=== PATIENT | female | born 1980 | race Caucasian/White ===

== ENCOUNTER → 2016-06-23 | Outpatient (CLI) | payer OTHER ==
[2016-06-23 17:45] LABS: CH 30.5; CHCM 33.2; HCT 37.8 % (34.0-46.0); HDW 2.47; HGB 12.6 gm/dL (11.4-16.0); MCH 30.8 pg (25.0-35.0); MCHC 33.3 g/dL (31.0-37.0); MCV 92.3 fL (80.0-100.0); Mean Platelet Volume 7.8; RDW 12.8 % (11.5-15.5); WBC 8.1 k/uL (3.8-10.6)
[2016-06-23 17:54] LABS: ALT 35 U/L (9-52); AST 23 U/L (14-36); Alkaline Phosphatase 72 U/L (38-126); Amylase 82 U/L (30-110); Anion Gap 12 mmol/L; Blood Urea Nitrogen 15 mg/dL (7-17); Calcium 9.7 mg/dL (8.4-10.2); Carbon Dioxide 23 mmol/L (22-30); Chloride 105 mmol/L (98-107); Glucose 90 mg/dL (74-99); Non-African American GFR(MDRD) >60 (>60 ml/min/1.73 sqM); Potassium 4.5 mmol/L (3.5-5.1); Sodium 140 mmol/L (137-145); Total Bilirubin 0.4 mg/dL (0.2-1.3)
== END | disposition home or self-care (01) ==
LOC: LABWHC1 17:25
PROVIDERS: ATTEND Physician Assistant Medical
DX: K21.9 Gastro-esophageal reflux disease without esophagitis (principal); R10.9 Unspecified abdominal pain; R11.10 Vomiting, unspecified; R53.83 Other fatigue
CPT/HCPCS: 36415; 80053; 82150; 83690; 84443; 85027

== ENCOUNTER 2016-08-14 11:31 | Emergency (ER) | payer OTHER ==
[2016-08-14 11:42] VITALS: RESP 20; TEMP 98.1
[2016-08-14 12:24] LABS: Basophils % (A) 0 %; CHCM 33.6; Eosinophils # (A) 0.1 k/uL (0-0.7); Eosinophils % (A) 2 %; HCT 34.7 % (34.0-46.0); HDW 2.44; HGB 11.5 gm/dL (11.4-16.0); Luc # (Auto) 0.09; Luc % (Auto) 2; Lymphocytes # (A) 1.5 k/uL (1.0-4.8); Lymphocytes % (A) 26 %; MCH 30.6 pg (25.0-35.0); MCV 92.7 fL (80.0-100.0); Monocytes # (A) 0.2 k/uL (0-1.0); Monocytes % (A) 4 %; Neutrophils # (A) 3.9 k/uL (1.3-7.7); Neutrophils % (A) 67 %; RBC 3.75 m/uL (3.80-5.40); RDW 13.4 % (11.5-15.5); WBC 5.9 k/uL (3.8-10.6); WBC (Perox) 6.06
--- NOTE | 2016-08-14 13:07 | US ---
EXAMINATION TYPE: US OB <= 14 wk fetus DATE OF EXAM: 08/14/2016 12:31 PM COMPARISON: 07/23/2016 ultrasound CLINICAL HISTORY: pain. cramping EXAM PERFORMED: Transabdominal (TA) EXAM MEASUREMENTS: GESTATIONAL AGE / DATING Physician Established: (13 weeks/6 days) EDC: 02/13/17 Dates by LMP: unknown Dates by First Scan: (13 weeks/4 days) EDC: 02/15/17 Dates by Current Scan for: (13 weeks/5 days) EDC: 02/14/17 MATERNAL ANATOMY Uterus: 10.3 x 7.4 x 9.5cm Right Ovary: 3.6 x 1.7 x 1.3cm Left Ovary: 4.4 x 2.9 x 1.7cm Post CDS / Adnexa: wnl Presence of free fluid: no GESTATION / SURVEY CRL: 7.7cm (13 weeks/5 days) Yolk Sac (normal less than 6mm): not seen Heart Rate: 147 bpm Rhythm: Normal IUP: Viable IUP Nuchal Translucency 10-14wks (normal less than 3mm): 0.2mm Date of LMP: unknown Beta HcG (if available): unavailable IMPRESSION: Single viable IUP 13wks/5days with OTILIO of 02/14/17. Gestational age is concordant with the recent fet al ultrasound of 07/23/2016.
--- NOTE | 2016-08-14 13:07 | ED ---
General Adult HPI - General Chief complaint: Abdominal Pain Stated complaint: Abdominal Pain 14wks Preg Time Seen by Provider: 08/14/16 11:44 Source: patient, RN notes reviewed, old records reviewed Mode of arrival: ambulatory Limitations: no limitations - History of Present Illness Initial comments: This is a 35-year-old female the ER for evaluation of vaginal bleeding in , is known a positive blood type, patient is a G5 with 1 live , 3 miscarriages fifth . Patient admitted to mild spotting, no bowel pain or cramping. No nausea vomiting, no recent issues of no other issues. - Related Data Home Medications Medication Instructions Recorded Confirmed Flintstones Vitamin 1 tab PO BID 07/23/16 08/14/16 Allergies Allergy/AdvReac Type Severity Reaction Status Date / Time amoxicillin Allergy Anaphylaxis Verified 08/14/16 12:20 Penicillins Allergy Anaphylaxis Verified 08/14/16 12:20 morphine AdvReac Nausea & Verified 08/14/16 12:20 Vomiting RED & GREEN PEPPER Allergy Anaphylaxis Uncoded 08/14/16 12:20 Review of Systems ROS Statement: Those systems with pertinent positive or pertinent negative responses have been documented in the HPI. ROS Other: All systems not noted in ROS Statement are negative. Past Medical History Past Medical History: Asthma Additional Past Medical History / Comment(s): LOW BLOOD SUGAR History of Any Multi-Drug Resistant Organisms: None Reported Past Surgical History: Cholecystectomy Past Psychological History: Anxiety, Bipolar, Depression, Schizophrenia Smoking Status: Never smoker Past Alcohol Use History: None Reported Past Drug Use History: None Reported General Exam Limitations: no limitations General appearance: alert, in no apparent distress Head exam: Present: atraumatic, normocephalic, normal inspection Eye exam: Present: normal appearance, PERRL, EOMI. Absent: scleral icterus, conjunctival injection, periorbital swelling ENT exam: Present: normal exam, mucous membranes moist Neck exam: Present: normal inspection. Absent: tenderness, meningismus, lymphadenopathy Respiratory exam: Present: normal lung sounds bilaterally. Absent: respiratory distress, wheezes, rales, rhonchi, stridor Cardiovascular Exam: Present: regular rate, normal rhythm, normal heart sounds. Absent: systolic murmur, diastolic murmur, rubs, gallop, clicks GI/Abdominal exam: Present: soft, normal bowel sounds. Absent: distended, tenderness, guarding, rebound, rigid Extremities exam: Present: normal inspection, full ROM, normal capillary refill. Absent: tenderness, pedal edema, joint swelling, calf tenderness Back exam: Present: normal inspection Neurological exam: Present: alert, oriented X3, CN II-XII intact Psychiatric exam: Present: normal affect, normal mood Skin exam: Present: warm, dry, intact, normal color. Absent: rash Course Vital Signs 08/14/16 11:40 Temperature 98.1 F Pulse Rate 105 H Respiratory 20 Rate Blood Pressure 101/64 O2 Sat by Pulse 98 Oximetry - Reevaluation(s) Reevaluation #1: 08/14/16 13:06 Patient is asymptomatic, no abdominal pain Medical Decision Making - Medical Decision Making 35 female ER for evaluation of bleeding during , patient is positive blood type, 3 miscarriages, ultrasound is positive for a repeat heart rate 145 - Lab Data Result diagrams: 08/14/16 12:12 Lab Results 08/14/16 08/14/16 08/14/16 Range/Units 12:02 12:05 12:12 WBC 5.9 (3.8-10.6) k/uL RBC 3.75 L (3.80-5.40) m/uL Hgb 11.5 (11.4-16.0) gm/dL Hct 34.7 (34.0-46.0) % MCV 92.7 (80.0-100.0) fL MCH 30.6 (25.0-35.0) pg MCHC 33.0 (31.0-37.0) g/dL RDW 13.4 (11.5-15.5) % Plt Count 223 (150-450) k/uL Neutrophils % 67 % Lymphocytes % 26 % Monocytes % 4 % Eosinophils % 2 % Basophils % 0 % Neutrophils # 3.9 (1.3-7.7) k/uL Lymphocytes # 1.5 (1.0-4.8) k/uL Monocytes # 0.2 (0-1.0) k/uL Eosinophils # 0.1 (0-0.7) k/uL Basophils # 0.0 (0-0.2) k/uL Urine HCG, Qual Detected (Not Detectd) Blood Type A Positive Blood Type Recheck No - Radiology Data Radiology results: report reviewed (Ultrasound is positive for IUP), image reviewed Disposition Clinical Impression: Vaginal bleeding in Disposition: HOME SELF-CARE Condition: Good Instructions: Threatened Miscarriage (ED) Referrals: Beth Bang DO [Primary Care Provider] - 1-2 days
[2016-08-14 13:15] VITALS: BP 100/58; PULSE 81
== END 2016-08-14 13:15 | disposition home or self-care (01) ==
LOC: EC 11:31
DX: O20.9 Hemorrhage in early pregnancy, unspecified (principal); Z3A.13 13 weeks gestation of pregnancy; Z88.0 Allergy status to penicillin; Z88.5 Allergy status to narcotic agent; Z91.018 Allergy to other foods; Z79.899 Other long term (current) drug therapy
CPT/HCPCS: 36415; 76801; 76813; 81025; 84702; 85025; 86900; 86901; 87491; 87591; 99284

== ENCOUNTER → 2016-09-03 | Outpatient (CLI) | payer OTHER ==
[2016-09-03 11:19] LABS: CH 31.7; CHCM 33.9; Glucose 94 mg/dL (74-99); HCT 32.1 % (34.0-46.0); HDW 2.73; HGB 10.7 gm/dL (11.4-16.0); MCH 31.3 pg (25.0-35.0); MCHC 33.4 g/dL (31.0-37.0); Mean Platelet Volume 7.9; Non-African American GFR(MDRD) >60 (>60 ml/min/1.73 sqM); RBC 3.42 m/uL (3.80-5.40); RDW 14.3 % (11.5-15.5); WBC 6.4 k/uL (3.8-10.6)
[2016-09-03 11:50] LABS: Hepatitis B Surface Ag Index 0.07
[2016-09-05 04:47] LABS: HIV-1/HIV-2 Ab Screen NONREAC (NON REAC)
== END | disposition home or self-care (01) ==
LOC: LABWHC1 10:45
PROVIDERS: ATTEND Obstetrics & Gynecology
DX: O26.812 Pregnancy related exhaustion and fatigue, second trimester (principal); Z3A.00 Weeks of gestation of pregnancy not specified
CPT/HCPCS: 36415; 82565; 82947; 85027; 86762; 86780; 86850; 86900; 86901; 87340; 87389

== ENCOUNTER → 2016-10-28 | Outpatient (CLI) | payer OTHER ==
[2016-10-28 13:19] LABS: CH 32.2; CHCM 33.1; HCT 32.1 % (34.0-46.0); HDW 2.73; HGB 10.8 gm/dL (11.4-16.0); MCH 33.1 pg (25.0-35.0); MCHC 33.8 g/dL (31.0-37.0); MCV 97.8 fL (80.0-100.0); Mean Platelet Volume 8.1; RBC 3.28 m/uL (3.80-5.40); RDW 13.8 % (11.5-15.5); WBC 7.1 k/uL (3.8-10.6)
== END ==
LOC: LABWHC1 11:01
PROVIDERS: ATTEND Obstetrics & Gynecology
DX: Z34.92 Encounter for supervision of normal pregnancy, unspecified, second trimester (principal); Z3A.00 Weeks of gestation of pregnancy not specified
CPT/HCPCS: 36415; 82950; 85027

== ENCOUNTER 2016-12-13 12:38 | Outpatient (CLI) | payer OTHER ==
[2016-12-13 13:15] VITALS: BP 110/69; PULSE 89; RESP 16; TEMP 96.6
--- NOTE | 2016-12-13 18:23 | P.MSEPDOC ---
Presenting Problems - Arrival Data Date of Arrival on Unit: 12/13/16 Time of Arrival on Unit: 12:38 Mode of Transport: Ambulatory - Complaint OB-Reason for Admission/Chief Complaint: Other Comment: pain Medical History - Information : 5 Para: 1 Term: 1 : 0 Abortions: Spontaneous or Elective: 3 Number of Living Children: 1 - Gestational Age Expected Date of Delivery: 02/12/17 Gestational Age by OTILIO (wks/days): 31 Weeks and 2 Days Review of Systems - Review of Systems Constitutional: No problems Breast: No problems ENT: No problems Cardiovascular: No problems Respiratory: No problems Gastrointestinal: Diarrhea Genitourinary: No problems Musculoskeletal: No problems Neurological: No problems Skin: No problems Vital Signs - Temperature Temperature: 96.6 F Temperature Source: Temporal Artery Scan - Pulse Pulse Oximetery Pulse Rate: 89 Pulse Assessment Method: Pulse Oximetry - Respirations Respiratory Rate: 16 Oxygen Delivery Method: Room Air O2 Sat by Pulse Oximetry: 96 - Blood Pressure Right Arm Sitting Blood Pressure: 110/69 Blood Pressure Mean: 82 Blood Pressure Source: Automatic Cuff Medical Screen Scoring (Pre) - Cervical Exam Dilation: 0 cm = 0 Membranes: Intact - Uterine Contractions Frequency: N/A Duration: N/A Intensity: N/A - Maternal Vital Signs Maternal Temperature: N/A Maternal Blood Pressure: N/A Signs of Preeclampsia: N/A Maternal Respirations: N/A - Maternal Trauma Maternal Trauma: N/A - Assessment Baseline FHR: 140 Heart Rate - NICHD Category: Category I (Normal) = 0 NST: Reactive Position: N/A Station: N/A - Total Score Total Score (Pre): 0 - Level of Risk Level of Risk: Low (0-5) Medical Screen Scoring (Post) - Uterine Contractions Frequency: N/A Duration: N/A Intensity: N/A - Maternal Vital Signs Maternal Temperature: N/A Maternal Blood Pressure: N/A Signs of Preeclampsia: N/A Maternal Respirations: N/A - Maternal Trauma Maternal Trauma: N/A - Assessment Heart Rate: 140 Heart Rate - NICHD Category: Category I (Normal) = 0 NST: Reactive Position: N/A Station: N/A - Total Score Total Score (Post): 0 - Post Treatment Level of Risk Post Treatment Level of Risk: Low (0-5) Physician Notification (Post) - Physician Notified Physician Notified Date: 12/13/16 Physician Notified Time: 14:08 Physician/Practitioner Notified:: Dr Spence New Order Received: Yes - Notification Comment Comment: reported neg FFN, no contx, vag exam, pt's c/o pain, pt's PPD screen of 17 to ob. Reported that pt shows no signs of wanting to harm herself at this time. OB states pt is seeing a counselor and she will be coming in on so Dr Spence will address it then. Disposition - Disposition OB Disposition: Discharge to home Discharge Date: 12/13/16 Discharge Time: 14:15 I agree with the RN Medical Screening Exam: Yes Risk & Benefit of care provided described in d/c instruction: Yes Diagnosis: PELVIC AND PERINEAL PAIN
== END 2016-12-13 14:15 | disposition home or self-care (01) ==
LOC: FBPOP 12:38
PROVIDERS: ATTEND Obstetrics & Gynecology
DX: O99.89 Other specified diseases and conditions complicating pregnancy, childbirth and the puerperium (principal); R10.2 Pelvic and perineal pain; Z3A.31 31 weeks gestation of pregnancy
CPT/HCPCS: 59025; 82731; G0463; 99213

== ENCOUNTER 2016-12-22 14:59 | Outpatient (CLI) | payer OTHER ==
[2016-12-22 15:36] VITALS: BP 108/58; PULSE 73; RESP 16; TEMP 98.1
--- NOTE | 2016-12-23 07:48 | P.MSEPDOC ---
Presenting Problems - Arrival Data Date of Arrival on Unit: 12/22/16 Time of Arrival on Unit: 15:07 Mode of Transport: Ambulatory - Complaint OB-Reason for Admission/Chief Complaint: Rule Out PROM, Decreased Movement Comment: pt states clear fluid x 1 week Medical History - Information : 5 Para: 1 Term: 1 : 0 Abortions: Spontaneous or Elective: 3 Number of Living Children: 1 - Gestational Age Expected Date of Delivery: 02/12/17 Gestational Age by OTILIO (wks/days): 32 Weeks and 5 Days Review of Systems - Review of Systems Constitutional: No problems Breast: No problems ENT: No problems Cardiovascular: No problems Respiratory: No problems Gastrointestinal: No problems Genitourinary: No problems Musculoskeletal: No problems Neurological: No problems Skin: No problems Vital Signs - Temperature Temperature: 98.1 F Temperature Source: Oral - Pulse Left Sitting Brachial Pulse Rate: 73 Pulse Assessment Method: Automatic Cuff - Respirations Respiratory Rate: 16 Oxygen Delivery Method: Room Air O2 Sat by Pulse Oximetry: 99 - Blood Pressure Left Arm Sitting Blood Pressure: 108/58 Blood Pressure Mean: 74 Blood Pressure Source: Automatic Cuff Medical Screen Scoring (Pre) - Cervical Exam Dilation: Exam Deferred Effacement: Exam Deferred - Uterine Contractions Frequency: N/A Duration: N/A Intensity: N/A - Maternal Vital Signs Maternal Temperature: N/A Maternal Blood Pressure: N/A Signs of Preeclampsia: N/A Maternal Respirations: N/A - Maternal Trauma Maternal Trauma: N/A - Assessment Baseline FHR: 130 Heart Rate - NICHD Category: Category I (Normal) = 0 NST: Reactive Position: N/A Station: N/A - Total Score Total Score (Pre): 0 - Level of Risk Level of Risk: Low (0-5) Physician Notification (Pre) - Physician Notified Physician Notified Date: 12/22/16 Physician Notified Time: 15:26 Physician/Practitioner Notifed:: CARLOS ENRIQUE Spoke With: CARLOS ENRIQUE New Order Received: Yes - Notification Comment Comment: NEGATIVE AMNISURE, REACTIVE FHT. D/C HOME, FOLLOW UP AT NEXT SCHEDULED APPT Disposition - Disposition OB Disposition: Discharge to home Discharge Date: 12/22/16 Discharge Time: 15:30 I agree with the RN Medical Screening Exam: Yes Risk & Benefit of care provided described in d/c instruction: Yes Diagnosis: FALSE LABOR BEFORE 37 COMPLETED WEEKS OF GEST, THIRD TRI
== END 2016-12-22 15:30 | disposition home or self-care (01) ==
LOC: FBPOP 14:59
PROVIDERS: ATTEND Obstetrics & Gynecology
DX: O47.03 False labor before 37 completed weeks of gestation, third trimester (principal); Z3A.32 32 weeks gestation of pregnancy
CPT/HCPCS: 59025; 84112; G0463; 99213

== ENCOUNTER 2016-12-29 13:14 | Outpatient (CLI) | payer OTHER ==
[2016-12-29 15:05] VITALS: BP 101/64; PULSE 82; RESP 18; TEMP 98.1
--- NOTE | 2016-12-29 17:42 | P.MSEPDOC ---
Presenting Problems - Arrival Data Date of Arrival on Unit: 12/29/16 Time of Arrival on Unit: 13:15 Mode of Transport: Ambulatory - Complaint OB-Reason for Admission/Chief Complaint: Rule Out PROM, Decreased Movement Comment: 33 4/7 wks Medical History - Information : 5 Para: 1 Term: 1 : 0 Abortions: Spontaneous or Elective: 3 Number of Living Children: 1 - Gestational Age Expected Date of Delivery: 02/12/17 Gestational Age by OTILIO (wks/days): 33 Weeks and 4 Days Review of Systems - Review of Systems Constitutional: No problems Breast: No problems ENT: No problems Cardiovascular: No problems Respiratory: No problems Gastrointestinal: No problems Genitourinary: No problems Musculoskeletal: No problems Neurological: No problems Skin: No problems Comment: mosquito bites on arms, hx of seizure in august of 2015- no meds- no diagnosis. hx of schizophreniz and anx/depression....scor eof 18 on edinb. depr. score. sees physician regarding schizo. during while off of meds. Vital Signs - Temperature Temperature: 98.1 F Temperature Source: Oral - Pulse Right Brachial Pulse Rate: 82 Pulse Assessment Method: Automatic Cuff - Respirations Respiratory Rate: 18 Oxygen Delivery Method: Room Air O2 Sat by Pulse Oximetry: 99 - Blood Pressure Right Arm Blood Pressure: 101/64 Blood Pressure Mean: 76 Blood Pressure Source: Automatic Cuff Medical Screen Scoring (Pre) - Cervical Exam Dilation: Exam Deferred Effacement: Exam Deferred Membranes: Intact - Uterine Contractions Frequency: N/A Duration: N/A Intensity: N/A - Maternal Vital Signs Maternal Temperature: N/A Maternal Blood Pressure: N/A Signs of Preeclampsia: N/A Maternal Respirations: N/A - Maternal Trauma Maternal Trauma: N/A - Assessment Baseline FHR: 135 Heart Rate - NICHD Category: Category I (Normal) = 0 NST: Reactive Position: N/A Station: N/A - Total Score Total Score (Pre): 0 - Level of Risk Level of Risk: Low (0-5) Physician Notification (Pre) - Physician Notified Physician/Practitioner Notifed:: yes Spoke With: reji Abdi Order Received: Yes - Notification Comment Comment: discharge home Medical Screen Scoring (Post) - Cervical Exam Dilation: Exam Deferred Effacement: Exam Deferred Membranes: Intact - Uterine Contractions Frequency: N/A Duration: N/A Intensity: N/A - Maternal Vital Signs Maternal Temperature: N/A Maternal Blood Pressure: N/A Signs of Preeclampsia: N/A Maternal Respirations: N/A - Maternal Trauma Maternal Trauma: N/A - Assessment Heart Rate: 135 Heart Rate - NICHD Category: Category I (Normal) = 0 NST: Reactive Position: N/A Station: N/A - Total Score Total Score (Post): 0 - Post Treatment Level of Risk Post Treatment Level of Risk: Low (0-5) Physician Notification (Post) - Physician Notified Physician Notified Date: 12/29/16 Physician Notified Time: 14:22 Physician/Practitioner Notified:: yes Spoke With: reji Abdi Order Received: Yes - Notification Comment Comment: discharge home Disposition - Disposition OB Disposition: Discharge to home Discharge Date: 12/29/16 Discharge Time: 14:45 I agree with the RN Medical Screening Exam: Yes Risk & Benefit of care provided described in d/c instruction: Yes Diagnosis: FALSE LABOR BEFORE 37 COMPLETED WEEKS OF GEST, THIRD TRI
== END 2016-12-29 14:45 | disposition home or self-care (01) ==
LOC: FBPOP 13:14
PROVIDERS: ATTEND Obstetrics & Gynecology
DX: O47.03 False labor before 37 completed weeks of gestation, third trimester (principal); Z3A.33 33 weeks gestation of pregnancy
CPT/HCPCS: 59025; 84112; G0463; 99213

== ENCOUNTER 2017-01-01 17:42 | Outpatient (CLI) | payer OTHER ==
[2017-01-01 18:39] VITALS: BP 114/67; PULSE 81; RESP 16; TEMP 96.7
--- NOTE | 2017-01-25 05:54 | P.MSEPDOC ---
Presenting Problems - Arrival Data Date of Arrival on Unit: 01/01/17 Time of Arrival on Unit: 17:42 Mode of Transport: Ambulatory Medical History - Information : 5 Para: 1 Term: 1 : 0 Abortions: Spontaneous or Elective: 3 Number of Living Children: 1 - Gestational Age Gestational Age by OTILIO (wks/days): 34 Weeks and 0 Days Vital Signs - Temperature Temperature: 96.7 F Temperature Source: Temporal Artery Scan - Pulse Pulse Oximetery Pulse Rate: 81 Pulse Assessment Method: Pulse Oximetry - Respirations Respiratory Rate: 16 Oxygen Delivery Method: Room Air - Blood Pressure Right Arm Blood Pressure: 114/67 Blood Pressure Mean: 82 Blood Pressure Source: Automatic Cuff Medical Screen Scoring (Post) - Cervical Exam Dilation: Exam Deferred - Uterine Contractions Frequency: N/A Duration: N/A - Maternal Vital Signs Maternal Temperature: N/A Maternal Blood Pressure: N/A Signs of Preeclampsia: N/A Maternal Respirations: N/A - Maternal Trauma Maternal Trauma: N/A - Assessment Heart Rate: 135 Heart Rate - NICHD Category: Category I (Normal) = 0 NST: Reactive Position: N/A Station: N/A - Total Score Total Score (Post): 0 Physician Notification (Post) - Physician Notified Physician Notified Date: 01/01/17 Physician Notified Time: 18:14 Physician/Practitioner Notified:: snow Spoke With: snow New Order Received: Yes - Notification Comment Comment: discharge home, educate on kick-counts Disposition - Disposition OB Disposition: Discharge to home Discharge Date: 01/01/17 Discharge Time: 18:38 I agree with the RN Medical Screening Exam: Yes Risk & Benefit of care provided described in d/c instruction: Yes Diagnosis: DECREASED MOVEMENTS, THIRD TRIMESTER, UNSP
== END 2017-01-01 18:39 | disposition home or self-care (01) ==
LOC: FBPOP 17:42
PROVIDERS: ATTEND Obstetrics & Gynecology
DX: O36.8130 Decreased fetal movements, third trimester, not applicable or unspecified (principal); Z3A.34 34 weeks gestation of pregnancy
CPT/HCPCS: 59025; G0463; 99213

== ENCOUNTER 2017-01-10 17:40 | Outpatient (CLI) | payer OTHER ==
[2017-01-10 18:25] VITALS: BP 109/68; PULSE 80; RESP 16; TEMP 97.6
--- NOTE | 2017-01-11 04:05 | P.MSEPDOC ---
Presenting Problems - Arrival Data Date of Arrival on Unit: 01/10/17 Time of Arrival on Unit: 17:52 Mode of Transport: Ambulatory - Complaint OB-Reason for Admission/Chief Complaint: Rule Out PROM Medical History - Information : 5 Para: 1 Term: 1 : 0 Abortions: Spontaneous or Elective: 3 Number of Living Children: 1 - Gestational Age Expected Date of Delivery: 02/12/17 Gestational Age by OTILIO (wks/days): 35 Weeks and 3 Days - History Complications: Prior Review of Systems - Review of Systems Constitutional: No problems Breast: No problems ENT: No problems Cardiovascular: No problems Respiratory: No problems Gastrointestinal: No problems Genitourinary: No problems Musculoskeletal: No problems Neurological: No problems Skin: No problems Vital Signs - Temperature Temperature: 97.6 F Temperature Source: Temporal Artery Scan - Pulse Right Pulse Rate: 80 Pulse Assessment Method: Automatic Cuff - Respirations Respiratory Rate: 16 Oxygen Delivery Method: Room Air O2 Sat by Pulse Oximetry: 95 - Blood Pressure Right Arm Blood Pressure: 109/68 Blood Pressure Mean: 81 Blood Pressure Source: Automatic Cuff Medical Screen Scoring (Pre) - Cervical Exam Dilation: 1-3 cm = 1 Membranes: Intact - Uterine Contractions Frequency: N/A Duration: N/A Intensity: N/A - Maternal Vital Signs Maternal Temperature: N/A Maternal Blood Pressure: N/A Signs of Preeclampsia: N/A Maternal Respirations: N/A - Maternal Trauma Maternal Trauma: N/A - Assessment Baseline FHR: 125 Heart Rate - NICHD Category: Category I (Normal) = 0 NST: Reactive Position: N/A - Total Score Total Score (Pre): 1 - Level of Risk Level of Risk: Low (0-5) Physician Notification (Pre) - Physician Notified Physician Notified Date: 01/10/17 Physician Notified Time: 18:08 Spoke With: Jordy Abdi Order Received: Yes (afia) - Notification Comment Comment: 1cm/negative amnisure, no contractions Disposition - Disposition OB Disposition: Triage, Discharge to home, Written follow up instructions reviewed Discharge Date: 01/10/17 Discharge Time: 18:20 I agree with the RN Medical Screening Exam: Yes Risk & Benefit of care provided described in d/c instruction: Yes Diagnosis: FALSE LABOR BEFORE 37 COMPLETED WEEKS OF GEST, THIRD TRI
== END 2017-01-10 18:20 | disposition home or self-care (01) ==
LOC: FBPOP 17:40
PROVIDERS: ATTEND Obstetrics & Gynecology
DX: O47.03 False labor before 37 completed weeks of gestation, third trimester (principal); Z3A.35 35 weeks gestation of pregnancy
CPT/HCPCS: 59025; 84112; G0463; 99213

== ENCOUNTER 2017-01-19 20:01 | Outpatient (CLI) | payer OTHER ==
[2017-01-19 20:38] VITALS: BP 123/60; PULSE 74; RESP 18; TEMP 97.3
--- NOTE | 2017-01-20 09:33 | P.MSEPDOC ---
Presenting Problems - Arrival Data Date of Arrival on Unit: 01/19/17 Time of Arrival on Unit: 20:00 Mode of Transport: Wheelchair - Complaint OB-Reason for Admission/Chief Complaint: Pain Medical History - Information : 5 Para: 1 Term: 1 : 0 Abortions: Spontaneous or Elective: 3 Number of Living Children: 1 - Gestational Age Gestational Age by OTILIO (wks/days): 36 Weeks and 4 Days Review of Systems - Review of Systems Constitutional: No problems Breast: No problems ENT: No problems Cardiovascular: No problems Respiratory: No problems Gastrointestinal: No problems Genitourinary: No problems Musculoskeletal: No problems Neurological: No problems Skin: No problems Vital Signs - Temperature Temperature: 97.3 F Temperature Source: Temporal Artery Scan - Pulse Right Sitting Brachial Pulse Rate: 74 Pulse Assessment Method: Pulse Oximetry - Respirations Respiratory Rate: 18 Oxygen Delivery Method: Room Air - Blood Pressure Right Arm Sitting Blood Pressure: 123/60 Blood Pressure Mean: 81 Blood Pressure Source: Automatic Cuff Medical Screen Scoring (Pre) - Cervical Exam Dilation: 1-3 cm = 1 Effacement: Exam Deferred Membranes: Intact - Uterine Contractions Frequency: N/A Duration: N/A Intensity: N/A - Maternal Vital Signs Maternal Temperature: N/A Maternal Blood Pressure: N/A Signs of Preeclampsia: N/A Maternal Respirations: N/A - Maternal Trauma Maternal Trauma: N/A - Assessment Baseline FHR: 150 Heart Rate - NICHD Category: Category I (Normal) = 0 NST: Reactive Position: N/A Station: N/A - Total Score Total Score (Pre): 1 - Level of Risk Level of Risk: Low (0-5) Physician Notification (Pre) - Physician Notified Physician Notified Date: 01/19/17 Physician Notified Time: 08:33 Physician/Practitioner Notifed:: dr costa Spoke With: dr costa New Order Received: Yes - Notification Comment Comment: pt presents with pelvic pain and pressure, reports some leaking. amnisure negative, nst reactive, no contactions noted. pt discharged home without interventions. Disposition - Disposition OB Disposition: Discharge to home Discharge Date: 01/19/17 Discharge Time: 20:37 I agree with the RN Medical Screening Exam: Yes Risk & Benefit of care provided described in d/c instruction: Yes Diagnosis: FALSE LABOR BEFORE 37 COMPLETED WEEKS OF GEST, THIRD TRI
== END 2017-01-19 20:42 | disposition home or self-care (01) ==
LOC: FBPOP 20:01
PROVIDERS: ATTEND Obstetrics & Gynecology
DX: O47.03 False labor before 37 completed weeks of gestation, third trimester (principal); Z3A.36 36 weeks gestation of pregnancy
CPT/HCPCS: 59025; 84112; G0463; 99213

== ENCOUNTER 2017-01-27 02:15 | Outpatient (CLI) | payer OTHER ==
[2017-01-27 03:33] VITALS: BP 119/77; PULSE 62; RESP 18; TEMP 97.5
--- NOTE | 2017-01-27 06:09 | P.MSEPDOC ---
Presenting Problems - Arrival Data Date of Arrival on Unit: 01/27/17 Time of Arrival on Unit: 02:15 Mode of Transport: Wheelchair - Complaint OB-Reason for Admission/Chief Complaint: Possible Onset of Labor, Rule Out SROM Comment: Pt states she has been leaking fluid since 2100 and her ctx started at 2300. Pt states she doesn't know how close her ctx are. Medical History - Information : 5 Para: 1 Term: 1 : 0 Abortions: Spontaneous or Elective: 3 Number of Living Children: 1 - Gestational Age Gestational Age by OTILIO (wks/days): 37 Weeks and 5 Days Review of Systems - Review of Systems Constitutional: No problems Breast: No problems ENT: No problems Cardiovascular: No problems Respiratory: No problems Gastrointestinal: No problems Genitourinary: No problems Musculoskeletal: No problems Neurological: No problems Skin: No problems Comment: Pt schizophrenic Vital Signs - Temperature Temperature: 97.5 F Temperature Source: Oral - Pulse Pulse Oximetery Pulse Rate: 62 Pulse Assessment Method: Pulse Oximetry - Respirations Respiratory Rate: 18 Oxygen Delivery Method: Room Air O2 Sat by Pulse Oximetry: 100 - Blood Pressure Right Arm Blood Pressure: 119/77 Blood Pressure Mean: 91 Blood Pressure Source: Automatic Cuff Medical Screen Scoring (Pre) - Cervical Exam Dilation: 1-3 cm = 1 Effacement: More than 50% = 2 Membranes: Intact - Uterine Contractions Frequency: N/A Duration: N/A Intensity: N/A - Maternal Vital Signs Maternal Temperature: N/A Maternal Blood Pressure: N/A Signs of Preeclampsia: N/A Maternal Respirations: N/A - Maternal Trauma Maternal Trauma: N/A - Assessment Baseline FHR: 120 Heart Rate - NICHD Category: Category I (Normal) = 0 NST: Reactive Position: N/A Station: N/A - Total Score Total Score (Pre): 3 - Level of Risk Level of Risk: Low (0-5) Physician Notification (Pre) - Physician Notified Physician Notified Date: 01/27/17 Physician Notified Time: 03:02 Physician/Practitioner Notifed:: Dr. Hernández Spoke With: Dr. Hernández New Order Received: Yes - Notification Comment Comment: Orders for discharge given by Dr. Hernández Disposition - Disposition OB Disposition: Discharge to home Discharge Date: 10/06/17 Discharge Time: 03:13 I agree with the RN Medical Screening Exam: Yes Risk & Benefit of care provided described in d/c instruction: Yes Diagnosis: FALSE LABOR AT OR AFTER 37 COMPLETED WEEKS OF GESTATION
== END 2017-01-27 03:13 | disposition home or self-care (01) ==
LOC: FBPOP 02:15
PROVIDERS: ATTEND Obstetrics & Gynecology
DX: O47.1 False labor at or after 37 completed weeks of gestation (principal); Z3A.37 37 weeks gestation of pregnancy
CPT/HCPCS: 59025; 84112; G0463; 99213

== ENCOUNTER 2017-02-02 15:03 | Outpatient (CLI) | payer OTHER ==
[2017-02-02 16:27] VITALS: BP 114/75; PULSE 80; RESP 17; TEMP 97.6
--- NOTE | 2017-02-03 23:03 | P.MSEPDOC ---
Presenting Problems - Arrival Data Date of Arrival on Unit: 02/02/17 Time of Arrival on Unit: 15:03 Mode of Transport: Ambulatory - Complaint OB-Reason for Admission/Chief Complaint: Possible Onset of Labor Medical History - Information : 5 Para: 1 Term: 1 : 0 Abortions: Spontaneous or Elective: 3 Number of Living Children: 1 - Gestational Age Gestational Age by OTILIO (wks/days): 38 Weeks and 4 Days Review of Systems - Review of Systems Constitutional: No problems Breast: No problems ENT: No problems Cardiovascular: No problems Respiratory: No problems Gastrointestinal: No problems Genitourinary: No problems Musculoskeletal: No problems Neurological: No problems Skin: No problems Comment: pt has a hx of schizophrenia and bipolar Vital Signs - Temperature Temperature: 97.6 F Temperature Source: Temporal Artery Scan - Pulse Right Brachial Pulse Rate: 80 Pulse Assessment Method: Automatic Cuff - Respirations Respiratory Rate: 17 Oxygen Delivery Method: Room Air O2 Sat by Pulse Oximetry: 100 - Blood Pressure Right Arm Blood Pressure: 114/75 Blood Pressure Mean: 88 Blood Pressure Source: Automatic Cuff Medical Screen Scoring (Pre) - Cervical Exam Dilation: 1-3 cm = 1 Membranes: Intact - Uterine Contractions Frequency: > 5 minutes apart = 1 Duration: > 40 seconds = 2 - Maternal Vital Signs Maternal Temperature: N/A Maternal Blood Pressure: N/A Signs of Preeclampsia: N/A Maternal Respirations: N/A - Maternal Trauma Maternal Trauma: N/A - Assessment Baseline FHR: 135 Heart Rate - NICHD Category: Category I (Normal) = 0 NST: Reactive Position: N/A Station: N/A - Total Score Total Score (Pre): 4 - Level of Risk Level of Risk: Low (0-5) Physician Notification (Pre) - Physician Notified Physician Notified Date: 02/02/17 Physician Notified Time: 16:22 Physician/Practitioner Notifed:: Dr Spence Spoke With: Dr Spence New Order Received: Yes (wy home) - Notification Comment Comment: pts cervix remained the same after 1 hour of monitoring, pt reports decrease in pain Disposition - Disposition OB Disposition: Discharge to home, Written follow up instructions reviewed Discharge Date: 02/02/17 Discharge Time: 16:26 I agree with the RN Medical Screening Exam: Yes Risk & Benefit of care provided described in d/c instruction: Yes Diagnosis: FALSE LABOR AT OR AFTER 37 COMPLETED WEEKS OF GESTATION
== END 2017-02-02 16:36 | disposition home or self-care (01) ==
LOC: FBPOP 15:03
PROVIDERS: ATTEND Obstetrics & Gynecology
DX: O47.1 False labor at or after 37 completed weeks of gestation (principal); Z3A.38 38 weeks gestation of pregnancy
CPT/HCPCS: 59025; G0463; 99213

== ENCOUNTER 2017-07-17 08:01 | Emergency (ER) | payer OTHER ==
[2017-07-17] MEDS ORDERED: DEXAMETHASONE SOD PHOSPHATE 10 MG/ML 1 ML VIAL IV STA (08:14)
[2017-07-17] MEDS ORDERED: SODIUM CHLORIDE 0.9% 1,000 ML IV STA (08:14)
[2017-07-17] MEDS ORDERED: ALBUTEROL NEBULIZED 2.5 MG/3 ML INHALATION STA (08:14)
[2017-07-17] MEDS ORDERED: IPRATROPIUM 0.5 MG/2.5 ML NEBU INHALATION STA (08:14)
[2017-07-17 08:16] VITALS: RESP 16
--- NOTE | 2017-07-17 08:18 | ED ---
General Adult HPI - General Chief complaint: Shortness of Breath Stated complaint: POSS PNUEMONIA Time Seen by Provider: 07/17/17 08:09 Source: patient, RN notes reviewed Mode of arrival: ambulatory Limitations: no limitations - History of Present Illness Initial comments: 36 yo female presents for evaluation of cough and congestion. Patient has past medical history of asthma. She states over the past several days she has had rhinorrhea, sore throat, and dry cough. She's also had several episodes of vomiting. She denies significant abdominal pain. States she's had a temperature at home of between 99 and 102. She also complains of significant dyspnea associated with her cough. Patient denies current . Denies dysuria. Denies alcohol or illicit drug use. - Related Data Home Medications Medication Instructions Recorded Confirmed Albuterol Sulfate [Proair Hfa] 2 puff INHALATION RT-Q4H PRN 07/17/17 07/17/17 FLUoxetine HCL [PROzac] 20 mg PO DAILY 07/17/17 07/17/17 Montelukast Sodium [Singulair] 10 mg PO HS 07/17/17 07/17/17 OLANZapine [ZyPREXA] 2.5 mg PO DAILY 07/17/17 07/17/17 Omeprazole [PriLOSEC] 20 mg PO DAILY 07/17/17 07/17/17 Topiramate [Topamax] 100 mg PO DAILY 07/17/17 07/17/17 diphenhydrAMINE [Benadryl] 25 mg PO HS 07/17/17 07/17/17 Previous Rx's Medication Instructions Recorded Albuterol Inhaler [Ventolin Hfa 1 - 2 puff INHALATION Q4HR PRN #1 07/17/17 Inhaler] inhaler Azithromycin [Zithromax Z-pack] 0 mg PO DIRECTED #6 tab 07/17/17 predniSONE 50 mg PO DAILY #5 tab 07/17/17 Allergies Allergy/AdvReac Type Severity Reaction Status Date / Time amoxicillin Allergy Anaphylaxis Verified 07/17/17 08:57 Penicillins Allergy Anaphylaxis Verified 07/17/17 08:57 morphine AdvReac Nausea & Verified 07/17/17 08:57 Vomiting RED & GREEN PEPPER Allergy Anaphylaxis Uncoded 07/17/17 08:07 Review of Systems ROS Statement: Those systems with pertinent positive or pertinent negative responses have been documented in the HPI. ROS Other: All systems not noted in ROS Statement are negative. Past Medical History Past Medical History: Asthma Additional Past Medical History / Comment(s): Obstetric history: She has had one voluntary termination and 2 spontaneous abortions. She is also had one vaginal delivery 8 lbs. 6 oz. This is her fifth . She's had care with me since 16 weeks gestation. Her blood type is A+, antibodies negative, rubella nonimmune, RPR nonreactive, hepatitis B negative, HIV nonreactive. She does have a significant mental health history with schizophrenia and borderline personality disorder and bipolar. She has not been on any medications for this but been in counselling and in contact with her psychiatrist. GBS negative. History of Any Multi-Drug Resistant Organisms: None Reported Past Surgical History: Cholecystectomy Past Anesthesia/Blood Transfusion Reactions: No Reported Reaction Past Psychological History: Anxiety, Bipolar, Depression, Schizophrenia Smoking Status: Never smoker Past Alcohol Use History: None Reported Past Drug Use History: None Reported - Past Family History Mother Family Medical History: Diabetes Mellitus, Hypertension General Exam Limitations: no limitations General appearance: alert, in no apparent distress Head exam: Present: atraumatic, normocephalic Eye exam: Present: normal appearance, PERRL ENT exam: Present: normal exam Neck exam: Present: normal inspection. Absent: tenderness, meningismus Respiratory exam: Present: wheezes, decreased breath sounds, prolonged expiratory Cardiovascular Exam: Present: regular rate, normal rhythm GI/Abdominal exam: Present: soft. Absent: distended, tenderness, guarding Extremities exam: Present: normal inspection, full ROM. Absent: tenderness Neurological exam: Present: alert, oriented X3, CN II-XII intact. Absent: motor sensory deficit Psychiatric exam: Present: normal affect, normal mood Skin exam: Present: warm, dry, intact. Absent: cyanosis, diaphoretic Course Vital Signs 07/17/17 07/17/17 07/17/17 08:04 08:15 08:25 Temperature 97.7 F 98.3 F Pulse Rate 89 77 72 Respiratory 86 H 16 Rate Blood Pressure 115/73 110/66 O2 Sat by Pulse 98 97 Oximetry 07/17/17 07/17/17 08:42 09:22 Temperature Pulse Rate 84 Respiratory 16 Rate Blood Pressure O2 Sat by Pulse Oximetry - Reevaluation(s) Reevaluation #1: 07/17/17 09:29 On reevaluation, patient has improved air entry, decreased wheezing. Symptomatically she feels better. Medical Decision Making - Medical Decision Making 36-year-old female presenting with cough congestion, patient has history of asthma. Albuterol Atrovent, and steroids in the emergency department, on reevaluation she is feeling better. Laboratory studies reveal normal white blood cell count, stable hemoglobin, potassium 3.3 this is replaced, influenza negative, chest x-ray shows reactive airway pattern with no focal pneumonia. Patient will be given a refill on her albuterol, short course of steroids and antibiotic. She will follow-up with her primary care physician. Return with worsening or changing symptoms. - Lab Data Result diagrams: 07/17/17 08:19 07/17/17 08:19 Lab Results 07/17/17 07/17/17 07/17/17 Range/Units 08:19 08:19 08:19 WBC 5.5 (3.8-10.6) k/uL RBC 4.20 (3.80-5.40) m/uL Hgb 12.7 (11.4-16.0) gm/dL Hct 35.2 (34.0-46.0) % MCV 83.8 (80.0-100.0) fL MCH 30.3 (25.0-35.0) pg MCHC 36.1 (31.0-37.0) g/dL RDW 12.6 (11.5-15.5) % Plt Count 174 (150-450) k/uL Neutrophils % 64 % Lymphocytes % 27 % Monocytes % 5 % Eosinophils % 1 % Basophils % 0 % Neutrophils # 3.5 (1.3-7.7) k/uL Lymphocytes # 1.5 (1.0-4.8) k/uL Monocytes # 0.2 (0-1.0) k/uL Eosinophils # 0.1 (0-0.7) k/uL Basophils # 0.0 (0-0.2) k/uL Sodium 138 (137-145) mmol/L Potassium 3.3 L (3.5-5.1) mmol/L Chloride 105 (98-107) mmol/L Carbon Dioxide 19 L (22-30) mmol/L Anion Gap 14 mmol/L BUN 9 (7-17) mg/dL Creatinine 0.90 (0.52-1.04) mg/dL Est GFR (CKD-EPI)AfAm >90 (>60 ml/min/1.73 sqM) Est GFR (CKD-EPI)NonAf 83 (>60 ml/min/1.73 sqM) Glucose 105 H (74-99) mg/dL Calcium 9.0 (8.4-10.2) mg/dL Total Bilirubin 0.4 (0.2-1.3) mg/dL AST 23 (14-36) U/L ALT 22 (9-52) U/L Alkaline Phosphatase 97 (38-126) U/L Total Protein 7.0 (6.3-8.2) g/dL Albumin 3.9 (3.5-5.0) g/dL Influenza Type A RNA Not Detected (Not Detectd) Influenza Type B (PCR) Not Detected (Not Detectd) Disposition Clinical Impression: Asthma with exacerbation Disposition: HOME SELF-CARE Condition: Good Instructions: Acute Bronchitis (ED), Asthma (ED) Prescriptions: Albuterol Inhaler [Ventolin Hfa Inhaler] 1 - 2 puff INHALATION Q4HR PRN #1 inhaler PRN Reason: Shortness Of Breath Azithromycin [Zithromax Z-pack] 0 mg PO DIRECTED #6 tab predniSONE 50 mg PO DAILY #5 tab Referrals: Beth Bang DO [Primary Care Provider] - 1-2 days Time of Disposition: 09:31
[2017-07-17 08:39] LABS: Basophils % (A) 0 %; Eosinophils # (A) 0.1 k/uL (0-0.7); Eosinophils % (A) 1 %; HCT 35.2 % (34.0-46.0); HGB 12.7 gm/dL (11.4-16.0); Lymphocytes # (A) 1.5 k/uL (1.0-4.8); Lymphocytes % (A) 27 %; MCH 30.3 pg (25.0-35.0); MCHC 36.1 g/dL (31.0-37.0); MCV 83.8 fL (80.0-100.0); Mean Platelet Volume 7.1; Monocytes # (A) 0.2 k/uL (0-1.0); Monocytes % (A) 5 %; Neutrophils # (A) 3.5 k/uL (1.3-7.7); Neutrophils % (A) 64 %; Platelet Count 174 k/uL (150-450); RDW 12.6 % (11.5-15.5); WBC 5.5 k/uL (3.8-10.6)
[2017-07-17 08:48] LABS: ALT 22 U/L (9-52); AST 23 U/L (14-36); Albumin 3.9 g/dL (3.5-5.0); Alkaline Phosphatase 97 U/L (38-126); Anion Gap 14 mmol/L; Blood Urea Nitrogen 9 mg/dL (7-17); Carbon Dioxide 19 mmol/L (22-30); Chloride 105 mmol/L (98-107); Glucose 105 mg/dL (74-99); Potassium 3.3 mmol/L (3.5-5.1); Sodium 138 mmol/L (137-145); Total Bilirubin 0.4 mg/dL (0.2-1.3)
[2017-07-17] MEDS ORDERED: POTASSIUM CHLORIDE ER 20 MEQ TAB.ER PO STA (09:26)
--- NOTE | 2017-07-17 09:26 | XR ---
EXAMINATION TYPE: XR chest 2V DATE OF EXAM: 07/17/2017 COMPARISON: Prior chest 01/12/2016 HISTORY: Difficulty breathing TECHNIQUE: Frontal and lateral views of the chest are obtained. FINDINGS: There is no focal air space opacity, pleural effusion, or pneumothorax seen. The cardiac silhouette size is within normal limits. There is bronchial wall thickening present. There are overly ing cardiac leads. The osseous structures are intact. IMPRESSION: Correlate for bronchitis, reactive airways disease, follow-up as indicated.
[2017-07-17 09:59] VITALS: BP 119/60; PULSE 94; TEMP 98.5
== END 2017-07-17 10:00 | disposition home or self-care (01) ==
LOC: EC 08:01
DX: J45.901 Unspecified asthma with (acute) exacerbation (principal); F31.9 Bipolar disorder, unspecified; F41.9 Anxiety disorder, unspecified; F20.9 Schizophrenia, unspecified; Z88.0 Allergy status to penicillin; Z88.5 Allergy status to narcotic agent; Z91.018 Allergy to other foods; Z79.899 Other long term (current) drug therapy
CPT/HCPCS: 99285; 96374; 96361; 36415; 94640; 80053; 85025; 87502; 71046; J1100

== ENCOUNTER → 2018-04-16 | Outpatient (CLI) | payer OTHER ==
--- NOTE | 2018-04-16 11:17 | CT ---
EXAMINATION TYPE: CT abdomen pelvis w con DATE OF EXAM: 04/16/2018 HISTORY: Family history of gastric tumor, nausea post eating, pain CT DLP: 463.9mGycm Automated Exposure Control for Dose Reduction was Utilized. CONTRAST: CT scan of the abdomen and pelvis is performed with IV Contrast, patient injected with 100 mL of Isov ue 300. COMPARISON: CT abdomen pelvis January 26, 2015 FINDINGS: LUNG BASES: No significant abnormality is appreciated. LIVER/GB: Cholecystectomy clips are redemonstrated. PANCREAS: No significant abnormality is seen. SPLEEN: No significant abnormality is seen. ADRENALS: No significant abnormality is seen. KIDNEYS: No significant abnormality is seen. BOWEL: Oral contrast does not reach level of terminal ileum making evaluation slightly suboptimal. Vi sualized stomach is felt within normal limits. There is no suspicious small or large bowel dilatation identified. Appendix is felt within normal limits from base of cecum. UTERUS/ADNEXA: Anteverted uterus is seen. Both ovaries are present axial image 67 along uterine kathy n, right is slightly larger than left. No suspicious adnexal masses are seen. LYMPH NODES: No greater than 1cm abdominal or pelvic lymph nodes are appreciated. OSSEOUS STRUCTURES: Spine is straightened on sagittal images. OTHER: No significant additional abnormality is seen. IMPRESSION: No significant new or finding is seen to account for patient's clinical symptoms of pain and nausea after eating.
== END | disposition home or self-care (01) ==
LOC: RADCTMAIN 08:56
PROVIDERS: ATTEND Family Medicine
DX: R10.84 Generalized abdominal pain (principal); Z83.79 Family history of other diseases of the digestive system; Z88.0 Allergy status to penicillin
CPT/HCPCS: 74177; Q9967

== ENCOUNTER 2018-06-07 09:17 | Day surgery (SDC) | payer OTHER ==
[2018-06-05 16:32] VITALS: BMI 22.8
[~2018-06-07 09:17] MED LIST: LACTATED RINGERS 1,000 ML IV SCH; LIDOCAINE 1% 20 ML VIAL (10MG/ML) FOR IV START INTRADERMA PRN; MIDAZOLAM (PF) 2 MG/2 ML VIAL IV PRN
[2018-06-07 09:55] VITALS: TEMP 97.9
[2018-06-07] MEDS ORDERED: LIDOCAINE 1% INJ 10MG/ML (20 ML MDV) ONE (10:42)
[2018-06-07] MEDS ORDERED: fentaNYL (PF) 50 MCG/ML 2 ML AMP ONE (10:42)
[2018-06-07] MEDS ORDERED: PROPOFOL 10 MG/ML 20 ML VIAL IV ONE (10:42)
[2018-06-07] MEDS ORDERED: MIDAZOLAM 2 MG/2 ML VIAL ONE (10:42)
[2018-06-07] MEDS ORDERED: ALBUTEROL INHALER 60 PUFF/8 GM INHALER INHALATION ONE (10:42)
[2018-06-07] MEDS ORDERED: ONDANSETRON 4 MG/2 ML VIAL ONE (10:42)
[2018-06-07 11:27] VITALS: RESP 16
[2018-06-07 11:55] VITALS: BP 107/69; PULSE 55
--- NOTE | 2018-06-07 12:23 | P.PCN ---
Date of Procedure: 06/07/18 Procedure(s) Performed: Procedure: 1. Esophagogastroduodenoscopy and biopsy. 2. Aborted colonoscopy. Preoperative diagnosis: Abdominal pain and rectal bleeding. Postoperative diagnosis: 1. Mild antral gastritis. 2. Biopsies obtained from the duodenum, antrum and esophagus. 3. Colonoscopy aborted because of extremely poor preparation. Preparation: HalfLytely prep. Sedation: Was provided by anesthesia. Brief clinical history: The patient is a 37-year-old female who I have evaluated in the office last month in regards to abdominal pain and rectal bleeding. She was also complaining of nausea and abdominal bloating. Apparently, there is history of colitis in the past. Family history of stomach cancers in her mother. Procedure: With the patient on her left lateral decubitus position and after informed consent and adequate sedation, I passed the Olympus-GIF H190 video upper endoscope through the cricopharyngeus down the esophagus. GE junction was around 40 cm from the incisors and there was no definite hiatal hernia or any obvious esophagitis or complicated reflux disease. The endoscope was then passed into the stomach which was insufflated with air and inspected in detail including the retroflex view in the cardia. There was some mottling and erythema in the antrum but no ulcers or erosions. Pyloric channel, duodenal bulb, post bulbar area and descending duodenum appeared within normal limits. Because of her symptoms, I obtained biopsies from the duodenum, antrum and esophagus then the endoscope was withdrawn and then I proceeded to perform the colonoscopy. Perianal area did not show any fissures or fistulas. No masses were felt on digital rectal examination. The Olympus CFH 190L video colonoscope was then inserted in the rectum in the usual fashion, however, unfortunately, I was not able to advance the endoscope because of extremely poor preparation and the colonoscopy was, therefore, aborted. The patient tolerated the procedure well. Plan: The patient was reassured. Will await biopsy results. I suggested that she contact our office to reschedule a colonoscopy at a time convenient for her and I recommended two-day prep at that time. I will keep you updated on her progress.
== END 2018-06-07 12:23 | disposition home or self-care (01) ==
LOC: ORWHC2ENDO 09:17
DX: K29.50 Unspecified chronic gastritis without bleeding (principal); K62.5 Hemorrhage of anus and rectum; J45.909 Unspecified asthma, uncomplicated; K21.9 Gastro-esophageal reflux disease without esophagitis; Z86.69 Personal history of other diseases of the nervous system and sense organs; F41.9 Anxiety disorder, unspecified; F43.10 Post-traumatic stress disorder, unspecified; F20.9 Schizophrenia, unspecified; F32.9 Major depressive disorder, single episode, unspecified; Z88.1 Allergy status to other antibiotic agents; Z88.5 Allergy status to narcotic agent; Z88.0 Allergy status to penicillin; Z79.899 Other long term (current) drug therapy
CPT/HCPCS: 81025; 88305; 43239; 45330; J2250; J2405; J2001; J3010; J2704

== ENCOUNTER → 2018-07-13 | Outpatient (CLI) | payer OTHER ==
[2018-07-13 19:50] LABS: Calcium 9.5 mg/dL (8.7-10.3); Carbon Dioxide 25.7 mmol/L (21.6-31.8); Chloride 108 mmol/L (96-109); Glucose 76 mg/dL (70-110); Lithium <0.1 mmol/L (1.0-1.2); Potassium 4.3 mmol/L (3.5-5.5); Sodium 139 mmol/L (135-145)
== END | disposition home or self-care (01) ==
LOC: LABWHC1 13:27
PROVIDERS: ATTEND Psychiatry & Neurology Psychiatry
DX: Z51.81 Encounter for therapeutic drug level monitoring (principal); Z79.899 Other long term (current) drug therapy
CPT/HCPCS: 36415; 80048; 80178; 84439; 84443

== ENCOUNTER 2018-09-12 12:29 | Emergency (ER) | payer OTHER ==
[2018-09-12 12:52] VITALS: RESP 18
--- NOTE | 2018-09-12 13:52 | XR ---
EXAMINATION TYPE: XR chest 2V DATE OF EXAM: 09/12/2018 COMPARISON: 07/17/2017 TECHNIQUE: PA and lateral views submitted. HISTORY: Cough and pain FINDINGS: The lungs are clear and there is no pneumothorax, pleural effusion, or focal pneumonia. Biapical pl eural thickening. Hyperinflation suggests COPD. Hypertrophic change of the vertebral column. IMPRESSION: 1. No acute process. Correlate for COPD.
[2018-09-12 14:17] VITALS: BP 110/68; PULSE 73; TEMP 98.7
--- NOTE | 2018-09-12 14:24 | ED ---
URI HPI - General Chief Complaint: Upper Respiratory Infection Stated Complaint: cough, SOB Time Seen by Provider: 09/12/18 13:01 Source: patient, family, RN notes reviewed Mode of arrival: ambulatory Limitations: no limitations - History of Present Illness Initial Comments: 37-year-old female presents emergency Department for cough congestion. Patient had worsening symptoms last 1 week. Patient has underlying lung disease. Patient states she is a nonsmoker though she is exposed to smoke daily. Patient states her cough is productive. 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 Patient states that she is late on her menstrual cycle though she does not believe that she is . - Related Data Home Medications Medication Instructions Recorded Confirmed Montelukast Sodium [Singulair] 10 mg PO DAILY 07/17/17 09/12/18 Dicyclomine HCl 20 mg PO DAILY 06/05/18 09/12/18 Loratadine [Claritin] 10 mg PO DAILY 06/05/18 09/12/18 Omeprazole 40 mg PO DAILY 06/05/18 09/12/18 Sertraline [Zoloft] 100 mg PO DAILY 06/05/18 09/12/18 Albuterol Nebulized [Ventolin 2.5 mg INHALATION RT-Q6H PRN 09/12/18 09/12/18 Nebulized] Previous Rx's Medication Instructions Recorded Albuterol Sulfate [Proair Hfa] 1 - 2 puff INHALATION Q4HR PRN #1 09/12/18 inhaler Azithromycin [Zithromax Z-pack] 0 mg PO DIRECTED #1 pack 09/12/18 Benzonatate [Tessalon Perles] 100 mg PO TID PRN #15 capsule 09/12/18 predniSONE 50 mg PO DAILY #5 tab 09/12/18 Allergies Allergy/AdvReac Type Severity Reaction Status Date / Time amoxicillin Allergy Anaphylaxis Verified 09/12/18 13:55 Penicillins Allergy Anaphylaxis Verified 09/12/18 13:55 morphine AdvReac Nausea & Verified 09/12/18 13:55 Vomiting RED & GREEN PEPPER Allergy Anaphylaxis Uncoded 09/12/18 12:52 Review of Systems ROS Statement: Those systems with pertinent positive or pertinent negative responses have been documented in the HPI. ROS Other: All systems not noted in ROS Statement are negative. Past Medical History Past Medical History: Asthma, GERD/Reflux, Seizure Disorder Additional Past Medical History / Comment(s): states seizure august 2016., INSOMNIA. ARTHRITIS HANDS., STATES STOMACH "PROBLEMSS" AND HX OF BLOOD IN STOOL. History of Any Multi-Drug Resistant Organisms: None Reported Past Surgical History: Cholecystectomy Past Anesthesia/Blood Transfusion Reactions: Motion Sickness, Postoperative Nausea & Vomiting (PONV) Past Psychological History: Anxiety, Depression, PTSD, Schizophrenia Smoking Status: Former smoker Past Alcohol Use History: None Reported Past Drug Use History: None Reported - Past Family History Mother Family Medical History: Cancer, Diabetes Mellitus, Hypertension Additional Family Medical History / Comment(s): STOMACH CANCER General Exam Limitations: no limitations General appearance: alert, in no apparent distress Head exam: Present: atraumatic, normocephalic, normal inspection Neck exam: Present: normal inspection. Absent: tenderness, meningismus, lymphadenopathy Respiratory exam: Present: normal lung sounds bilaterally. Absent: respiratory distress, wheezes, rales, rhonchi, stridor Cardiovascular Exam: Present: regular rate, normal rhythm, normal heart sounds. Absent: systolic murmur, diastolic murmur, rubs, gallop, clicks GI/Abdominal exam: Present: soft, normal bowel sounds. Absent: distended, tenderness, guarding, rebound, rigid Back exam: Absent: CVA tenderness (R), CVA tenderness (L) Skin exam: Present: warm, dry, intact, normal color. Absent: rash Course Vital Signs 09/12/18 09/12/18 09/12/18 12:49 13:18 14:17 Temperature 97.9 F 98.7 F Pulse Rate 85 73 Respiratory 18 18 18 Rate Blood Pressure 100/64 110/68 O2 Sat by Pulse 98 97 Oximetry Medical Decision Making - Medical Decision Making 37-year-old female sent for cough congestion. Patient's chest x-ray shows evidence of COPD. Patient has no evidence of pneumonia. Patient treated for acute bronchitis with azithromycin, prednisone, Tessalon Perles. - Lab Data Lab Results 09/12/18 Range/Units 13:18 Urine HCG, Qual Not Detected (Not Detectd) Disposition Clinical Impression: Bronchitis Disposition: HOME SELF-CARE Condition: Stable Instructions (If sedation given, give patient instructions): Upper Respiratory Infection (ED) Additional Instructions: Please return to the Emergency Department if symptoms worsen or any other concerns. Prescriptions: predniSONE 50 mg PO DAILY #5 tab Albuterol Sulfate [Proair Hfa] 1 - 2 puff INHALATION Q4HR PRN #1 inhaler PRN Reason: difficulty in breathing Benzonatate [Tessalon Perles] 100 mg PO TID PRN #15 capsule PRN Reason: Cough Azithromycin [Zithromax Z-pack] 0 mg PO DIRECTED #1 pack Is patient prescribed a controlled substance at d/c from ED?: No Referrals: Beth Bang DO [Primary Care Provider] - 1-2 days Time of Disposition: 14:24
== END 2018-09-12 14:35 | disposition home or self-care (01) ==
LOC: EC 12:29
DX: J20.9 Acute bronchitis, unspecified (principal); J44.0 Chronic obstructive pulmonary disease with (acute) lower respiratory infection; F41.9 Anxiety disorder, unspecified; F32.9 Major depressive disorder, single episode, unspecified; F43.10 Post-traumatic stress disorder, unspecified; K21.9 Gastro-esophageal reflux disease without esophagitis; Z77.22 Contact with and (suspected) exposure to environmental tobacco smoke (acute) (chronic); Z88.0 Allergy status to penicillin; Z88.5 Allergy status to narcotic agent; Z91.018 Allergy to other foods; Z79.899 Other long term (current) drug therapy
CPT/HCPCS: 71046; 81025; 99285

== ENCOUNTER 2019-01-11 08:16 | Emergency (ER) | payer OTHER ==
[2019-01-11] MEDS ORDERED: KETOROLAC 60 MG/2 ML VIAL IVP STA (08:40)
--- NOTE | 2019-01-11 08:46 | ED ---
General Adult HPI - General Chief complaint: Chest Pain Stated complaint: Chest pain Time Seen by Provider: 01/11/19 08:20 Source: patient, RN notes reviewed Mode of arrival: ambulatory Limitations: no limitations - History of Present Illness Initial comments: This is a 38-year-old female presents emergency Department complaining of sharp chest pain or center of her chest and occasionally under her right breast. She states is increased with movement and increased with palpation. Patient states takes a deep breath it is worse as well. Patient denies any shortness of breath. Patient denies any radiation of the pain. Patient states been ongoing for states anytime she twists she feels pain. Patient denies any nausea. Patient denies any history of high blood pressure diabetes or high cholesterol. Patient denies any smoking history patient denies any family history. Patient denies any recent fever chills she states she has a dry cough. Patient denies any leg swelling. Patient denies abdominal pain patient denies vomiting diarrhea. Patient denies any headache or dizziness - Related Data Home Medications Medication Instructions Recorded Confirmed Loratadine [Claritin] 10 mg PO DAILY 06/05/18 01/11/19 Sertraline [Zoloft] 100 mg PO DAILY 06/05/18 01/11/19 QUEtiapine [SEROquel] 50 mg PO HS 01/11/19 01/11/19 Previous Rx's Medication Instructions Recorded Albuterol Sulfate [Proair Hfa] 1 - 2 puff INHALATION Q4HR PRN #1 09/12/18 inhaler Ibuprofen [Motrin] 600 mg PO Q6HR PRN #20 tab 01/11/19 Allergies Allergy/AdvReac Type Severity Reaction Status Date / Time amoxicillin Allergy Anaphylaxis Verified 01/11/19 08:20 codeine Allergy Unknown Verified 01/11/19 08:34 Penicillins Allergy Anaphylaxis Verified 01/11/19 08:20 morphine AdvReac Nausea & Verified 01/11/19 08:20 Vomiting RED & GREEN PEPPER Allergy Anaphylaxis Uncoded 01/11/19 08:20 Review of Systems ROS Statement: Those systems with pertinent positive or pertinent negative responses have been documented in the HPI. ROS Other: All systems not noted in ROS Statement are negative. Past Medical History Past Medical History: Asthma, GERD/Reflux, Seizure Disorder Additional Past Medical History / Comment(s): states seizure august 2016., INSOMNIA. ARTHRITIS HANDS., STATES STOMACH "PROBLEMS" AND HX OF BLOOD IN STOOL. History of Any Multi-Drug Resistant Organisms: None Reported Past Surgical History: Cholecystectomy Past Anesthesia/Blood Transfusion Reactions: Motion Sickness, Postoperative Nausea & Vomiting (PONV) Past Psychological History: Anxiety, Depression, PTSD, Schizophrenia Smoking Status: Former smoker Past Alcohol Use History: None Reported Past Drug Use History: None Reported - Past Family History Mother Family Medical History: Cancer, Diabetes Mellitus, Hypertension Additional Family Medical History / Comment(s): STOMACH CANCER General Exam - General Exam Comments Initial Comments: GENERAL: Patient is well-developed and well-nourished. Patient is nontoxic and well- hydrated and is in mild distress. ENT: Neck is soft and supple. No significant lymphadenopathy is noted. Oropharynx is clear. Moist mucous membranes. Neck has full range of motion without eliciting any pain. were felt. EYES: The sclera were anicteric and conjunctiva were pink and moist. Extraocular movements were intact and pupils were equal round and reactive to light. Eyelids were unremarkable. PULMONARY: Unlabored respirations. Good breath sounds bilaterally. No audible rales rhonchi or wheezing was noted. CARDIOVASCULAR: There is a regular rate and rhythm without any murmurs gallops or rubs. ABDOMEN: Soft and nontender with normal bowel sounds. No palpable organomegaly was noted. There is no palpable pulsatile mass. SKIN: Skin is clear with no lesions or rashes and otherwise unremarkable. NEUROLOGIC: Patient is alert and oriented x3. Cranial nerves II through XII are grossly intact. Motor and sensory are also intact. Normal speech, volume and content. Symmetrical smile. MUSCULOSKELETAL: Normal extremities with adequate strength and full range of motion. No lower extremity swelling or edema. No calf tenderness. LYMPHATICS: No significant lymphadenopathy is noted PSYCHIATRIC: Normal psychiatric evaluation. 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 Organomegaly wasn't V3 V4. Chest x-ray shows no acute abnormality. CT of the chest shows no pulmonary embolism. - Lab Data Result diagrams: 01/11/19 08:58 01/11/19 08:58 Lab Results 01/11/19 01/11/19 01/11/19 Range/Units 08:58 08:58 08:58 WBC 5.1 (3.8-10.6) k/uL RBC 4.01 (3.80-5.40) m/uL Hgb 12.2 (11.4-16.0) gm/dL Hct 36.0 (34.0-46.0) % MCV 89.8 (80.0-100.0) fL MCH 30.3 (25.0-35.0) pg MCHC 33.8 (31.0-37.0) g/dL RDW 14.9 (11.5-15.5) % Plt Count 149 L (150-450) k/uL Neutrophils % 74 % Lymphocytes % 15 % Monocytes % 4 % Eosinophils % 5 % Basophils % 0 % Neutrophils # 3.8 (1.3-7.7) k/uL Lymphocytes # 0.8 L (1.0-4.8) k/uL Monocytes # 0.2 (0-1.0) k/uL Eosinophils # 0.2 (0-0.7) k/uL Basophils # 0.0 (0-0.2) k/uL PT 9.9 (9.0-12.0) sec INR 0.9 (<1.2) APTT 26.2 (22.0-30.0) sec D-Dimer 0.74 H (<0.60) mg/L FEU Sodium 138 (137-145) mmol/L Potassium 4.4 (3.5-5.1) mmol/L Chloride 107 (98-107) mmol/L Carbon Dioxide 21 L (22-30) mmol/L Anion Gap 10 mmol/L BUN 11 (7-17) mg/dL Creatinine 0.81 (0.52-1.04) mg/dL Est GFR (CKD-EPI)AfAm >90 (>60 ml/min/1.73 sqM) Est GFR (CKD-EPI)NonAf >90 (>60 ml/min/1.73 sqM) Glucose 91 (74-99) mg/dL Calcium 9.3 (8.4-10.2) mg/dL Magnesium 1.9 (1.6-2.3) mg/dL Total Bilirubin 0.6 (0.2-1.3) mg/dL AST 21 (14-36) U/L ALT 14 (9-52) U/L Alkaline Phosphatase 63 (38-126) U/L Troponin I (0.000-0.034) ng/mL Total Protein 6.9 (6.3-8.2) g/dL Albumin 4.2 (3.5-5.0) g/dL Urine HCG, Qual (Not Detectd) 01/11/19 01/11/19 Range/Units 08:58 09:09 WBC (3.8-10.6) k/uL RBC (3.80-5.40) m/uL Hgb (11.4-16.0) gm/dL Hct (34.0-46.0) % MCV (80.0-100.0) fL MCH (25.0-35.0) pg MCHC (31.0-37.0) g/dL RDW (11.5-15.5) % Plt Count (150-450) k/uL Neutrophils % % Lymphocytes % % Monocytes % % Eosinophils % % Basophils % % Neutrophils # (1.3-7.7) k/uL Lymphocytes # (1.0-4.8) k/uL Monocytes # (0-1.0) k/uL Eosinophils # (0-0.7) k/uL Basophils # (0-0.2) k/uL PT (9.0-12.0) sec INR (<1.2) APTT (22.0-30.0) sec D-Dimer (<0.60) mg/L FEU Sodium (137-145) mmol/L Potassium (3.5-5.1) mmol/L Chloride (98-107) mmol/L Carbon Dioxide (22-30) mmol/L Anion Gap mmol/L BUN (7-17) mg/dL Creatinine (0.52-1.04) mg/dL Est GFR (CKD-EPI)AfAm (>60 ml/min/1.73 sqM) Est GFR (CKD-EPI)NonAf (>60 ml/min/1.73 sqM) Glucose (74-99) mg/dL Calcium (8.4-10.2) mg/dL Magnesium (1.6-2.3) mg/dL Total Bilirubin (0.2-1.3) mg/dL AST (14-36) U/L ALT (9-52) U/L Alkaline Phosphatase (38-126) U/L Troponin I <0.012 (0.000-0.034) ng/mL Total Protein (6.3-8.2) g/dL Albumin (3.5-5.0) g/dL Urine HCG, Qual Not Detected (Not Detectd) Disposition Clinical Impression: Chest wall pain Disposition: HOME SELF-CARE Condition: Good Instructions (If sedation given, give patient instructions): Chest Wall Pain (ED) Prescriptions: Ibuprofen [Motrin] 600 mg PO Q6HR PRN #20 tab PRN Reason: For pain Is patient prescribed a controlled substance at d/c from ED?: No Referrals: Beth Bang DO [Primary Care Provider] - 1-2 days Time of Disposition: 12:19
[2019-01-11 09:10] LABS: Basophils % (A) 0 %; Eosinophils # (A) 0.2 k/uL (0-0.7); Eosinophils % (A) 5 %; HGB 12.2 gm/dL (11.4-16.0); Lymphocytes # (A) 0.8 k/uL (1.0-4.8); Lymphocytes % (A) 15 %; MCH 30.3 pg (25.0-35.0); MCHC 33.8 g/dL (31.0-37.0); MCV 89.8 fL (80.0-100.0); Mean Platelet Volume 7.4; Monocytes # (A) 0.2 k/uL (0-1.0); Monocytes % (A) 4 %; Neutrophils # (A) 3.8 k/uL (1.3-7.7); Neutrophils % (A) 74 %; Platelet Count 149 k/uL (150-450); RBC 4.01 m/uL (3.80-5.40); RDW 14.9 % (11.5-15.5); WBC 5.1 k/uL (3.8-10.6)
[2019-01-11 09:19] LABS: African American GFR (CKD) >90 (>60 ml/min/1.73 sqM); Albumin 4.2 g/dL (3.5-5.0); Anion Gap 10 mmol/L; Blood Urea Nitrogen 11 mg/dL (7-17); Calcium 9.3 mg/dL (8.4-10.2); Carbon Dioxide 21 mmol/L (22-30); Chloride 107 mmol/L (98-107); Glucose 91 mg/dL (74-99); Sodium 138 mmol/L (137-145); Total Bilirubin 0.6 mg/dL (0.2-1.3); Total Protein 6.9 g/dL (6.3-8.2)
[2019-01-11 09:22] LABS: ALT 14 U/L (9-52); AST 21 U/L (14-36); Alkaline Phosphatase 63 U/L (38-126); Magnesium 1.9 mg/dL (1.6-2.3); Potassium 4.4 mmol/L (3.5-5.1)
[2019-01-11 09:23] VITALS: RESP 16
[2019-01-11 09:23] LABS: INR 0.9 (<1.2); Partial Thromboplastin Time 26.2 sec (22.0-30.0); Prothrombin Time 9.9 sec (9.0-12.0)
[2019-01-11 09:47] LABS: D-Dimer 0.74 mg/L FEU (<0.60)
--- NOTE | 2019-01-11 10:11 | XR ---
EXAMINATION TYPE: XR chest 2V DATE OF EXAM: 01/11/2019 COMPARISON: NONE HISTORY: Chest pain, asthma TECHNIQUE: Frontal and lateral views of the chest are obtained. FINDINGS: There is no focal air space opacity, pleural effusion, or pneumothorax seen. The cardiac silhouette size is within normal limits. The osseous structures are intact. Surgical clips present right upper quadrant. There are overlying cardiac leads. IMPRESSION: No acute cardiopulmonary process.
--- NOTE | 2019-01-11 12:07 | CT ---
CT CHEST FOR PULMONARY EMBOLISM. EXAMINATION TYPE: CT chest angio for PE DATE OF EXAM: 01/11/2019 INDICATION: Trouble breathing, slight elevation in d-dimer CT DLP: 280 mGycm, Automated exposure control for dose reduction was used. CONTRAST: Patient injected with 100 mL of Isovue 370. COMPARISON: None TECHNIQUE: CT of the chest is performed on a spiral scan at 2 mm thick sections. Study is performed with intravenous contrast timed for evaluation for pulmonary embolism. This will limit additional po rtions of the evaluation. 3-D MIP images reconstructed by the technologist are reviewed on the compu ter in the coronal and sagittal planes. FINDINGS: No persistent filling defects are evident to suggest an acute pulmonary embolism. No mediastinal or hilar adenopathy enlarged by CT criteria is evident. The ascending aorta diameter at the level of the main pulmonary artery is 2.2 cm. The main pulmonary artery diameter at the bifur cation is 2.1 cm. Lung windows are clear. Limited CT section through the upper abdomen are unremarkable. IMPRESSIONS: 1. No acute pulmonary embolism.
[2019-01-11 13:35] VITALS: BP 93/63; PULSE 64; TEMP 98.3
== END 2019-01-11 13:43 | disposition home or self-care (01) ==
LOC: EC 08:16
DX: R07.89 Other chest pain (principal); F31.9 Bipolar disorder, unspecified; F20.9 Schizophrenia, unspecified; F41.9 Anxiety disorder, unspecified; F43.10 Post-traumatic stress disorder, unspecified; Z79.899 Other long term (current) drug therapy; Z88.0 Allergy status to penicillin; Z88.5 Allergy status to narcotic agent; Z87.891 Personal history of nicotine dependence
CPT/HCPCS: 36415; 93005; 85379; 80053; 83735; 84484; 85025; 85610; 85730; 81025; 71046; 71275; 99285; 96374; J1885; Q9967

== ENCOUNTER 2019-03-20 10:02 | Emergency (ER) | payer OTHER ==
[2019-03-20 10:17] VITALS: BP 113/59; PULSE 81; RESP 17; TEMP 98
--- NOTE | 2019-03-20 10:33 | ED ---
Lower Extremity Injury HPI - General Chief Complaint: Extremity Injury, Lower Stated Complaint: rt foot toe injury Time Seen by Provider: 03/20/19 10:18 Source: patient, RN notes reviewed Mode of arrival: ambulatory Limitations: no limitations - History of Present Illness Initial Comments: 38-year-old female presents emergency from chief complaint of right foot third digit pain. Patient states she is running across a street separate toe. Patient states his black and blue. Patient states is painful. No prior fractures denies any paresthesias no pain in her mid to proximal foot. - Related Data Home Medications Medication Instructions Recorded Confirmed Loratadine [Claritin] 10 mg PO DAILY 06/05/18 01/11/19 Sertraline [Zoloft] 100 mg PO DAILY 06/05/18 01/11/19 QUEtiapine [SEROquel] 50 mg PO HS 01/11/19 01/11/19 Previous Rx's Medication Instructions Recorded Albuterol Sulfate [Proair Hfa] 1 - 2 puff INHALATION Q4HR PRN #1 09/12/18 inhaler Ibuprofen [Motrin] 600 mg PO Q6HR PRN #20 tab 01/11/19 Ibuprofen [Motrin] 600 mg PO Q8HR PRN #30 tab 03/20/19 Allergies Allergy/AdvReac Type Severity Reaction Status Date / Time amoxicillin Allergy Anaphylaxis Verified 01/11/19 08:20 codeine Allergy Unknown Verified 01/11/19 08:34 Penicillins Allergy Anaphylaxis Verified 01/11/19 08:20 morphine AdvReac Nausea & Verified 01/11/19 08:20 Vomiting RED & GREEN PEPPER Allergy Anaphylaxis Uncoded 01/11/19 08:20 Review of Systems ROS Statement: Those systems with pertinent positive or pertinent negative responses have been documented in the HPI. ROS Other: All systems not noted in ROS Statement are negative. Past Medical History Past Medical History: Asthma, GERD/Reflux, Seizure Disorder Additional Past Medical History / Comment(s): states seizure august 2016., INSOMNIA. ARTHRITIS HANDS., STATES STOMACH "PROBLEMS" AND HX OF BLOOD IN STOOL. History of Any Multi-Drug Resistant Organisms: None Reported Past Surgical History: Cholecystectomy Past Anesthesia/Blood Transfusion Reactions: Motion Sickness, Postoperative Nausea & Vomiting (PONV) Past Psychological History: Anxiety, Depression, PTSD, Schizophrenia Smoking Status: Former smoker Past Alcohol Use History: None Reported Past Drug Use History: None Reported - Past Family History Mother Family Medical History: Cancer, Diabetes Mellitus, Hypertension Additional Family Medical History / Comment(s): STOMACH CANCER General Exam Limitations: no limitations General appearance: alert, in no apparent distress Head exam: Present: atraumatic, normocephalic, normal inspection Respiratory exam: Present: normal lung sounds bilaterally. Absent: respiratory distress, wheezes, rales, rhonchi, stridor Cardiovascular Exam: Present: regular rate, normal rhythm, normal heart sounds. Absent: systolic murmur, diastolic murmur, rubs, gallop, clicks Extremities exam: Present: other (Right foot third digit there is ecchymosis noted, times with palpation no pain proximal to the MTP region foot is neurovascular intact) Skin exam: Present: warm, dry, intact, normal color. Absent: rash Course Vital Signs 03/20/19 10:14 Temperature 98.0 F Pulse Rate 81 Respiratory 17 Rate Blood Pressure 113/59 O2 Sat by Pulse 99 Oximetry Medical Decision Making - Medical Decision Making X-ray is negative for acute fracture. Patient has a toe contusion. Conservative treatment at this time with close follow-up. Disposition Clinical Impression: Contusion of toe of right foot Disposition: HOME SELF-CARE Condition: Stable Instructions (If sedation given, give patient instructions): Foot Contusion (ED) Additional Instructions: Please return to the Emergency Department if symptoms worsen or any other concerns. Prescriptions: Ibuprofen [Motrin] 600 mg PO Q8HR PRN #30 tab PRN Reason: Pain Is patient prescribed a controlled substance at d/c from ED?: No Referrals: Beth Bang DO [Primary Care Provider] - 1-2 days Time of Disposition: 10:48
--- NOTE | 2019-03-20 10:45 | XR ---
EXAMINATION TYPE: XR foot complete RT DATE OF EXAM: 03/20/2019 CLINICAL HISTORY: Pain and swelling worse over third digit after injury. TECHNIQUE: Frontal, lateral, and oblique images of the right foot are obtained. COMPARISON: None FINDINGS: There is no acute fracture/dislocation evident in the right foot with particular attention to third toe. Some flexion and varus positioning distal third and fourth toes . The joint spaces in the right foot appear within normal limits. The overlying soft tissue appears unremarkable. IMPRESSION: There is no acute fracture or dislocation in the right foot.
== END 2019-03-20 10:54 | disposition home or self-care (01) ==
LOC: EC 10:02
DX: S90.121A Contusion of right lesser toe(s) without damage to nail, initial encounter (principal); F41.9 Anxiety disorder, unspecified; F32.9 Major depressive disorder, single episode, unspecified; F20.9 Schizophrenia, unspecified; Z79.899 Other long term (current) drug therapy; Z88.0 Allergy status to penicillin; Z88.5 Allergy status to narcotic agent; Z91.018 Allergy to other foods; W22.09XA Striking against other stationary object, initial encounter; Y93.02 Activity, running; Y92.410 Unspecified street and highway as the place of occurrence of the external cause
CPT/HCPCS: 99283

== ENCOUNTER → 2019-04-22 | Outpatient (CLI) | payer OTHER ==
--- NOTE | 2019-04-22 08:26 | MM ---
Reason for exam: screening (asymptomatic). Baseline mammogram. History: Patient had first child at age 32. Physical Findings: Nurse did not find any significant physical abnormalities on exam. MG Screening Mammo w CAD Bilateral CC, MLO, and XCCL view(s) were taken. The breast tissue is heterogeneously dense. This may lower the sensitivity of mammography. No suspicious abnormality. These results were verbally communicated with the patient and result sheet given to the patient on 04/22/19. ASSESSMENT: Negative, BI-RAD 1 RECOMMENDATION: Routine screening mammogram of both breasts in 1 year.
== END | disposition home or self-care (01) ==
LOC: RADMAMWWP 07:19
PROVIDERS: ATTEND Obstetrics & Gynecology
DX: Z12.31 Encounter for screening mammogram for malignant neoplasm of breast (principal)
CPT/HCPCS: 77067

== ENCOUNTER 2019-05-09 05:30 | Inpatient (IN) | payer OTHER ==
[2019-05-03 10:25] VITALS: BMI 20.5
--- NOTE | 2019-05-08 18:32 | P.HPOB ---
History of Present Illness H&P Date: 05/08/19 Chief Complaint: Menorrhagia with dysmenorrhea 38-year-old presents for total laparoscopic hysterectomy with da Faye and diagnostic cystoscopy. She has very heavy and painful periods. The pain starts the week before her period and last through her menses. So painful that she can barely move it times. The bleeding gets heavy 20 she has to use 3 pads an hour at times. She has tried control patch but threw up every day she was on the hormones. Review of Systems All systems: negative Constitutional: Denies chills, Denies fever Eyes: denies blurred vision, denies pain Ears, nose, mouth and throat: Denies headache, Denies sore throat Cardiovascular: Denies chest pain, Denies shortness of breath Respiratory: Denies cough Gastrointestinal: Denies abdominal pain, Denies diarrhea, Denies nausea, Denies vomiting Genitourinary: Denies dysuria, Denies hematuria Musculoskeletal: Denies myalgias Integumentary: Denies pruritus, Denies rash Neurological: Denies numbness, Denies weakness Psychiatric: Denies anxiety, Denies depression Endocrine: Denies fatigue, Denies weight change Past Medical History Past Medical History: Asthma, GERD/Reflux, Seizure Disorder Additional Past Medical History / Comment(s): states seizure August 2016. Obstetric history: She has had 2 vaginal deliveries, 1 elective termination, 2 miscarriages History of Any Multi-Drug Resistant Organisms: None Reported Past Surgical History: Cholecystectomy Additional Past Surgical History / Comment(s): EGD Past Anesthesia/Blood Transfusion Reactions: Motion Sickness, Postoperative Nausea & Vomiting (PONV) Past Psychological History: Depression, PTSD, Schizophrenia Additional Psychological History / Comment(s): Borderline personality disorder Smoking Status: Former smoker Past Alcohol Use History: None Reported Past Drug Use History: None Reported - Past Family History Mother Family Medical History: Cancer, Diabetes Mellitus, Hypertension Additional Family Medical History / Comment(s): STOMACH AND PANCREATIC CANCER Medications and Allergies Home Medications Medication Instructions Recorded Confirmed Type Sertraline [Zoloft] 200 mg PO DAILY 06/05/18 05/03/19 History Albuterol Sulfate [Proair Hfa] 1 - 2 puff INHALATION Q4HR PRN #1 09/12/18 05/03/19 Rx inhaler Lurasidone [Latuda] 40 mg PO DAILY 05/03/19 05/03/19 History Methylphenidate HCl [Ritalin LA] 10 mg PO DAILY 05/03/19 05/03/19 History Allergies Allergy/AdvReac Type Severity Reaction Status Date / Time amoxicillin Allergy Anaphylaxis Verified 05/03/19 10:15 codeine Allergy Unknown Verified 05/03/19 10:15 Penicillins Allergy Anaphylaxis Verified 05/03/19 10:15 morphine AdvReac Nausea & Verified 05/03/19 10:15 Vomiting RED & GREEN PEPPER Allergy Anaphylaxis Uncoded 05/03/19 10:15 Exam Osteopathic Statement: *. No significant issues noted on an osteopathic structural exam other than those noted in the History and Physical/Consult. Heart: Regular rate and rhythm Lungs: Clear to auscultation bilaterally Abdomen: Soft, nontender Extremities: Negative Homans sign Assessment and Plan (1) Dysmenorrhea Status: Acute Code(s): N94.6 - DYSMENORRHEA, UNSPECIFIED SNOMED Code(s): 034886850 (2) Menorrhagia Status: Acute Code(s): N92.0 - EXCESSIVE AND FREQUENT MENSTRUATION WITH REGULAR CYCLE SNOMED Code(s): 394851708 Plan: 1. Total laparoscopic hysterectomy with da Faye, diagnostic cystoscopy.
[~2019-05-09 05:30] MED LIST changes: +CLINDAMYCIN 900 MG in DEXTROSE 5% IN WATER 50 ML IVPB ONE; +GENTAMICIN 300 MG in SODIUM CHLORIDE 0.9% 100 ML IVPB ONE; -LACTATED RINGERS 1,000 ML IV SCH; -LIDOCAINE 1% 20 ML VIAL (10MG/ML) FOR IV START INTRADERMA PRN; -MIDAZOLAM (PF) 2 MG/2 ML VIAL IV PRN
[2019-05-09] MEDS ORDERED: SCOPOLAMINE 1.5MG/72HR PATCH TRANSDERM ONE (05:47)
[2019-05-09] MEDS ORDERED: MIDAZOLAM 2 MG/2 ML VIAL IV PRN (05:47)
[2019-05-09] MEDS: LACTATED RINGERS 1,000 ML IV SCH ×4 (06:16→07:13)
[2019-05-09] MEDS: LIDOCAINE 1% (10MG/ML) FOR IV START INTRADERMA ONE ×2 (06:17→06:25)
[2019-05-09] MEDS: DEXAMETHASONE SOD PHOSPHATE 10 MG/ML 1 ML VIAL IV ONE ×2 (06:40→19:30)
[2019-05-09] MEDS: ONDANSETRON 4 MG/2 ML VIAL IVP ONE ×2 (06:44→19:31)
[2019-05-09] MEDS ORDERED: fentaNYL (PF) 50 MCG/ML 2 ML AMP ONE (07:11)
[2019-05-09] MEDS ORDERED: NEOSTIGMINE 1 MG/ML 10 ML VIAL ONE (07:11)
[2019-05-09] MEDS ORDERED: LIDOCAINE 1% INJ 10MG/ML (20 ML MDV) ONE (07:11)
[2019-05-09] MEDS ORDERED: GLYCOPYRROLATE 0.2 MG/ML 2 ML VIAL ONE (07:11)
[2019-05-09] MEDS ORDERED: MIDAZOLAM 2 MG/2 ML VIAL ONE (07:11)
[2019-05-09] MEDS ORDERED: ePHEDrine SULFATE/0.9% NACL/PF 50 MG/5 ML SYRINGE IV ONE (07:11)
[2019-05-09] MEDS ORDERED: SUCCINYLCHOLINE CHLORIDE 100 MG/5 ML SYR IV ONE (07:11)
[2019-05-09] MEDS ORDERED: KETOROLAC 30 MG/ML 1 ML VIAL ONE (07:11)
[2019-05-09] MEDS ORDERED: ROCURONIUM BROMIDE 10 MG/ML 5 ML VIAL IV ONE (07:11)
[2019-05-09] MEDS ORDERED: PROPOFOL 10 MG/ML 20 ML VIAL IV ONE (07:11)
[2019-05-09] MEDS ORDERED: BUPIVACAINE (PF) 0.25% 30 ML VIAL SQ ONE (07:49)
[2019-05-09] MEDS: fentaNYL (PF) 50 MCG/ML 2 ML AMP IV PRN ×2 (09:11→09:30)
--- NOTE | 2019-05-09 09:35 | P.OP ---
Date of Procedure: 05/09/19 Preoperative Diagnosis: 1. Dysmenorrhea 2. Menorrhagia Postoperative Diagnosis: 1. Dysmenorrhea 2. Menorrhagia Procedure(s) Performed: Total laparoscopic hysterectomy with da Faye and diagnostic cystoscopy Anesthesia: SONALI Surgeon: Cyn Spence Psychology Technician #1: Milan Brambila Estimated Blood Loss (ml): 40 IV fluids (ml): 900 Urine output (ml): 400 Pathology: other (Uterus and cervix) Condition: stable Disposition: PACU Operative Findings: Normal uterus, tubes, ovaries. The uterus sounded to 8 cm and the cervix was 3.5 cm in diameter Description of Procedure: Patient taken the operating room where general anesthesia was obtained without difficulty. She is prepped and draped in normal sterile fashion dorsal lithotomy position, legs placed in the Jamal stirrups. Weighted speculum placed in the vagina and the anterior lip the cervix was grasped with single-tooth tenaculum. The uterus sounded to 8 cm and the cervix diameter was 3.5 cm. The appropriate manipulator tip and ring were placed on the Mavis manipulator. The Mavis manipulator was then placed in the uterus. Chavez catheter was also placed. Attention was then turned to the abdomen and gloves were changed. A 5 mm supraumbilical incision was made the scalpel and a 5 mm optical trocar was placed under direct visualization. 10 cm to the right of this and 2 cm down a 5 mm incision was made and 8 mm da Faye port was placed under direct visualization. Same measurements on the opposite side of the patient's abdomen, the 5 mm incision was made and 8 mm da Faye port was placed under direct visualization. In the left upper quadrant a 10 mm incision was made and a 10 mm optical trocar was placed under direct visualization. The 5 mm optical trocar was then replaced with the 8 mm da Faye camera port. The robot was docked on patient's right side. The camera was introduced and then the monopolar curved scissor and [place] bipolar placed under direct visualization. I broke scrub and went to the physician console. The left utero-ovarian ligament was cauterized with the [place] bipolar and cut with monopolar curved scissors. The left round ligament was cauterized with the [place] bipolar and cut with monopolar curved scissors. The posterior leaf of the broad ligament was taken down using the monopolar curved scissors. Anterior leaf of the broad ligament was then taken down using the monopolar curved scissors. The uterine artery was cauterized with the [place] bipolar and cut with monopolar curved scissors. The bladder flap was then started using the monopolar curved scissors. Attention was then turned to the right side of the patient's anatomy and the right utero-ovarian ligament was cauterized with the [place] bipolar and cut with monopolar curved scissors. The right round ligament was cauterized with the [place] bipolar and cut with monopolar curved scissors. Posterior leaf of the broad ligament was taken down using the monopolar curved scissors and the anterior leaf was taken down using the monopolar curved scissors. The uterine artery was cauterized the [place] bipolar cut with monopolar curved scissors. The bladder flap was then finished on this side. Anterior colpotomy was made using the monopolar curved scissors. The rest of the uterus was from the vaginal cuff by following the ring around with the monopolar curved scissors through the uterosacral ligaments back to the anterior portion. Once the uterus and cervix were amputated they were pulled through the vaginal cuff. Hemostasis was assured. The instruments were changed for the Cardier forcep and the rosamaria suture cut. The vaginal cuff was then closed using O stratafix barbed suture in a running fashion. There was a little bleeding in the middle of the incision. I used an 0 Vicryl in a [id number] stitch to reapproximate this area. Hemostasis was again assured and the pelvis was irrigated. All instruments were removed from the abdomen and the robot was undocked. I scrubbed back in to perform a cystoscopy. There were jets from both ureteral orifices. The abdominal incisions were closed with 4-0 Vicryl in a subcuticular fashion. Patient tolerated the procedure well, sponge and instrument counts correct 2 and she was taken to recovery room in stable condition condition
[2019-05-09] MEDS ORDERED: ONDANSETRON 4 MG/2 ML VIAL IVP PRN (10:35)
[2019-05-09] MEDS ORDERED: SIMETHICONE 80 MG CHEWABLE PO PRN (10:35)
[2019-05-09] MEDS ORDERED: diphenhydrAMINE 50 MG/ML 1 ML VIAL IVP PRN (10:35)
[2019-05-09] MEDS ORDERED: fentaNYL (PF) 50 MCG/ML 5 ML AMP IVP ONE (11:02)
[2019-05-09] MEDS ORDERED: HYDROmorphone 1 MG/ML 1 ML SYRINGE IM STA (11:38)
[2019-05-09] MEDS ORDERED: HYDROmorphone 1 MG/ML 1 ML SYRINGE IVP STA (11:50)
[2019-05-09] MEDS: KETOROLAC 30 MG/ML 1 ML VIAL IVP PRN ×2 (15:44→21:49)
[2019-05-09] MEDS: ALBUTEROL NEBULIZED 2.5 MG/3 ML INHALATION PRN (15:50)
[2019-05-09] MEDS: traMADol 50 MG TAB PO PRN (18:00)
[2019-05-09] MEDS ORDERED: HYDROmorphone 1 MG/ML 1 ML SYRINGE IVP PRN (18:52)
[2019-05-09] MEDS: SENNOSIDES-DOCUSATE SODIUM 1 EACH TAB PO SCH (21:50)
[2019-05-10] MEDS: KETOROLAC 30 MG/ML 1 ML VIAL IVP PRN ×3 (04:28→16:48)
[2019-05-10 07:43] LABS: Basophils % (A) 0 %; Eosinophils % (A) 0 %; HCT 31.9 % (34.0-46.0); HGB 10.5 gm/dL (11.4-16.0); Lymphocytes # (A) 1.3 k/uL (1.0-4.8); Lymphocytes % (A) 20 %; MCH 30.6 pg (25.0-35.0); MCHC 32.8 g/dL (31.0-37.0); MCV 93.3 fL (80.0-100.0); Mean Platelet Volume 8.3; Monocytes # (A) 0.3 k/uL (0-1.0); Monocytes % (A) 5 %; Neutrophils # (A) 4.7 k/uL (1.3-7.7); Neutrophils % (A) 73 %; Platelet Count 125 k/uL (150-450); RBC 3.42 m/uL (3.80-5.40); RDW 12.9 % (11.5-15.5); WBC 6.4 k/uL (3.8-10.6)
[2019-05-10] MEDS: traMADol 50 MG TAB PO PRN (08:55)
[2019-05-10] MEDS: SERTRALINE 100 MG TAB PO SCH (08:55)
[2019-05-10] MEDS: METHYLPHENIDATE HCL 5 MG TAB PO SCH ×2 (08:55→14:35)
[2019-05-10] MEDS ORDERED: LURASIDONE 40 MG TAB PO SCH ×2 (09:00→21:00)
[2019-05-10] MEDS: SENNOSIDES-DOCUSATE SODIUM 1 EACH TAB PO SCH (11:12)
--- NOTE | 2019-05-10 12:55 | P.PN ---
Progress Note - Text Progress Note Date: 05/10/19 Status post total laparoscopic hysterectomy with da Faye and diagnostic cystoscopy postop day #1 Patient seen and examined at bedside. She had some numbness in her left leg yesterday that has resolved now. Her catheter came out this morning and she started walking around today. She is ambulating and voiding without difficulty. Her umbilical incision started to have some bleeding though. Her pain is controlled with Ultram and Toradol. Vital signs stable Abdomen: Soft, nontender, most of the incisions are clean, dry, intact with Steri-Strips and stitches. The supraumbilical incision is using some dark blood. We placed a pressure dressing on here to attempt hemostasis. The pressure dressing has been on for 2 hours now and is not bleeding through. THIS dressing on for several more hours. Assessment #1. Status post total laparoscopic hysterectomy with da Faye and diagnostic cystoscopy postop day #1 Plan 1. Keep pressure dressing in place for several more hours. If this continues to ooze and may need to do a stitch here under local anesthetic. 2. Pain control
[2019-05-10] MEDS: ALBUTEROL NEBULIZED 2.5 MG/3 ML INHALATION PRN (17:09)
[2019-05-11] MEDS: IBUPROFEN ORAL SUSP 100 MG/5 ML CUP PO PRN ×2 (00:02→08:40)
[2019-05-11] MEDS: SENNOSIDES-DOCUSATE SODIUM 1 EACH TAB PO SCH ×2 (00:03→08:39)
[2019-05-11] MEDS: SERTRALINE 100 MG TAB PO SCH (09:08)
[2019-05-11] MEDS: METHYLPHENIDATE HCL 5 MG TAB PO SCH (09:08)
[2019-05-11 09:27] VITALS: BP 100/57; PULSE 73; RESP 16; TEMP 97.8
--- NOTE | 2019-05-11 11:40 | DS ---
DISCHARGE SUMMARY PRINCIPAL DIAGNOSIS: Postop day 2 from a robotic assisted laparoscopic hysterectomy. Tara is doing very well this morning. She is ambulating, voiding, and tolerating her diet. She voices no complaints and is requesting discharge home today. Her incision periumbilically which was bleeding yesterday is not bleeding today and is intact and healing well for postop day 2. She does not really require any medications to go home with her, but I may send a prescription for liquid Motrin to the pharmacy if they have it. Other questions are answered for her. PHYSICAL EXAMINATION: On physical exam, vital signs are stable and afebrile. HEART: Regular. LUNGS: Clear. EXTREMITIES: Without pain. ABDOMEN: Soft. Incisions are intact and appear to be healing well. Discharge instructions thoroughly reviewed including but not limited to no heavy lifting, limit stairs and driving, pelvic rest, and this was emphasized; complete pelvic rest for 6 to [address] Spence has cleared her for intercourse. She is aware if she has any high temperatures, heavy bleeding, or severe pain, she needs to notify our office or report to the emergency room. She is stable otherwise for discharge at this time. MMODL / IJN: [id number] /
--- NOTE | 2019-05-22 09:16 | CDI ---
Documentation Clarification Form Date: 05/22/19 From: Kellie Mosher CCS Phone: If you have a question about this query, please contact Lulu Harris, Case Management Coordinator at [phone] between 8am and 5pm. Admit Date: 05/11/19 Discharge Date: 05/11/19 Patient Name: Tara Wagoner Visit Number: [id number] ATTENTION: The Clinical Documentation Specialists (CDI) and [facility] Coding Staff appreciate your assistance in clarifying documentation. Please respond to the clarification below the line at the bottom and electronically sign. The CDI & [facility] Coding staff will review the response and follow-up if needed. Please note: Queries are made part of the Legal Health Record. If you have any questions, please contact the author of this message via ITS. Dear Dr. Spence, The patient was admitted as Outpatient on 05/09/19 at 10:55 am and changed to Observation on 05/09/19 at 22:33 pm. The patient was admitted from Observation to Inpatient on 05/11/19 at 11:11 am. Progress note dated the documents the incision is oozing blood, pressure dressing placed in an attempt to achieve hemostasis. If it continues to ooze, may need a stitch here under local anesthesia. DS documents her incision is not bleeding today, discharged the day of IP admit. Nursing notes on 05/10 note that the patient is having a hard time breathing deep. Nebulizer treatment History/Risk Factors: Asthma, depression, dysmenorrhea, post op status Clinical Indicators: Difficulty breathing post op, incision bleeding Treatment: Pressure dressing, nebulizer treatment In your professional opinion, can you please clarify the diagnosis for the admit from Observation to Inpatient status? Incision bleeding-expected outcome Incision bleeding-unexpected outcome Asthma exacerbation Difficulty breathing Post operative pain control Other, please specify Unable to determine I kept the patient for her incisional bleeding-unexpected after hysterectomy. I signed out to my partner, Dr Brambila who discharged her the following day. MTDD
== END 2019-05-11 12:24 | disposition home or self-care (01) | DRG 989 ==
LOC: OR 05:30 → 4FBP 08:42 → OR 10:41 → 4FBP 10:41 → INTOOBSV 10:42 → UNDOADMOB 10:42 → 4FBP 10:42 → INTOOBSV 05-11 11:11 → OBSVTOIN 05-11 11:11 → UNDODISIN 05-11 12:24 → OR 05-11 12:24 → UNDODISOB 05-11 12:24
PROVIDERS: ADMIT Obstetrics & Gynecology; ATTEND Obstetrics & Gynecology
PROC: 8E0W4CZ Robotic Assisted Procedure of Trunk Region, Percutaneous Endoscopic Approach (ICD-10-PCS; principal; 2019-05-09 07:15)
PROC: 0TJB8ZZ Inspection of Bladder, Via Natural or Artificial Opening Endoscopic (ICD-10-PCS; principal; 2019-05-09 07:15)
PROC: 0UT9FZZ Resection of Uterus, Via Natural or Artificial Opening With Percutaneous Endoscopic Assistance (ICD-10-PCS; principal; 2019-05-09 07:15)
DX: L76.22 Postprocedural hemorrhage of skin and subcutaneous tissue following other procedure (principal); N94.6 Dysmenorrhea, unspecified; N92.0 Excessive and frequent menstruation with regular cycle; J45.909 Unspecified asthma, uncomplicated; G40.909 Epilepsy, unspecified, not intractable, without status epilepticus; F43.10 Post-traumatic stress disorder, unspecified; F32.9 Major depressive disorder, single episode, unspecified; F20.9 Schizophrenia, unspecified; K21.9 Gastro-esophageal reflux disease without esophagitis; Z79.899 Other long term (current) drug therapy; Z90.49 Acquired absence of other specified parts of digestive tract; Z88.5 Allergy status to narcotic agent; Z88.0 Allergy status to penicillin; Z91.018 Allergy to other foods; Z80.0 Family history of malignant neoplasm of digestive organs; Z83.3 Family history of diabetes mellitus; Z82.49 Family history of ischemic heart disease and other diseases of the circulatory system
CPT/HCPCS: 81025; 85025; 86850; 86900; 86901; 88307; 94640

== ENCOUNTER 2019-06-08 10:30 | Observation (INO) | payer OTHER ==
[2019-06-08] MEDS ORDERED: SODIUM CHLORIDE 0.9% 1,000 ML IV STA ×2 (10:52)
--- NOTE | 2019-06-08 11:22 | ED ---
Female Urogenital HPI <Mary JoDainel Nick - Last Filed: 06/08/19 12:35> - General Source: patient Mode of arrival: ambulatory Limitations: no limitations <Chinyere Young - Last Filed: 06/08/19 15:08> - General Chief complaint: Vaginal Bleeding Stated complaint: Hemorrhage Time Seen by Provider: 06/08/19 10:49 - History of Present Illness Initial comments: 38-year-old female presenting today for chief complaint of persistent lower abdominal pain vaginal bleeding with clots status post hysterectomy 05/09/[address] Spence. Patient states she had a laparoscopic partial hysterectomy performed by Dr. Spence she states that she had some vaginal bleeding since she states that this bleeding has occurred every day and is now dark in color. Patient states abdominal pain has also been persistent she denies any increased. Patient states today she had slightly increased bleeding with clots and was told by Dr. Spence on Monday if this occurred to present to the emergency department for further evaluation. Patient denies any shortness of breath chills or palpitations. Patient denies any syncopal episodes. Patient denies having any sex and states that she is on pelvic rest. Patient denies any fevers, or flu like symptoms. Patient denies dysuria, urgency, or frequency. Remaining ROS (-). Upon arrival patient appears well there is no signs of acute distress. Upon history taking pelvic was performed to evaluate the extend of bleeding. (Chinyere Young) - Related Data Home Medications Medication Instructions Recorded Confirmed Albuterol Nebulized [Ventolin 2.5 mg INHALATION RT-QID PRN 06/08/19 06/08/19 Nebulized] Loratadine [Claritin] 10 mg PO DAILY 06/08/19 06/08/19 Lurasidone [Latuda] 40 mg PO AC-SUPPER 06/08/19 06/08/19 Prazosin [Minipress] 1 mg PO HS 06/08/19 06/08/19 Sertraline [Zoloft] 200 mg PO DAILY 06/08/19 06/08/19 Allergies Allergy/AdvReac Type Severity Reaction Status Date / Time amoxicillin Allergy Anaphylaxis Verified 06/08/19 10:56 codeine Allergy Unknown Verified 06/08/19 10:56 Penicillins Allergy Anaphylaxis Verified 06/08/19 10:56 morphine AdvReac Nausea & Verified 06/08/19 10:56 Vomiting RED & GREEN PEPPER Allergy Anaphylaxis Uncoded 06/08/19 10:56 Review of Systems ROS Other: All systems not noted in ROS Statement are negative. <Kosta Camargosstheresa Romero - Last Filed: 06/08/19 12:35> ROS Other: All systems not noted in ROS Statement are negative. <Chinyere Young Patel - Last Filed: 06/08/19 15:08> ROS Statement: Those systems with pertinent positive or pertinent negative responses have been documented in the HPI. Past Medical History Past Medical History: Asthma, GERD/Reflux, Seizure Disorder Additional Past Medical History / Comment(s): states seizure August 2015. Obstetric history: She has had 2 vaginal deliveries, 1 elective termination, 2 miscarriages History of Any Multi-Drug Resistant Organisms: None Reported Past Surgical History: Cholecystectomy, Hysterectomy Additional Past Surgical History / Comment(s): EGD Past Anesthesia/Blood Transfusion Reactions: Motion Sickness, Postoperative Nausea & Vomiting (PONV) Past Psychological History: ADD/ADHD, Depression, PTSD, Schizophrenia Smoking Status: Former smoker Past Alcohol Use History: None Reported Past Drug Use History: None Reported - Past Family History Mother Family Medical History: Cancer, Diabetes Mellitus, Hypertension Additional Family Medical History / Comment(s): STOMACH AND PANCREATIC CANCER <Chinyere Young - Last Filed: 06/08/19 15:08> General Exam Limitations: no limitations <Chinyere Young - Last Filed: 06/08/19 15:08> - General Exam Comments Initial Comments: General: The patient is awake and alert, in no distress Eye: +3 mm pupils are equal, round and reactive to light, extra-ocular movements are intact. No nystagmus. There is normal conjunctiva bilaterally. No signs of icterus. Ears, nose, mouth and throat: There are moist mucous membranes and no oral lesions. Cardiovascular: There is a regular rate and rhythm. No murmur, rub or gallop is appreciated. Respiratory: Lungs are clear to auscultation, respirations are non-labored, breath sounds are equal. No wheezes, stridor, rales, or rhonchi. Gastrointestinal: Incision are nonerythematous, no drainage or redness or dehiscence noted. Soft, non-distended, mild-moderate tenderness to palpation of the pelvic region of the abdomen, remaining abdomen is nontender and without masses or organomegaly noted. There is no rebound or guarding present. Pelvic: No external lesions, vaginal mucosa pink, no bright red blood, dark red clots (small) in vault, with tenderness on bimanual of the adnexa b/l. Musculoskeletal: Normal ROM, no tenderness. Strength 5/5. Sensation intact. Radial and DP pulses equal bilaterally 2+. Neurological: A&O x 3. CN II-XII intact rgossly, There are no obvious motor or sensory deficits. Coordination appears grossly intact. Speech is normal. Skin: Skin is warm and dry and no rashes or lesions are noted. Psychiatric: Cooperative, appropriate mood & affect, normal judgment. (Chinyere Young) Course Vital Signs 06/08/19 06/08/19 06/08/19 10:51 12:23 12:30 Temperature 97 F L Pulse Rate 80 61 62 Respiratory 18 16 16 Rate Blood Pressure 98/60 117/70 117/70 O2 Sat by Pulse 97 100 100 Oximetry 06/08/19 06/08/19 06/08/19 13:00 13:30 14:00 Temperature Pulse Rate 68 64 60 Respiratory 14 15 10 L Rate Blood Pressure 103/82 105/55 122/78 O2 Sat by Pulse 100 99 Oximetry 06/08/19 14:30 Temperature Pulse Rate 60 Respiratory 9 L Rate Blood Pressure 109/72 O2 Sat by Pulse 97 Oximetry Medical Decision Making - Lab Data Result diagrams: 06/08/19 11:15 06/08/19 11:15 <Daniel Camargo - Last Filed: 06/08/19 12:35> - Lab Data Result diagrams: 06/08/19 11:15 06/08/19 11:15 <Chinyere Young - Last Filed: 06/08/19 15:08> - Medical Decision Making PA attestation: I, Dr. Daniel Camargo, personally saw and examined the patient. I have reviewed and agree with the PA findings, including all diagnostic interpretations and treatment plans as written unless otherwise stated. I was present for the mcnair portions of any procedures performed and inclusive time noted for any critical care statement. Patient was seen and evaluated along with Marisol Young, physician orthopedic physician assistant. Briefly, patient presents today with worsening abdominal pain and vaginal bleeding since her hysterectomy that was performed on 05/09/2019. Hysterectomy procedure was performed by Dr. Spence. Laparoscopic hysterectomy was performed. Patient reports that she's been having bleeding and abdominal pain since the procedure. Patient most recently seen Dr. Spence 4 days ago. Patient reports that Dr. Spence told her that she is not supposed to have bleeding after the procedure. Patient was initially seen and evaluated by Marisol Young, physician orthopedic physician assistant. Marisol Young perform CT of the abdomen and pelvis.CT of the abdomen and pelvis was positive for probable clot adjacent to the right side of the vaginal cuff displacing the vaginal cuff with small collection of fluid and soft tissue mass concerning for active bleeding. Labs are performed and found to be unremarkable. Her initial blood pressure was 98/60. These results were given to me by Marisol Young. Patient was evaluated personally by myself at the bedside. Patient seemed to be in acute distress secondary to abdominal pain. Pelvic exam was performed by myself. There was no active bleeding. There is approximately 10 mL of blood clot that was present in the vaginal vault. Patient did have tenderness with bimanual examination. Discussed patient case with Dr. Mcguire who is occupational medicine specialist for Dr. Spence. Patient physical exam, presentation, lab results and CT imaging studies were discussed in detail with Dr. Mcguire. Dr. Mcguire states that her CT findings can be considered normal after a hysterectomy. Dr. Mcguire recommended that patient is not a surgical candidate and does not recommend inpatient admission or observation and that she can safely be discharged with by mouth medications and to follow-up with Dr. Spence on Monday of next week. (Daniel Camargo) Patient continued to have persistent pain states she was uncomfortable going home. We recontacted Dr. Mcguire, who is agreeable to admission with serial abdominal exams and CBC's. IVF initiated as well as when necessary antiemetics and analgesics. Patient is agreeable and prefers admission transfer to the o bservation unit in stable condition. (Chinyere Young) - Lab Data Lab Results 06/08/19 06/08/19 06/08/19 Range/Units 11:15 11:15 11:15 WBC 4.7 (3.8-10.6) k/uL RBC 4.01 (3.80-5.40) m/uL Hgb 12.3 (11.4-16.0) gm/dL Hct 37.0 (34.0-46.0) % MCV 92.2 (80.0-100.0) fL MCH 30.7 (25.0-35.0) pg MCHC 33.3 (31.0-37.0) g/dL RDW 12.7 (11.5-15.5) % Plt Count 162 (150-450) k/uL Neutrophils % 56 % Lymphocytes % 31 % Monocytes % 5 % Eosinophils % 5 % Basophils % 0 % Neutrophils # 2.6 (1.3-7.7) k/uL Lymphocytes # 1.4 (1.0-4.8) k/uL Monocytes # 0.2 (0-1.0) k/uL Eosinophils # 0.2 (0-0.7) k/uL Basophils # 0.0 (0-0.2) k/uL Sodium 138 (137-145) mmol/L Potassium 4.1 (3.5-5.1) mmol/L Chloride 104 (98-107) mmol/L Carbon Dioxide 25 (22-30) mmol/L Anion Gap 9 mmol/L BUN 11 (7-17) mg/dL Creatinine 0.89 (0.52-1.04) mg/dL Est GFR (CKD-EPI)AfAm >90 (>60 ml/min/1.73 sqM) Est GFR (CKD-EPI)NonAf 83 (>60 ml/min/1.73 sqM) Glucose 95 (74-99) mg/dL Calcium 9.6 (8.4-10.2) mg/dL Total Bilirubin 0.7 (0.2-1.3) mg/dL AST 21 (14-36) U/L ALT 11 (4-34) U/L Alkaline Phosphatase 89 (38-126) U/L Total Protein 7.4 (6.3-8.2) g/dL Albumin 4.5 (3.5-5.0) g/dL Blood Type A Positive Blood Type Recheck A Pos Bld Type Recheck Status No Antibody Screen NEGATIVE Spec Expiration Date 06/11/2019 - 2314 Disposition <Daniel Camargo - Last Filed: 06/08/19 12:35> Is patient prescribed a controlled substance at d/c from ED?: No Time of Disposition: 12:48 Decision to Admit Reason: Admit from EC Decision Date: 06/08/19 Decision Time: 13:14 <Chinyere Young - Last Filed: 06/08/19 15:08> Clinical Impression: Postoperative vaginal bleeding, Pelvic pain Disposition: ADMITTED IP TO THIS HOSP Condition: Stable
[2019-06-08 11:39] LABS: ALT 11 U/L (4-34); AST 21 U/L (14-36); African American GFR (CKD) >90 (>60 ml/min/1.73 sqM); Albumin 4.5 g/dL (3.5-5.0); Alkaline Phosphatase 89 U/L (38-126); Anion Gap 9 mmol/L; Blood Urea Nitrogen 11 mg/dL (7-17); Calcium 9.6 mg/dL (8.4-10.2); Carbon Dioxide 25 mmol/L (22-30); Chloride 104 mmol/L (98-107); Glucose 95 mg/dL (74-99); Non-African American GFR(CKD) 83 (>60 ml/min/1.73 sqM); Potassium 4.1 mmol/L (3.5-5.1); Sodium 138 mmol/L (137-145); Total Bilirubin 0.7 mg/dL (0.2-1.3); Total Protein 7.4 g/dL (6.3-8.2)
[2019-06-08 11:41] LABS: Basophils % (A) 0 %; Eosinophils # (A) 0.2 k/uL (0-0.7); Eosinophils % (A) 5 %; HGB 12.3 gm/dL (11.4-16.0); Lymphocytes # (A) 1.4 k/uL (1.0-4.8); Lymphocytes % (A) 31 %; MCH 30.7 pg (25.0-35.0); MCHC 33.3 g/dL (31.0-37.0); MCV 92.2 fL (80.0-100.0); Mean Platelet Volume 8.2; Monocytes # (A) 0.2 k/uL (0-1.0); Monocytes % (A) 5 %; Neutrophils # (A) 2.6 k/uL (1.3-7.7); Neutrophils % (A) 56 %; Platelet Count 162 k/uL (150-450); RBC 4.01 m/uL (3.80-5.40); RDW 12.7 % (11.5-15.5); WBC 4.7 k/uL (3.8-10.6)
--- NOTE | 2019-06-08 12:04 | CT ---
EXAMINATION TYPE: CT abdomen pelvis w con DATE OF EXAM: 06/08/2019 REFERENCE: Previous study dated 04/16/2018. HISTORY: postop persistent bleeding pain,hysterectomy(05/09) HISTORY: vaginal bleeding with clots since hysterectomy 05/09/2019 CT DLP: 658.4 mGy Automated exposure control for dose reduction was used. TECHNIQUE: Helical acquisition through the abdomen and pelvis was obtained following the oral ingesti on of without Oral Contrast and following intravenous administration of 100 mL of Isovue 300. The joe a was reformatted in axial, coronal and sagittal projections. FINDINGS: Visualized portions of the lungs are clear. There is no pleural or pericardial fluid. The heart is not enlarged. Within the abdomen, the gallbladder is been removed. Liver and spleen are normal. Both adrenal glands are normal. Both kidneys demonstrate function and appear morphologically normal The pancreas is unremarkable. There is no significant retroperitoneal, iliac or inguinal adenopathy. At the level of the vaginal cuff on the right there is a 3.5 x 2.5 cm heterogenous soft tissue mass w hich measures represent hematoma which is displacing the vaginal cuff towards the left. There is a sm all amount of free fluid within the pelvis and there is a small hemangioma carotid present. This is s uggestive of active bleeding. In the immediate vicinity there are unopacified loops of small bowel. The appendix is unremarkable. No free air is seen. No acute osseous lesion is seen. IMPRESSION: 1. PROBABLE CLOT ADJACENT TO THE RIGHT SIDE OF THE VAGINAL CUFF DISPLACING THE VAGINAL CUFF TOWARDS T HE LEFT. 2. SMALL COLLECTION OF FLUID WITH HEMATOCRIT ADJACENT TO THE ABOVE MENTIONED SOFT TISSUE MASS SUGGEST S ACTIVE BLEEDING.
[2019-06-08] MEDS ORDERED: MORPHINE SULFATE 4 MG/ML SYRINGE IVP STA (12:20)
[2019-06-08] MEDS ORDERED: SODIUM CHLORIDE 0.9% 500 ML 500 ML IV ONE (12:21)
[2019-06-08] MEDS ORDERED: HYDROmorphone 0.5 MG/0.5 ML SYRINGE IVP STA (12:42)
[2019-06-08] MEDS ORDERED: HYDROmorphone 0.5 MG/0.5 ML SYRINGE IVP PRN (13:12)
[2019-06-08] MEDS ORDERED: NALOXONE 0.4 MG/ML 1 ML VIAL IV PRN (13:13)
[2019-06-08] MEDS ORDERED: ONDANSETRON 4 MG/2 ML VIAL IVP STA (14:16)
[2019-06-08] MEDS ORDERED: ONDANSETRON 4 MG/2 ML VIAL IVP PRN (15:06)
[2019-06-08] MEDS ORDERED: KETOROLAC 30 MG/ML 1 ML VIAL IVP PRN (15:41)
[2019-06-08] MEDS ORDERED: HYDROcodone/APAP 7.5-325MG 1 EACH TAB PO PRN (15:42)
[2019-06-08] MEDS ORDERED: ALBUTEROL NEBULIZED 2.5 MG/3 ML INHALATION PRN (17:47)
[2019-06-08] MEDS: LURASIDONE 40 MG TAB PO SCH (19:17)
[2019-06-08 20:07] LABS: Basophils % (A) 1 %; Eosinophils # (A) 0.2 k/uL (0-0.7); Eosinophils % (A) 5 %; HCT 32.7 % (34.0-46.0); HGB 10.8 gm/dL (11.4-16.0); Lymphocytes # (A) 1.7 k/uL (1.0-4.8); Lymphocytes % (A) 36 %; MCH 30.4 pg (25.0-35.0); MCV 92.1 fL (80.0-100.0); Mean Platelet Volume 8.8; Monocytes # (A) 0.2 k/uL (0-1.0); Monocytes % (A) 5 %; Neutrophils # (A) 2.4 k/uL (1.3-7.7); Neutrophils % (A) 51 %; Platelet Count 145 k/uL (150-450); RBC 3.55 m/uL (3.80-5.40); RDW 12.8 % (11.5-15.5); WBC 4.7 k/uL (3.8-10.6)
[2019-06-08] MEDS ORDERED: PRAZOSIN 1 MG CAP PO SCH (21:00)
[2019-06-09 02:04] LABS: Basophils # (A) 0.1 k/uL (0-0.2); Basophils % (A) 2 %; Eosinophils # (A) 0.2 k/uL (0-0.7); Eosinophils % (A) 6 %; HCT 32.2 % (34.0-46.0); HGB 10.5 gm/dL (11.4-16.0); Lymphocytes # (A) 1.6 k/uL (1.0-4.8); Lymphocytes % (A) 41 %; MCH 30.3 pg (25.0-35.0); MCHC 32.6 g/dL (31.0-37.0); MCV 92.9 fL (80.0-100.0); Monocytes # (A) 0.2 k/uL (0-1.0); Monocytes % (A) 5 %; Neutrophils # (A) 1.7 k/uL (1.3-7.7); Neutrophils % (A) 44 %; Platelet Count 123 k/uL (150-450); RBC 3.46 m/uL (3.80-5.40); RDW 12.9 % (11.5-15.5); WBC 3.9 k/uL (3.8-10.6)
[2019-06-09 08:00] LABS: HGB 10.5 gm/dL (11.4-16.0); MCH 30.6 pg (25.0-35.0); MCHC 32.8 g/dL (31.0-37.0); MCV 93.4 fL (80.0-100.0); Mean Platelet Volume 7.8; Platelet Count 117 k/uL (150-450); RBC 3.42 m/uL (3.80-5.40); WBC 4.1 k/uL (3.8-10.6)
[2019-06-09 08:05] VITALS: BP 98/57; PULSE 98; RESP 16; TEMP 97.9
[2019-06-09] MEDS: LURASIDONE 40 MG TAB PO SCH (08:58)
[2019-06-09] MEDS ORDERED: LORATADINE 10 MG TAB PO SCH (09:00)
[2019-06-09] MEDS ORDERED: SERTRALINE 100 MG TAB PO SCH (09:00)
--- NOTE | 2019-06-09 10:22 | P.HPOB ---
History of Present Illness H&P Date: 06/09/19 Chief Complaint: Bleeding and pain This is a 38-year-old female 5 para 2 who underwent a total laparoscopic hysterectomy by Dr. Spence on 05/09/2019, who presented to the emergency room last night with complaints of continued bleeding since her surgery that had increased and more pain. She states she has had period-like flow for at least the last couple weeks and cramping on and off. On the day she came into the hospital she was having significantly more pain and cramping. She stated her pain was more in the left lower quadrant. She states she was passing blood clots and bleeding bright red when she arrived to the ER, however when questioning she stated that it was no heavier than a period and it was the same as when she saw Dr. Spence for her postoperative appointment on 06/03/2019. The patient denies any intercourse since her surgery. Computed tomography scan showed a soft tissue mass with question all hematoma measuring 3.5 x 2.5 cm in the right vagina displacing the vaginal cuff towards the left. There was a question of adjacent free fluid that the radiologist stated could be active bleeding. The patient was then admitted for observation with serial hemoglobin and pain control. She was given Dilaudid in the emergency room along with Z ofran. This morning, the patient does state her pain is much better and she has not taken anything for pain since last night. The only thing she was given besides in the ER was 1 dose of Toradol. Her serial hemoglobins are stable at approximately 10.5. This is the same as she was on postoperative day #1 from her surgery. Of note her platelet count did steadily decline from 145 down to 117. However her platelet count on 05/10/2019 right after surgery was 125,000. The patient is requesting to go home today because she feels fine. Obstetrical history: . History of 2 vaginal deliveries. History of 3 miscarriages. Social history: She is . She is on disability. Review of Systems Constitutional: Denies chills, Denies fever Cardiovascular: Denies chest pain, Denies shortness of breath Respiratory: Denies cough Gastrointestinal: Reports abdominal pain Genitourinary: Reports abnormal vaginal bleeding, Reports pelvic pain Menstruation: Reports post hysterectomy Musculoskeletal: Denies myalgias Psychiatric: Reports anxiety, Reports depression, Reports difficulty concentrating Past Medical History Past Medical History: Asthma, GERD/Reflux, Seizure Disorder Additional Past Medical History / Comment(s): states seizure August 2015. Obstetric history: She has had 2 vaginal deliveries, 1 elective termination, 2 miscarriages History of Any Multi-Drug Resistant Organisms: None Reported Past Surgical History: Cholecystectomy, Hysterectomy (Total laparoscopic hysterectomy on 05/09/2019) Additional Past Surgical History / Comment(s): EGD Past Anesthesia/Blood Transfusion Reactions: Motion Sickness, Postoperative Nausea & Vomiting (PONV) Past Psychological History: ADD/ADHD, Depression, PTSD, Schizophrenia Additional Psychological History / Comment(s): Borderline personality disorder Smoking Status: Former smoker Past Alcohol Use History: None Reported Additional Past Alcohol Use History / Comment(s): SMOKED 5-6 YRS A TEENAGER. Past Drug Use History: None Reported - Past Family History Mother Family Medical History: Cancer, Diabetes Mellitus, Hypertension Additional Family Medical History / Comment(s): STOMACH AND PANCREATIC CANCER Medications and Allergies Home Medications Medication Instructions Recorded Confirmed Type Albuterol Nebulized [Ventolin 2.5 mg INHALATION RT-QID PRN 06/08/19 06/08/19 History Nebulized] Loratadine [Claritin] 10 mg PO DAILY 06/08/19 06/08/19 History Lurasidone [Latuda] 40 mg PO AC-SUPPER 06/08/19 06/08/19 History Prazosin [Minipress] 1 mg PO HS 06/08/19 06/08/19 History Sertraline [Zoloft] 200 mg PO DAILY 06/08/19 06/08/19 History Allergies Allergy/AdvReac Type Severity Reaction Status Date / Time amoxicillin Allergy Anaphylaxis Verified 06/08/19 10:56 codeine Allergy Unknown Verified 06/08/19 10:56 Penicillins Allergy Anaphylaxis Verified 06/08/19 10:56 morphine AdvReac Nausea & Verified 06/08/19 10:56 Vomiting RED & GREEN PEPPER Allergy Anaphylaxis Uncoded 06/08/19 10:56 Exam Osteopathic Statement: *. No significant issues noted on an osteopathic structural exam other than those noted in the History and Physical/Consult. Vital Signs Temp Pulse Pulse Resp BP BP Pulse Ox 06/09/19 08:00 97.9 F 98 16 98/57 97 06/09/19 03:31 66 18 85/46 97 06/09/19 00:00 67 20 105/64 96 06/08/19 15:45 98.6 F 63 20 120/73 97 06/08/19 14:39 98.6 F 63 20 120/73 96 06/08/19 14:30 60 9 L 109/72 97 06/08/19 14:00 60 10 L 122/78 06/08/19 13:30 64 15 105/55 99 06/08/19 13:00 68 14 103/82 100 06/08/19 12:30 62 16 117/70 100 06/08/19 12:23 61 16 117/70 100 06/08/19 10:51 97 F L 80 18 98/60 97 Intake and Output 06/08/19 06/09/19 06/09/19 22:59 06:59 14:59 Other: # Voids 1 Gen.: Well-developed well-nourished female in no acute distress HEENT: Within normal limits Heart: Regular rate and rhythm Lungs: Clear to auscultation bilaterally Abdomen: Soft, nondistended, mild tenderness in the lower abdomen, no guarding or rebound Pelvic exam: Vaginal cuff is palpated intact. Mild tenderness along the lower suprapubic area. With withdrawing the glove, a scant amount of dark clot was noted on the glove. Leyla-pad shows scant brown streaks of discharge. Extremities: Negative Homans Results Result Diagrams: 06/09/19 07:41 06/08/19 11:15 Abnormal Lab Results - Last 24 Hours (Table) 06/08/19 06/09/19 06/09/19 Range/Units 19:59 01:52 07:41 RBC 3.55 L 3.46 L 3.42 L (3.80-5.40) m/uL Hgb 10.8 L 10.5 L 10.5 L (11.4-16.0) gm/dL Hct 32.7 L 32.2 L 32.0 L (34.0-46.0) % Plt Count 145 L 123 L 117 L (150-450) k/uL Assessment and Plan (1) Pelvic pain Current Visit: Yes Status: Acute Code(s): R10.2 - PELVIC AND PERINEAL PAIN SNOMED Code(s): 62617543 (2) Postoperative vaginal bleeding Current Visit: Yes Status: Acute Code(s): BIV6992 - SNOMED Code(s): 127428397 Plan: Plan is admission for observation, pain control, and serial H&H. The patient's pain has been under control through the night. She is anxious to go home. Her bleeding has been minimal and her hemoglobin has been stable. Will discharge home today. She has an appointment to follow up with Dr. Spence on 06/17/2019. She is advised to call the office to see Dr. Spence sooner or go to the emergency room if she develops heavy bright red bleeding, lightheaded or dizziness, or increased pain. She was advised that she does have a hematoma in her pelvic region that does need to dissolve and therefore she will continue to have some vaginal bleeding that should not be heavier than a period.
--- NOTE | 2019-06-09 10:26 | P.DS ---
Providers Date of admission: 06/08/19 13:56 Expected date of discharge: 06/09/19 Attending physician: Lotus Mcguire Primary care physician: Beth Bang - Discharge Diagnosis(es) (1) Pelvic pain Current Visit: Yes Status: Acute (2) Postoperative vaginal bleeding Current Visit: Yes Status: Acute Hospital Course: This is a 38-year-old female status post total laparoscopic hysterectomy by Dr. Spence on 05/09/2019 who presented to the emergency room with complaints of increasing pain and persistent vaginal bleeding. Computed tomography scan showed a question will hematoma measuring 3.5 x 2.5 cm with some free fluid in the radiologist's question active bleeding. She was observed overnight and given some pain medication in the ER but only required 1 dose of Toradol on the floor. This morning she complains of no pain and states she is 100% better. She is still having some light brown discharge on her is[place]-pad but no heavy bleeding. Vital signs have been stable. Abdomen is soft with minimal tenderness in the lower abdomen. Pelvic exam shows scant dark red blood clot on glove with exam with mild tenderness in the lower abdomen. Impression is status post total laparoscopic hysterectomy postoperative 3 weeks, vaginal cuff hematoma. Hemoglobin has been stable. Plan is to discharge home today. The patient will follow-up with Dr. Spence as scheduled on 06/17/2019. She is advised to call the office or return to the emergency room if she starts having heavy bright red vaginal bleeding, severe pain, or dizziness or lightheadedness. Of note the patient did have some mild thrombocytopenia that is asymptomatic. This can be followed outpatient. Patient Condition at Discharge: Stable Plan - Discharge Summary Discharge Rx Participant: Yes New Discharge Prescriptions: No Action Sertraline [Zoloft] 200 mg PO DAILY Prazosin [Minipress] 1 mg PO HS Lurasidone [Latuda] 40 mg PO AC-SUPPER Loratadine [Claritin] 10 mg PO DAILY Albuterol Nebulized [Ventolin Nebulized] 2.5 mg INHALATION RT-QID PRN PRN Reason: Shortness Of Breath Discharge Medication List Albuterol Nebulized [Ventolin Nebulized] 2.5 mg INHALATION RT-QID PRN 06/08/19 [History] Loratadine [Claritin] 10 mg PO DAILY 06/08/19 [History] Lurasidone [Latuda] 40 mg PO AC-SUPPER 06/08/19 [History] Prazosin [Minipress] 1 mg PO HS 06/08/19 [History] Sertraline [Zoloft] 200 mg PO DAILY 06/08/19 [History] Follow up Appointment(s)/Referral(s): Beth Bang DO [Primary Care Provider] - 1-2 days Cyn Spence DO [Doctor of Osteopathic Medicine] - 06/17/19 Activity/Diet/Wound Care/Special Instructions: Activity as tolerated. No intercourse. Return to the emergency room or call the office if you experience increased bright red bleeding, severe pain, or dizziness or lightheadedness.
== END 2019-06-09 10:45 | disposition home or self-care (01) ==
LOC: EC 10:30 → 4FBP 13:56
PROVIDERS: ADMIT Obstetrics & Gynecology; ATTEND Obstetrics & Gynecology
DX: N93.9 Abnormal uterine and vaginal bleeding, unspecified (principal); R10.2 Pelvic and perineal pain; J45.909 Unspecified asthma, uncomplicated; K21.9 Gastro-esophageal reflux disease without esophagitis; G40.909 Epilepsy, unspecified, not intractable, without status epilepticus; Z87.891 Personal history of nicotine dependence; F90.9 Attention-deficit hyperactivity disorder, unspecified type; F32.9 Major depressive disorder, single episode, unspecified; F43.10 Post-traumatic stress disorder, unspecified; F20.9 Schizophrenia, unspecified; Z90.49 Acquired absence of other specified parts of digestive tract; Z90.710 Acquired absence of both cervix and uterus; Z79.899 Other long term (current) drug therapy; Z88.0 Allergy status to penicillin; Z88.5 Allergy status to narcotic agent; Z83.3 Family history of diabetes mellitus; Z82.49 Family history of ischemic heart disease and other diseases of the circulatory system; Z80.0 Family history of malignant neoplasm of digestive organs
CPT/HCPCS: 96375 ×2; 96361; 96374; 99285; 36415; 86900; 86901; 80053; 85025 ×2; 85027; 86850; 74177; G0378 ×2; J2405; J1885; J1170; Q9967

== ENCOUNTER → 2019-11-14 | Outpatient (CLI) | payer OTHER ==
--- NOTE | 2019-11-14 19:22 | CT ---
EXAMINATION TYPE: CT abdomen pelvis w con DATE OF EXAM: 11/14/2019 COMPARISON: 06/08/2019 HISTORY: Abdominal/pelvic pain and bloody stool. CT DLP: 471 mGycm Automated exposure control for dose reduction was used. TECHNIQUE: Helical acquisition of images was performed from the lung bases through the pelvis. CONTRAST: Performed with Oral Contrast and with IV Contrast, patient injected with 100ml mL of Isovue 300. FINDINGS: LUNG BASES: No significant abnormality is appreciated. LIVER/GB: No significant abnormality is appreciated. PANCREAS: No significant abnormality is seen. SPLEEN: No significant abnormality is seen. ADRENALS: No significant abnormality is seen. KIDNEYS: No significant abnormality is seen. FREE AIR: No free air is visualized. RETROPERITONEAL ADENOPATHY: None visualized REPRODUCTIVE ORGANS: No significant abnormality is seen URINARY BLADDER: No significant abnormality is seen. PELVIC ADENOPATHY: None visualized. OSSEOUS STRUCTURES: No significant abnormality is seen. BOWEL: No significant abnormality is seen. OTHER: No acute vascular findings. IMPRESSION: NO ACUTE PROCESS.
== END | disposition home or self-care (01) ==
LOC: RADCTMAIN 16:26
PROVIDERS: ATTEND Family Medicine
DX: K92.1 Melena (principal); R10.9 Unspecified abdominal pain; Z88.0 Allergy status to penicillin
CPT/HCPCS: 74177; Q9967

== ENCOUNTER 2020-04-26 18:02 | Emergency (ER) | payer OTHER ==
[2020-04-26 18:08] VITALS: RESP 18
--- NOTE | 2020-04-26 18:28 | ED ---
General Adult HPI - General Chief complaint: Extremity Problem,Nontraumatic Stated complaint: bilat leg swelling/numbness Time Seen by Provider: 04/26/20 18:14 Source: family Mode of arrival: wheelchair Limitations: no limitations - History of Present Illness Initial comments: Dictation was produced using [employer] dictation software. please excuse any grammatical, word or spelling errors. This patient was cared for during a federal and state declared state of emergency secondary to Covid 19 Chief Complaint: 39-year-old cathy presents today for possible bilateral lower extremity DVT. History of Present Illness: 39-year-old female she states that she has strong family history of DVTs and PEs. Patient states she's had blood clots in the past that she reports were found in her abdomen. Patient denies any blood clots in her lungs or her leg. Patient has a chest pain shortness of breath. She states that she does have some TENDERNESS tingling. She mother mother told to come to the emergency room for evaluation of possible lower DVTs. No recent travel. She has history of hysterectomy. Does not take any hormone pills or oral contraceptives. The ROS documented in this emergency department record has been reviewed and confirmed by me. Those systems with pertinent positive or negative responses have been documented in the HPI. All other systems are other negative and/or noncontributory. PHYSICAL EXAM: General Impression: Alert and oriented x3, not in acute distress HEENT: Normocephalic atraumatic, extra-ocular movements intact, pupils equal and reactive to light bilaterally, mucous membranes moist. Cardiovascular: Heart regular rate and rhythm Chest: Able to complete full sentences, no retractions, no tachypnea Abdomen: abdomen soft, non-tender, non-distended, no organomegaly Musculoskeletal: Pulses present and equal in all extremities, no peripheral edema Motor: no focal deficits noted Neurological: CN II-XII grossly intact, no focal motor or sensory deficits noted Skin: Intact with no visualized rashes Psych: Normal affect and mood ED course: 39-year-old cathy presents with concerns of possible bilateral lower extremity DVTs. Vital signs upon arrival are within acceptable limits. Venous Doppler study does not show any DVTs in either legs. Labs unremarkable. Patient given emergency department for 2 hours stable medical condition. Patient advised follow-up with her PCP. - Related Data Home Medications Medication Instructions Recorded Confirmed Albuterol Nebulized [Ventolin 2.5 mg INHALATION RT-QID PRN 06/08/19 06/08/19 Nebulized] Loratadine [Claritin] 10 mg PO DAILY 06/08/19 06/08/19 Lurasidone [Latuda] 40 mg PO AC-SUPPER 06/08/19 06/08/19 Prazosin [Minipress] 1 mg PO HS 06/08/19 06/08/19 Sertraline [Zoloft] 200 mg PO DAILY 06/08/19 06/08/19 Allergies Allergy/AdvReac Type Severity Reaction Status Date / Time amoxicillin Allergy Anaphylaxis Verified 04/26/20 18:07 codeine Allergy Unknown Verified 04/26/20 18:07 Penicillins Allergy Anaphylaxis Verified 04/26/20 18:07 morphine AdvReac Nausea & Verified 04/26/20 18:07 Vomiting RED & GREEN PEPPER Allergy Anaphylaxis Uncoded 06/08/19 10:56 Review of Systems ROS Statement: Those systems with pertinent positive or pertinent negative responses have been documented in the HPI. ROS Other: All systems not noted in ROS Statement are negative. Past Medical History Past Medical History: Asthma, GERD/Reflux, Seizure Disorder Additional Past Medical History / Comment(s): states seizure August 2015. Obstetric history: She has had 2 vaginal deliveries, 1 elective termination, 2 miscarriages History of Any Multi-Drug Resistant Organisms: None Reported Past Surgical History: Cholecystectomy, Hysterectomy Additional Past Surgical History / Comment(s): EGD Past Anesthesia/Blood Transfusion Reactions: Motion Sickness, Postoperative Nausea & Vomiting (PONV) Past Psychological History: ADD/ADHD, Anxiety, Depression, PTSD, Schizophrenia Smoking Status: Former smoker Past Alcohol Use History: None Reported Past Drug Use History: None Reported - Past Family History Mother Family Medical History: Cancer, Diabetes Mellitus, Hypertension Additional Family Medical History / Comment(s): STOMACH AND PANCREATIC CANCER General Exam Limitations: no limitations Course Vital Signs 04/26/20 18:05 Temperature 98.4 F Pulse Rate 77 Respiratory 18 Rate Blood Pressure 136/68 O2 Sat by Pulse 99 Oximetry Medical Decision Making - Lab Data Result diagrams: 04/26/20 19:29 04/26/20 19:29 Lab Results 04/26/20 04/26/20 Range/Units 19:29 19:29 WBC 5.6 (3.8-10.6) k/uL RBC 3.87 (3.80-5.40) m/uL Hgb 12.3 (11.4-16.0) gm/dL Hct 35.6 (34.0-46.0) % MCV 92.0 (80.0-100.0) fL MCH 31.8 (25.0-35.0) pg MCHC 34.6 (31.0-37.0) g/dL RDW 13.0 (11.5-15.5) % Plt Count 162 (150-450) k/uL MPV 7.0 Neutrophils % 55 % Lymphocytes % 34 % Monocytes % 6 % Eosinophils % 3 % Basophils % 1 % Neutrophils # 3.1 (1.3-7.7) k/uL Lymphocytes # 1.9 (1.0-4.8) k/uL Monocytes # 0.3 (0-1.0) k/uL Eosinophils # 0.1 (0-0.7) k/uL Basophils # 0.1 (0-0.2) k/uL Sodium 137 (137-145) mmol/L Potassium 4.3 (3.5-5.1) mmol/L Chloride 107 (98-107) mmol/L Carbon Dioxide 23 (22-30) mmol/L Anion Gap 7 mmol/L BUN 17 (7-17) mg/dL Creatinine 1.01 (0.52-1.04) mg/dL Est GFR (CKD-EPI)AfAm 81 (>60 ml/min/1.73 sqM) Est GFR (CKD-EPI)NonAf 70 (>60 ml/min/1.73 sqM) Glucose 86 (74-99) mg/dL Calcium 9.3 (8.4-10.2) mg/dL Total Bilirubin 0.5 (0.2-1.3) mg/dL AST 26 (14-36) U/L ALT 14 (4-34) U/L Alkaline Phosphatase 79 (38-126) U/L Total Protein 7.6 (6.3-8.2) g/dL Albumin 4.5 (3.5-5.0) g/dL Lipase 128 (23-300) U/L Disposition Clinical Impression: Bilateral calf pain Disposition: HOME SELF-CARE Condition: Good Instructions (If sedation given, give patient instructions): Deep Vein Thrombosis (ED) Is patient prescribed a controlled substance at d/c from ED?: No Referrals: Beth Bang DO [Primary Care Provider] - 1-2 days Time of Disposition: 20:12
--- NOTE | 2020-04-26 19:16 | US ---
EXAMINATION TYPE: US venous doppler duplex LE BI DATE OF EXAM: 04/26/2020 6:27 PM COMPARISON: NONE CLINICAL HISTORY: rule out dvt. swelling per patient SIDE PERFORMED: Bilateral TECHNIQUE: The lower extremity deep venous system is examined utilizing real time linear array sonog buffy with graded compression, doppler sonography and color-flow sonography. VESSELS IMAGED: Common Femoral Vein Deep Femoral Vein Greater Saphenous Vein * Femoral Vein Popliteal Vein Small Saphenous Vein * Proximal Calf Veins (* superficial vessels) Right Leg: Negative for DVT Left Leg: Negative for DVT IMPRESSION: No evidence of deep vein thrombosis in both legs.
[2020-04-26 19:40] LABS: Basophils # (A) 0.1 k/uL (0-0.2); Basophils % (A) 1 %; Eosinophils # (A) 0.1 k/uL (0-0.7); Eosinophils % (A) 3 %; HCT 35.6 % (34.0-46.0); HGB 12.3 gm/dL (11.4-16.0); Lymphocytes # (A) 1.9 k/uL (1.0-4.8); Lymphocytes % (A) 34 %; MCH 31.8 pg (25.0-35.0); MCHC 34.6 g/dL (31.0-37.0); Monocytes # (A) 0.3 k/uL (0-1.0); Monocytes % (A) 6 %; Neutrophils # (A) 3.1 k/uL (1.3-7.7); Neutrophils % (A) 55 %; Platelet Count 162 k/uL (150-450); RBC 3.87 m/uL (3.80-5.40); WBC 5.6 k/uL (3.8-10.6)
[2020-04-26 19:50] LABS: Albumin 4.5 g/dL (3.5-5.0); Calcium 9.3 mg/dL (8.4-10.2); Potassium 4.3 mmol/L (3.5-5.1); Total Bilirubin 0.5 mg/dL (0.2-1.3); Total Protein 7.6 g/dL (6.3-8.2)
[2020-04-26 20:20] VITALS: BP 113/82; PULSE 66; TEMP 98.1
[2020-04-26 20:59] LABS: Partial Thromboplastin Time 27.4 sec (22.0-30.0)
== END 2020-04-26 20:25 | disposition home or self-care (01) ==
LOC: EC 18:02
DX: M79.661 Pain in right lower leg (principal); M79.662 Pain in left lower leg; J45.909 Unspecified asthma, uncomplicated; R20.2 Paresthesia of skin; G40.909 Epilepsy, unspecified, not intractable, without status epilepticus; F41.9 Anxiety disorder, unspecified; F32.9 Major depressive disorder, single episode, unspecified; F43.10 Post-traumatic stress disorder, unspecified; F20.9 Schizophrenia, unspecified; Z79.899 Other long term (current) drug therapy; Z88.5 Allergy status to narcotic agent; Z91.018 Allergy to other foods; Z88.0 Allergy status to penicillin; Z87.891 Personal history of nicotine dependence
CPT/HCPCS: 36415; 80053; 83690; 85025; 85610; 85730; 93970; 99284

== ENCOUNTER → 2020-12-21 | Outpatient (CLI) | payer OTHER ==
[2020-12-21 18:45] LABS: Basophils # (A) 0.01 X 10*3/uL (0.00-0.10); Basophils % (A) 0.2 %; Eosinophils # (A) 0.14 X 10*3/uL (0.04-0.35); Eosinophils % (A) 2.8 %; HCT 33.2 % (37.2-46.3); HGB 11.2 g/dL (12.0-15.0); Lymphocytes # (A) 1.28 X 10*3/uL (0.90-5.00); Lymphocytes % (A) 25.4 %; MCH 31.7 pg (27.0-32.0); MCHC 33.7 g/dL (32.0-37.0); MCV 94.1 fL (80.0-97.0); Mean Platelet Volume 10.8 fL (9.5-12.2); Monocytes # (A) 0.39 X 10*3/uL (0.20-1.00); Monocytes % (A) 7.7 %; Neutrophils % (A) 63.5 %; Platelet Count 166 X 10*3/uL (140-440); RBC 3.53 X 10*6/uL (4.10-5.20); RDW 12.8 % (11.5-14.5); WBC 5.04 X 10*3/uL (4.50-10.00)
[2020-12-21 21:35] LABS: African American GFR (CKD) 81.6 (60.0-200.0); Albumin 4.6 g/dL (3.80-4.90); Albumin/Globulin Ratio 2.3 (1.60-3.17); Anion Gap 8.1 mmol/L (4.00-12.00); Calcium 9.7 mg/dL (8.7-10.3); Carbon Dioxide 24.9 mmol/L (21.6-31.8); Chol/HDL Ratio 3.36; LDL Cholesterol,Calculated 84.8 mg/dL (0.0-131.0); Lithium 0.1 mmol/L (0.5-1.2); Non-African American GFR(CKD) 70.4 (60.0-200.0); Total Bilirubin 0.3 mg/dL (0.3-1.2); Total Protein 6.6 g/dL (6.2-8.2); VLDL Calculation 21.2 mg/dL (5.00-40.00)
[2020-12-21 22:04] LABS: T4, Free (Free Thyroxine) 0.8 ng/dL (0.80-1.80)
[2020-12-22 01:05] LABS: Folate, Serum 4.8 ng/mL
== END | disposition home or self-care (01) ==
LOC: LABWHC1 12:16
PROVIDERS: ATTEND Nurse Practitioner Psychiatric/Mental Health
DX: F41.1 Generalized anxiety disorder (principal); Z79.899 Other long term (current) drug therapy
CPT/HCPCS: 36415; 80053; 80061; 80178; 82306; 82607; 82746; 83036; 84439; 84443; 85025

== ENCOUNTER 2021-11-24 13:01 | Emergency (ER) | payer OTHER ==
[2021-11-24 13:26] VITALS: BP 111/72; PULSE 102; RESP 16; TEMP 98.2
== END 2021-11-24 14:35 | disposition left against medical advice (07) ==
LOC: SUPCPDRO 13:01 → EC 13:01
DX: Z53.9 Procedure and treatment not carried out, unspecified reason (principal)
CPT/HCPCS: 93005; 99499

== ENCOUNTER 2021-12-05 18:58 | Emergency (ER) | payer OTHER ==
--- NOTE | 2021-12-05 19:11 | ED ---
Chest Pain HPI - General Stated Complaint: Chest pain Time Seen by Provider: 12/05/21 19:00 Source: patient, EMS, RN notes reviewed Mode of arrival: EMS - History of Present Illness Initial Comments: 41-year-old female history of asthma who states she's had a cough over the last couple days with yellow phlegm she said she has had midsternal chest pain sharp in nature a gets worse with deep breathing and with palpation. She has no prior history that she knows of cardiac disease.randa chills or sweats no known exposure to COVID-19. Patient states she does have an inhaler home and relatively new. MD Complaint: chest pain - Related Data Home Medications Medication Instructions Recorded Confirmed Albuterol Nebulized [Ventolin 2.5 mg INHALATION RT-QID PRN 06/08/19 09/10/21 Nebulized] Loratadine [Claritin] 10 mg PO DAILY 06/08/19 09/10/21 Lurasidone [Latuda] 40 mg PO AC-SUPPER 06/08/19 09/10/21 Prazosin [Minipress] 1 mg PO HS 06/08/19 09/10/21 Sertraline [Zoloft] 200 mg PO DAILY 06/08/19 09/10/21 Previous Rx's Medication Instructions Recorded Azithromycin [Zithromax Z Pack] 1 tab PO DIRECTED #6 tab 12/05/21 Ibuprofen [Motrin] 600 mg PO Q6HR PRN #20 tab 12/05/21 predniSONE [Deltasone] 20 mg PO BID #10 tab 12/05/21 Allergies Allergy/AdvReac Type Severity Reaction Status Date / Time amoxicillin Allergy Anaphylaxis Verified 12/05/21 19:47 codeine Allergy Unknown Verified 12/05/21 19:47 Penicillins Allergy Anaphylaxis Verified 12/05/21 19:47 morphine AdvReac Nausea & Verified 12/05/21 19:47 Vomiting RED & GREEN PEPPER Allergy Anaphylaxis Uncoded 12/05/21 19:47 Review of Systems ROS Statement: Those systems with pertinent positive or pertinent negative responses have been documented in the HPI. ROS Other: All systems not noted in ROS Statement are negative. EKG Findings - EKG Results: EKG: interpreted by RANDA, sinus rhythm (Sinus rhythm a 93. Interval 135 QRS duration 91 QT since QTC 331/381 evidence of incomplete right bundle-branch block nonspecific T-wave configuration) Past Medical History Past Medical History: Asthma, GERD/Reflux, Seizure Disorder Additional Past Medical History / Comment(s): states seizure August 2015. Obstetric history: She has had 2 vaginal deliveries, 1 elective termination, 2 miscarriages History of Any Multi-Drug Resistant Organisms: None Reported Past Surgical History: Cholecystectomy, Hysterectomy Additional Past Surgical History / Comment(s): EGD Past Anesthesia/Blood Transfusion Reactions: Motion Sickness, Postoperative Nausea & Vomiting (PONV) Past Psychological History: ADD/ADHD, Anxiety, Depression, PTSD, Schizophrenia Smoking Status: Former smoker Past Alcohol Use History: None Reported Past Drug Use History: None Reported - Past Family History Mother Family Medical History: Cancer, Diabetes Mellitus, Hypertension Additional Family Medical History / Comment(s): STOMACH AND PANCREATIC CANCER General Exam - General Exam Comments Initial Comments: This is a well-developed well-nourished awake alert oriented 4 female General appearance: alert, anxious Head exam: Present: atraumatic, normocephalic, normal inspection Eye exam: Present: normal appearance, PERRL, EOMI. Absent: scleral icterus, conjunctival injection, periorbital swelling ENT exam: Present: normal exam, mucous membranes moist Neck exam: Present: normal inspection, full ROM, other. Absent: tenderness, meningismus, lymphadenopathy Respiratory exam: Present: normal lung sounds bilaterally, chest wall tenderness (No stridor JVD or bruits. Reproducible tenderness palpation over the costal c hondral costal sternal junctions. No step-off no crepitation). Absent: respiratory distress, wheezes, rales, rhonchi, stridor Cardiovascular Exam: Present: regular rate, normal rhythm, normal heart sounds. Absent: systolic murmur, diastolic murmur, rubs, gallop, clicks GI/Abdominal exam: Present: soft, normal bowel sounds. Absent: distended, te nderness, guarding, rebound, rigid Extremities exam: Present: normal inspection, full ROM, normal capillary refill. Absent: tenderness, pedal edema, joint swelling, calf tenderness Back exam: Present: normal inspection Neurological exam: Present: alert, oriented X3, CN II-XII intact Psychiatric exam: Present: normal affect, normal mood Skin exam: Present: warm, dry, intact, normal color. Absent: rash Course Vital Signs 08/14/22 08/14/22 19:44 19:47 Temperature 98.2 F Pulse Rate 62 Respiratory 18 Rate Blood Pressure 102/43 O2 Sat by Pulse 97 Oximetry - Reevaluation(s) Reevaluation #1: 12/05/21 19:26 EKG from today compared to one dated 01/11/2018 showing very similar morphology. Chest Pain MDM - MDM Imaging reviewed as well as report no acute processes seen. Patient presentation appears be consistent with asthmatic bronchitis we did a long discussion regarding the findings x-rays are negative for acute processes again lab work essentially within normal limits code test was not done the patient requests that the code has not be done that she be discharged she will be placed on appropriate medication she is a follow-up with her doctor return when necessary the presentation else is consistent with costochondritis secondary to the cough. At this time there appears be no cardiac Disposition Clinical Impression: Asthmatic bronchitis, Chest wall syndrome, Costochondritis Disposition: HOME SELF-CARE Condition: Good Instructions (If sedation given, give patient instructions): Costochondritis (ED), Bronchospasm (ED), Asthma (ED) Prescriptions: predniSONE [Deltasone] 20 mg PO BID #10 tab Ibuprofen [Motrin] 600 mg PO Q6HR PRN #20 tab PRN Reason: Pain Azithromycin [Zithromax Z Pack] 1 tab PO DIRECTED #6 tab Is patient prescribed a controlled substance at d/c from ED?: No Referrals: Beth Bang DO [Primary Care Provider] - 1-2 days Decision Date: 12/05/21 Decision Time: 21:04
[2021-12-05 19:28] LABS: Albumin 4.2 g/dL (3.5-5.0); Basophils % (A) 0 %; Calcium 9.3 mg/dL (8.4-10.2); Eosinophils # (A) 0.1 k/uL (0-0.7); Eosinophils % (A) 2 %; HCT 44.9 % (34.0-46.0); HGB 14.7 gm/dL (11.4-16.0); Lymphocytes # (A) 1.8 k/uL (1.0-4.8); Lymphocytes % (A) 30 %; MCH 31.1 pg (25.0-35.0); MCHC 32.6 g/dL (31.0-37.0); MCV 95.3 fL (80.0-100.0); Magnesium 1.9 mg/dL (1.6-2.3); Mean Platelet Volume 8.3; Monocytes # (A) 0.3 k/uL (0-1.0); Monocytes % (A) 5 %; Neutrophils # (A) 3.7 k/uL (1.3-7.7); Neutrophils % (A) 61 %; Platelet Count 240 k/uL (150-450); RBC 4.71 m/uL (3.80-5.40); RDW 13.1 % (11.5-15.5); WBC 6.1 k/uL (3.8-10.6)
--- NOTE | 2021-12-05 19:28 | XR ---
EXAMINATION TYPE: XR chest 2V DATE OF EXAM: 12/05/2021 7:20 PM COMPARISON: Chest x-ray 01/11/2019 TECHNIQUE: XR chest 2V . CLINICAL INDICATION:Female, 41 years old with history of Chest Pain; FINDINGS: Lungs/Pleura: There is no evidence of pleural effusion, focal consolidation, or pneumothorax. Pulmonary vascularity: Unremarkable. Heart/mediastinum: Cardiomediastinal silhouette is unremarkable. Musculoskeletal: No acute osseous pathology. IMPRESSION: No acute cardiopulmonary disease/process.
[2021-12-05 19:47] VITALS: RESP 18; TEMP 98.2
--- NOTE | 2021-12-05 20:46 | XR ---
EXAMINATION TYPE: XR KUB DATE OF EXAM: 12/05/2021 8:28 PM INDICATION: Patient age:Female; 41 years old; Reason for study: Dyspnea; PHH. COMPARISON: Chest x-ray 12/05/2021, CT abdomen pelvis 04/26/2020 TECHNIQUE: One radiographic view of the abdomen was obtained. FINDINGS: The bowel gas pattern is nonspecific without dilated loops of small or large bowel. There i s no evidence for organomegaly or pneumoperitoneum. The osseous structures are intact. No abnormal calcifications are present. Surgical clips noted in the right upper quadrant. Fecal material and gas are demonstrated throughout the colon and rectum. Phlebolith noted within the right hemipelvis. IMPRESSION: Nonspecific bowel gas pattern without radiographic evidence for acute process.
[2021-12-05] MEDS ORDERED: AZITHROMYCIN 500 MG TAB PO STA (20:58)
[2021-12-05] MEDS ORDERED: IBUPROFEN ORAL SUSP 100 MG/5 ML CUP PO ONE (20:59)
[2021-12-05] MEDS ORDERED: predniSONE 50 MG TAB PO STA (20:59)
[2021-12-05 22:15] VITALS: BP 91/75; PULSE 80
== END 2021-12-05 22:29 | disposition home or self-care (01) ==
LOC: EC 18:58
DX: J45.909 Unspecified asthma, uncomplicated (principal); M94.0 Chondrocostal junction syndrome [Tietze]; K21.9 Gastro-esophageal reflux disease without esophagitis; Z79.83 Long term (current) use of bisphosphonates; Z87.891 Personal history of nicotine dependence; Z88.6 Allergy status to analgesic agent; Z88.0 Allergy status to penicillin; Z88.5 Allergy status to narcotic agent
CPT/HCPCS: 36415; 93005; 83880; 80053; 83690; 83735; 84484; 85025; 71046; 74018; 99285; J7512

== ENCOUNTER 2022-05-02 15:48 | Emergency (ER) | payer OTHER ==
[2022-05-02 16:19] VITALS: PULSE 77; RESP 16; TEMP 97.7
[2022-05-02] MEDS ORDERED: SODIUM CHLORIDE 0.9% 500 ML 500 ML IV STA (17:12)
[2022-05-02] MEDS ORDERED: KETOROLAC 15 MG/ML 1 ML VIAL IVP STA (17:13)
--- NOTE | 2022-05-02 17:15 | ED ---
Abdominal Pain HPI - General Chief Complaint: Abdominal Pain Stated Complaint: poss blood clot Time Seen by Provider: 05/02/22 17:00 Source: patient, family Mode of arrival: ambulatory Limitations: no limitations - History of Present Illness MD Complaint: abdominal pain -: days(s) Location: RLQ Radiation: none Migration to: no migration Severity: severe Quality: aching, sharp Consistency: constant Improves With: nothing Worsens With: nothing Associated Symptoms: other (Vaginal bleeding) - Related Data LMP (females 10-50): other (Hysterectomy) Patient : No Home Medications Medication Instructions Recorded Confirmed Sertraline [Zoloft] 100 mg PO DAILY 06/08/19 05/02/22 Multivitamins, Thera [Multivitamin 1 tab PO DAILY 05/02/22 05/02/22 (formulary)] Previous Rx's Medication Instructions Recorded Sulfamethox-Tmp 800-160Mg [Bactrim 1 each PO Q12HR #6 tab 05/02/22 Ds] Allergies Allergy/AdvReac Type Severity Reaction Status Date / Time amoxicillin Allergy Anaphylaxis Verified 05/02/22 18:10 codeine Allergy Unknown Verified 05/02/22 18:10 Penicillins Allergy Anaphylaxis Verified 05/02/22 18:10 morphine AdvReac Nausea & Verified 05/02/22 18:10 Vomiting RED & GREEN PEPPER AdvReac Anaphylaxis Uncoded 05/02/22 18:10 Review of Systems ROS Statement: Those systems with pertinent positive or pertinent negative responses have been documented in the HPI. ROS Other: All systems not noted in ROS Statement are negative. Constitutional: Denies: fever, chills Respiratory: Denies: cough, dyspnea Cardiovascular: Denies: chest pain, palpitations, edema Gastrointestinal: Reports: abdominal pain. Denies: nausea, vomiting, diarrhea, constipation Genitourinary: Denies: dysuria, hematuria Musculoskeletal: Denies: back pain Skin: Denies: rash Neurological: Denies: headache, weakness Hematological/Lymphatic: Denies: easy bleeding Past Medical History Past Medical History: Asthma, GERD/Reflux, Seizure Disorder Additional Past Medical History / Comment(s): states seizure August 2015. Obstetric history: She has had 2 vaginal deliveries, 1 elective termination, 2 miscarriages History of Any Multi-Drug Resistant Organisms: None Reported Past Surgical History: Cholecystectomy, Hysterectomy Additional Past Surgical History / Comment(s): EGD Past Anesthesia/Blood Transfusion Reactions: Motion Sickness, Postoperative Nausea & Vomiting (PONV) Past Psychological History: ADD/ADHD, Anxiety, Depression, PTSD, Schizophrenia Smoking Status: Former smoker Past Alcohol Use History: None Reported Past Drug Use History: None Reported - Past Family History Mother Family Medical History: Cancer, Diabetes Mellitus, Hypertension Additional Family Medical History / Comment(s): STOMACH AND PANCREATIC CANCER General Exam Limitations: no limitations General appearance: alert, in no apparent distress Head exam: Present: atraumatic, normocephalic Eye exam: Present: normal appearance. Absent: scleral icterus, conjunctival injection Neck exam: Present: normal inspection Respiratory exam: Present: normal lung sounds bilaterally. Absent: respiratory distress, wheezes, rales, rhonchi, stridor Cardiovascular Exam: Present: regular rate, normal rhythm, normal heart sounds. Absent: systolic murmur, diastolic murmur, rubs, gallop GI/Abdominal exam: Present: soft, tenderness. Absent: distended, guarding, rebound, rigid, mass, pulsatile mass, hernia Extremities exam: Present: normal inspection, normal capillary refill. Absent: pedal edema, calf tenderness Back exam: Present: normal inspection. Absent: CVA tenderness (R), CVA tenderness (L) Neurological exam: Present: alert Skin exam: Present: warm, dry, intact, normal color. Absent: rash Course Vital Signs 05/02/22 05/02/22 16:16 19:13 Temperature 97.7 F Pulse Rate 77 77 Respiratory 16 16 Rate Blood Pressure 114/63 115/80 O2 Sat by Pulse 98 96 Oximetry Medical Decision Making - Medical Decision Making Patient is 41-year-old woman here with right lower quadrant abdominal pain. She has also described seeing some of which she believes is vaginal bleeding though she is post hysterectomy. She does have mild tenderness to exam Given the tenderness in the right lower quadrant she did have computed tomography scan that I interpreted as not showing evidence of acute appendicitis. There is urinary tract infection evident in the urinalysis. Related to the possible vaginal bleeding, discussed performing exam here versus patient following with gynecology, she will take the course of antibiotics and follow with the product expert if there is no resolution, she will return here if there is any worsening, including fever or chills, vomiting, passing any blood, increasing pain or if there is no improvement Was pt. sent in by a medical professional or institution? @ -[The patient states she was recommended to be seen by her clinic physician Did you speak to anyone other than the patient for history? @ -[No Did you review nursing and triage notes? @ -[agree Were old charts reviewed? @ -Previous record Differential Diagnosis? @ -[Differential Abdominal Pain Women: Appendicitis, Cholecystitis, diverticulosis, ischemic bowel, pancreatitis, hepatitis, UTI, gastroenteritis, AAA, incarcerated hernia, bowel obstruction, constipation, inflammatory bowel, hepatitis, peptic ulcer disease, splenic infarction, perforated viscus, vulvitis, ovarian torsion, PID, kidney stone, placenta abruption, this is not meant to be an all-inclusive list EKG interpreted by me (3pts min.)? @ -[none] X-rays interpreted by me (1pt min.)? @ -[none] CT interpreted by me (1pt min.)? @ -[none] U/S interpreted by me (1pt. min.)? @ -[none] What testing was considered but not performed? (CT, X-rays, U/S, labs)? Why? @ [None What meds were considered but not given? Why? @ -[none] Did you discuss the management of the patient with other professionals? @ -[None Did you reconcile home meds? @ -[none] Was smoking cessation discussed for >3mins.? @ -[none] Was critical care preformed (if so, how long)? @ -[none] Were there social determinants of health that impacted care today? How? (Homelessness, low income, unemployed, alcoholism, drug addiction, transportation, low edu. Level, literacy, decrease access to med. care, [facility], rehab)? @ -[None Was there de-escalation of care discussed even if they declined? (Discuss DNR or withdrawal of care, Hospice)? @ -[No What co-morbidities impacted this encounter? (DM, HTN, Smoking, COPD, CAD, Ca ncer, CVA, Hep., AIDS, mental health diagnosis, sleep apnea, morbid obesity)? @ -[None Was patient admitted / discharged? @ -[Discharged Undiagnosed new problem with uncertain prognosis? @ -[none] Drug Therapy requiring intensive monitoring for toxicity (Heparin, Nitro, Insulin, Cardizem)? @ -[none] Were any procedures done? @ -[none] Diagnosis/symptom? @ -1. Abdominal pain 2. Urinary tract infection Acute, or Chronic, or Acute on Chronic? @ -[Both acute Uncomplicated (without systemic symptoms) or Complicated (systemic symptoms)? @ -[Both uncomplicated Side effects of treatment? @ -[none] Exacerbation, Progression, or Severe Exacerbation] @ -[no] Poses a threat to life or bodily function? @ -[no] - Lab Data Result diagrams: 05/02/22 17:25 05/02/22 17:25 Lab Results 05/02/22 05/02/22 05/02/22 Range/Units 17:25 17:25 17: WBC 4.5 (3.8-10.6) k/uL RBC 3.76 L (3.80-5.40) m/uL Hgb 12.1 (11.4-16.0) gm/dL Hct 35.0 (34.0-46.0) % MCV 93.1 (80.0-100.0) fL MCH 32.2 (25.0-35.0) pg MCHC 34.6 (31.0-37.0) g/dL RDW 12.5 (11.5-15.5) % Plt Count 152 (150-450) k/uL MPV 8.2 Neutrophils % 54 % Lymphocytes % 34 % Monocytes % 6 % Eosinophils % 3 % Basophils % 0 % Neutrophils # 2.4 (1.3-7.7) k/uL Lymphocytes # 1.5 (1.0-4.8) k/uL Monocytes # 0.3 (0-1.0) k/uL Eosinophils # 0.1 (0-0.7) k/uL Basophils # 0.0 (0-0.2) k/uL Sodium (137-145) mmol/L Potassium (3.5-5.1) mmol/L Chloride (98-107) mmol/L Carbon Dioxide (22-30) mmol/L Anion Gap mmol/L BUN (7-17) mg/dL Creatinine (0.52-1.04) mg/dL Est GFR (CKD-EPI)AfAm (>60 ml/min/1.73 sqM) Est GFR (CKD-EPI)NonAf (>60 ml/min/1.73 sqM) Glucose (74-99) mg/dL Plasma Lactic Acid Alonso (0.7-2.0) mmol/L Calcium (8.4-10.2) mg/dL Total Bilirubin (0.2-1.3) mg/dL AST (14-36) U/L ALT (4-34) U/L Alkaline Phosphatase (38-126) U/L Total Protein (6.3-8.2) g/dL Albumin (3.5-5.0) g/dL Amylase (30-110) U/L Lipase (23-300) U/L Urine Color Yellow Urine Appearance Clear (Clear) Urine pH 6.0 (5.0-8.0) Ur Specific [place] 1.024 (1.001-1.035) Urine Protein Trace H (Negative) Urine Glucose (UA) Negative (Negative) Urine Ketones Negative (Negative) Urine Blood Moderate H (Negative) Urine Nitrite Positive H (Negative) Urine Bilirubin Negative (Negative) Urine Urobilinogen <2.0 (<2.0) mg/dL Ur Leukocyte Esterase Negative (Negative) Urine RBC 7 H (0-5) /hpf Urine WBC 2 (0-5) /hpf Ur Squamous Epith Cells 4 (0-4) /hpf Urine Bacteria Moderate H (None) /hpf Hyaline Casts 3 H (0-2) /lpf Urine Mucus Occasional H (None) /hpf Urine HCG, Qual Not Detected (Not Detectd) 05/02/22 05/02/22 Range/Units 17:25 17:25 WBC (3.8-10.6) k/uL RBC (3.80-5.40) m/uL Hgb (11.4-16.0) gm/dL Hct (34.0-46.0) % MCV (80.0-100.0) fL MCH (25.0-35.0) pg MCHC (31.0-37.0) g/dL RDW (11.5-15.5) % Plt Count (150-450) k/uL MPV Neutrophils % % Lymphocytes % % Monocytes % % Eosinophils % % Basophils % % Neutrophils # (1.3-7.7) k/uL Lymphocytes # (1.0-4.8) k/uL Monocytes # (0-1.0) k/uL Eosinophils # (0-0.7) k/uL Basophils # (0-0.2) k/uL Sodium 138 (137-145) mmol/L Potassium 4.1 (3.5-5.1) mmol/L Chloride 106 (98-107) mmol/L Carbon Dioxide 27 (22-30) mmol/L Anion Gap 5 mmol/L BUN 13 (7-17) mg/dL Creatinine 0.79 (0.52-1.04) mg/dL Est GFR (CKD-EPI)AfAm >90 (>60 ml/min/1.73 sqM) Est GFR (CKD-EPI)NonAf >90 (>60 ml/min/1.73 sqM) Glucose 88 (74-99) mg/dL Plasma Lactic Acid Alonso <0.5 L (0.7-2.0) mmol/L Calcium 9.1 (8.4-10.2) mg/dL Total Bilirubin 0.3 (0.2-1.3) mg/dL AST 17 (14-36) U/L ALT 13 (4-34) U/L Alkaline Phosphatase 76 (38-126) U/L Total Protein 7.1 (6.3-8.2) g/dL Albumin 4.4 (3.5-5.0) g/dL Amylase 74 (30-110) U/L Lipase 118 (23-300) U/L Urine Color Urine Appearance (Clear) Urine pH (5.0-8.0) Ur Specific [place] (1.001-1.035) Urine Protein (Negative) Urine Glucose (UA) (Negative) Urine Ketones (Negative) Urine Blood (Negative) Urine Nitrite (Negative) Urine Bilirubin (Negative) Urine Urobilinogen (<2.0) mg/dL Ur Leukocyte Esterase (Negative) Urine RBC (0-5) /hpf Urine WBC (0-5) /hpf Ur Squamous Epith Cells (0-4) /hpf Urine Bacteria (None) /hpf Hyaline Casts (0-2) /lpf Urine Mucus (None) /hpf Urine HCG, Qual (Not Detectd) Disposition Clinical Impression: Abdominal pain, Urinary tract infection Narrative: Post hysterectomy vaginal bleeding Disposition: HOME SELF-CARE Condition: Good Instructions (If sedation given, give patient instructions): Abdominal Pain (ED) Prescriptions: Sulfamethox-Tmp 800-160Mg [Bactrim Ds] 1 each PO Q12HR #6 tab Is patient prescribed a controlled substance at d/c from ED?: No Referrals: Beth Bang DO [Primary Care Provider] - 1-2 days Cyn Spence DO [Doctor of Osteopathic Medicine] - 1-2 days
[2022-05-02 17:49] LABS: Basophils % (A) 0 %; Eosinophils # (A) 0.1 k/uL (0-0.7); Eosinophils % (A) 3 %; HGB 12.1 gm/dL (11.4-16.0); Lymphocytes # (A) 1.5 k/uL (1.0-4.8); Lymphocytes % (A) 34 %; MCH 32.2 pg (25.0-35.0); MCHC 34.6 g/dL (31.0-37.0); MCV 93.1 fL (80.0-100.0); Mean Platelet Volume 8.2; Monocytes # (A) 0.3 k/uL (0-1.0); Monocytes % (A) 6 %; Neutrophils # (A) 2.4 k/uL (1.3-7.7); Neutrophils % (A) 54 %; Platelet Count 152 k/uL (150-450); RBC 3.76 m/uL (3.80-5.40); RDW 12.5 % (11.5-15.5); WBC 4.5 k/uL (3.8-10.6)
[2022-05-02 17:55] LABS: Appearance,Urine Clear (Clear); Bacteria,Urine Moderate /hpf; Bilirubin,Urine Negative (Negative); Blood,Urine Moderate (Negative); Color,Urine Yellow; Glucose,Urine (UA) Negative (Negative); Hyaline Casts,Urine 3 /lpf (0-2); Ketones,Urine Negative (Negative); Leukocyte Esterase,Urine Negative (Negative); Mucus,Urine Occasional /hpf; Nitrite,Urine Positive (Negative); Protein,Urine Trace (Negative); RBC,Urine 7 /hpf (0-5); Specific Gravity,Urine 1.024 (1.001-1.035); Squamous Epithelial Cell,Urine 4 /hpf (0-4); Urobilinogen,Urine <2.0 mg/dL (<2.0); WBC,Urine 2 /hpf (0-5)
[2022-05-02 18:06] LABS: ALT 13 U/L (4-34); AST 17 U/L (14-36); African American GFR (CKD) >90 (>60 ml/min/1.73 sqM); Albumin 4.4 g/dL (3.5-5.0); Alkaline Phosphatase 76 U/L (38-126); Amylase 74 U/L (30-110); Anion Gap 5 mmol/L; Blood Urea Nitrogen 13 mg/dL (7-17); Calcium 9.1 mg/dL (8.4-10.2); Carbon Dioxide 27 mmol/L (22-30); Chloride 106 mmol/L (98-107); Glucose 88 mg/dL (74-99); Lipase 118 U/L (23-300); Non-African American GFR(CKD) >90 (>60 ml/min/1.73 sqM); Potassium 4.1 mmol/L (3.5-5.1); Sodium 138 mmol/L (137-145); Total Bilirubin 0.3 mg/dL (0.2-1.3); Total Protein 7.1 g/dL (6.3-8.2)
--- NOTE | 2022-05-02 18:29 | CT ---
EXAMINATION TYPE: CT abdomen pelvis wo con DATE OF EXAM: 05/02/2022 COMPARISON: 11/14/2019 HISTORY: abdominal pain and vaginal bleeding, hysterectomy in 2019 CT DLP: 382.5 mGycm Automated exposure control for dose reduction was used. Images obtained from the diaphragm to the floor the pelvis without contrast. Lung bases are clear. No pleural effusion. Heart size is normal. There are clips from cholecystectomy. Liver spleen stomach pancreas appear intact. The bowel gas are not dilated. There is no adrenal mass. Kidneys have normal size and contour. No hydronephrosis. Ureters are not di lated. No retroperitoneal adenopathy. Appendix is medial and appears normal. There is no mesenteric edema. No ascites or free air. No sign of a bowel obstruction. The bladder dis tends smoothly. No inguinal hernia. No free fluid in the pelvis. No evidence of a pelvic mass. Lumbar vertebrae have normal alignment. No compression fracture. Posterior elements are intact. The b ida pelvis is intact. The hip joints are intact. There is hysterectomy. No adnexal mass. IMPRESSION: Normal appendix. No acute abnormality of the abdomen and pelvis. No adverse change compared to old ex am.
[2022-05-02] MEDS ORDERED: SULFAMETHOX-TMP 800-160MG 1 EACH TAB PO STA (18:52)
[2022-05-02] MEDS ORDERED: MAGNESIUM CITRATE 296 ML BOTTLE PO ONE (18:54)
[2022-05-02 19:14] VITALS: BP 115/80
== END 2022-05-02 19:23 | disposition home or self-care (01) ==
LOC: EC 15:48
DX: N39.0 Urinary tract infection, site not specified (principal); J45.909 Unspecified asthma, uncomplicated; F90.9 Attention-deficit hyperactivity disorder, unspecified type; F41.9 Anxiety disorder, unspecified; F32.A Depression, unspecified; Z87.891 Personal history of nicotine dependence; Z88.0 Allergy status to penicillin; Z91.018 Allergy to other foods; Z88.5 Allergy status to narcotic agent
CPT/HCPCS: 36415; 80053; 82150; 83605; 83690; 85025; 81001; 81025; 74176; 99285; 96374; 96361 ×2; J1885

== ENCOUNTER 2023-06-01 08:22 | Emergency (ER) | payer OTHER ==
[2023-06-01 08:54] VITALS: TEMP 98.2
[2023-06-01] MEDS: ONDANSETRON 4 MG/2 ML VIAL IVP STA (09:24)
[2023-06-01] MEDS: SODIUM CHLORIDE 0.9% 1,000 ML IV STA (09:24)
[2023-06-01] MEDS: methylPREDNISolone SOD SUCCI 125 MG/2 ML VIAL IV STA (09:24)
[2023-06-01 09:28] LABS: Basophils % (A) 0 %; Eosinophils # (A) 0.2 k/uL (0-0.7); Eosinophils % (A) 5 %; HCT 37.2 % (34.0-46.0); HGB 12.5 gm/dL (11.4-16.0); Lymphocytes # (A) 0.7 k/uL (1.0-4.8); Lymphocytes % (A) 17 %; MCH 31.2 pg (25.0-35.0); MCHC 33.6 g/dL (31.0-37.0); MCV 92.7 fL (80.0-100.0); Mean Platelet Volume 8.2; Monocytes # (A) 0.3 k/uL (0-1.0); Monocytes % (A) 7 %; Neutrophils # (A) 2.7 k/uL (1.3-7.7); Neutrophils % (A) 68 %; Platelet Count 166 k/uL (150-450); RBC 4.01 m/uL (3.80-5.40); RDW 13.3 % (11.5-15.5)
--- NOTE | 2023-06-01 09:28 | XR ---
EXAMINATION TYPE: XR chest 2V DATE OF EXAM: 06/01/2023 9:25 AM CLINICAL INDICATION:Female, 42 years old with history of difficulty breathing; [facility] COMPARISON: Chest radiographs from TECHNIQUE: XR chest 2V Frontal and lateral views of the chest. FINDINGS: Lungs/Pleura: There is no evidence of pleural effusion, focal consolidation, or pneumothorax. Pulmonary vascularity: Unremarkable. Heart/mediastinum: Cardiomediastinal silhouette is unremarkable. Musculoskeletal: No acute osseous pathology. IMPRESSION: No acute cardiopulmonary disease/process.
[2023-06-01 09:40] LABS: ALT 11 U/L (4-34); AST 26 U/L (14-36); African American GFR (CKD) >90 (>60 ml/min/1.73 sqM); Albumin 4.6 g/dL (3.5-5.0); Alkaline Phosphatase 79 U/L (38-126); Anion Gap 8 mmol/L; Blood Urea Nitrogen 14 mg/dL (7-17); Calcium 9.6 mg/dL (8.4-10.2); Carbon Dioxide 22 mmol/L (22-30); Chloride 107 mmol/L (98-107); Glucose 93 mg/dL (74-99); Magnesium 1.8 mg/dL (1.6-2.3); Non-African American GFR(CKD) 80 (>60 ml/min/1.73 sqM); Partial Thromboplastin Time 26.9 sec (22.0-30.0); Prothrombin Time 10.6 sec (10.0-12.5); Sodium 137 mmol/L (137-145); Total Bilirubin 0.7 mg/dL (0.2-1.3); Total Protein 7.8 g/dL (6.3-8.2)
[2023-06-01 09:45] LABS: Potassium 4.2 mmol/L (3.5-5.1)
--- NOTE | 2023-06-01 09:55 | ED ---
General Adult HPI - General Chief complaint: Shortness of Breath Stated complaint: COUGH Time Seen by Provider: 06/01/23 08:25 Source: patient, RN notes reviewed Mode of arrival: ambulatory Limitations: no limitations - History of Present Illness Initial comments: 42-year-old female presents emergency department chief complaint of cough and colic symptoms. She states she been sick for 2 weeks. She states she had her inhaler switched from by her primary care physician for her asthma. She states that she is a smoker. Patient states that she has a moderate productive cough, nausea fevers chills and bodyaches. Denies any localized abdominal pain no chest pain. - Related Data Home Medications Medication Instructions Recorded Confirmed Sertraline [Zoloft] 100 mg PO DAILY 06/08/19 05/02/22 Multivitamins, Thera [Multivitamin 1 tab PO DAILY 05/02/22 05/02/22 (formulary)] Previous Rx's Medication Instructions Recorded Sulfamethox-Tmp 800-160Mg [Bactrim 1 each PO Q12HR #6 tab 05/02/22 Ds] Azithromycin [Zithromax Z Pack] 0 tab PO DIRECTED #6 tab 06/01/23 predniSONE 50 mg PO DAILY #5 tab 06/01/23 Allergies Allergy/AdvReac Type Severity Reaction Status Date / Time amoxicillin Allergy Anaphylaxis Verified 06/01/23 08:29 codeine Allergy Unknown Verified 06/01/23 08:29 Penicillins Allergy Anaphylaxis Verified 06/01/23 08:29 morphine AdvReac Nausea & Verified 06/01/23 08:29 Vomiting RED & GREEN PEPPER AdvReac Anaphylaxis Uncoded 06/01/23 08:29 Review of Systems ROS Statement: Those systems with pertinent positive or pertinent negative responses have been documented in the HPI. ROS Other: All systems not noted in ROS Statement are negative. Past Medical History Past Medical History: Asthma, GERD/Reflux, Seizure Disorder Additional Past Medical History / Comment(s): states seizure August 2015. Obstetric history: She has had 2 vaginal deliveries, 1 elective termination, 2 miscarriages History of Any Multi-Drug Resistant Organisms: None Reported Past Surgical History: Cholecystectomy, Hysterectomy Additional Past Surgical History / Comment(s): EGD Past Anesthesia/Blood Transfusion Reactions: Motion Sickness, Postoperative Nausea & Vomiting (PONV) Past Psychological History: ADD/ADHD, Anxiety, Depression, PTSD, Schizophrenia Smoking Status: Former smoker Past Alcohol Use History: None Reported Past Drug Use History: None Reported - Past Family History Mother Family Medical History: Cancer, Diabetes Mellitus, Hypertension Additional Family Medical History / Comment(s): STOMACH AND PANCREATIC CANCER General Exam Limitations: no limitations General appearance: alert, in no apparent distress Head exam: Present: atraumatic, normocephalic, normal inspection Eye exam: Present: normal appearance, PERRL, EOMI. Absent: scleral icterus, conjunctival injection, periorbital swelling ENT exam: Present: normal exam, normal oropharynx, mucous membranes moist Neck exam: Present: normal inspection, full ROM. Absent: tenderness, meningismus, lymphadenopathy Respiratory exam: Present: normal lung sounds bilaterally. Absent: respiratory distress, wheezes, rales, rhonchi, stridor Cardiovascular Exam: Present: regular rate, normal rhythm, normal heart sounds. Absent: systolic murmur, diastolic murmur, rubs, gallop, clicks Neurological exam: Present: alert, oriented X3 Skin exam: Present: warm, dry, intact, normal color. Absent: rash Course Vital Signs 06/01/23 06/01/23 06/01/23 08:26 09:01 11:12 Temperature 98.2 F Pulse Rate 98 88 Respiratory 20 22 Rate Blood Pressure 91/66 O2 Sat by Pulse 97 Oximetry 06/01/23 06/01/23 11:27 11:34 Temperature Pulse Rate 100 58 L Respiratory 18 Rate Blood Pressure 122/68 O2 Sat by Pulse 98 Oximetry EKG Findings - EKG Comments: EKG Findings:: EKG performed at 8: 41 sinus rhythm rate of 86 MA 128 QRS 88 QT/QTc 353/396 - EKG Results: EKG: interpreted by RANDA Medical Decision Making - Medical Decision Making Was pt. sent in by a medical professional or institution (, PA, INCLUSION SPECIAL EDUCATOR, urgent care, hospital, or skilled nursing...) When possible be specific @ -No Did you speak to anyone other than the patient for history (EMS, parent, family, police, friend...)? What history was obtained from this source @ -No Did you review nursing and triage notes (agree or disagree)? Why? @ -I reviewed and agree with nursing and triage notes Were old charts reviewed (outside hosp., previous admission, EMS record, old EKG, old radiological studies, urgent care reports/EKG's, skilled nursing records)? Report findings @ -No old charts were reviewed Differential Diagnosis (chest pain, altered mental status, abdominal pain women, abdominal pain men, vaginal bleeding, weakness, fever, dyspnea, syncope, headache, dizziness, GI bleed, back pain, seizure, CVA, palpatations, mental health, musculoskeletal)? @ -Differential Dyspnea: Coronary syndrome, arrhythmia, tamponade, asthma, COPD, pulmonary embolism, pneumonia, pneumothorax, pulmonary effusion, anaphylaxis, diabetic ketoacidosis, flailed chest, pulmonary contusion, diaphragmatic rupture, anemia, neuromuscular, this is not meant to be an all-inclusive list. EKG interpreted by me (3pts min.). @ -As above X-rays interpreted by me (1pt min.). @ -[Chest x-ray shows no evidence of pneumonia, no acute cardiopulmonary process CT interpreted by me (1pt min.). @ -None done U/S interpreted by me (1pt. min.). @ -None done What testing was considered but not performed or refused? (CT, X-rays, U/S, labs)? Why? @ -None What meds were considered but not given or refused? Why? @ -None Did you discuss the management of the patient with other professionals (biju munoz i.e. , PA, INCLUSION SPECIAL EDUCATOR, lab, RT, psych nurse, outreach and education social worker, defensive secondary coach, teacher, traffic division commanding officer, pillowcase sewer)? Give summary @ -No Was smoking cessation discussed for >3mins.? @ -No Was critical care preformed (if so, how long)? @ -No Were there social determinants of health that impacted care today? How? (Homelessness, low income, unemployed, alcoholism, drug addiction, transportation, low edu. Level, literacy, decrease access to med. care, [facility], rehab)? @ -No Was there de-escalation of care discussed even if they declined (Discuss DNR or withdrawal of care, Hospice)? DNR status @ -No What co-morbidities impacted this encounter? (DM, HTN, Smoking, COPD, CAD, Cancer, CVA, ARF, Chemo, Hep., AIDS, mental health diagnosis, sleep apnea, morbid obesity)? @ -[Smoking, COPD, asthma Was patient admitted / discharged? Hospital course, mention meds given and route, prescriptions, significant lab abnormalities, going to OR and other pertinent info. @ -This [place] patient is improved after Solu-Medrol, breathing treatment. Patient has no evidence of pneumonia but concerning for asthmatic tracheobr onchitis. Patient be discharged with steroids, antibiotics return brands discussed Undiagnosed new problem with uncertain prognosis? @ -[No Drug Therapy requiring intensive monitoring for toxicity (Heparin, Nitro, Insulin, Cardizem)? @ -No Were any procedures done? @ -No Diagnosis/symptom? @ -[Trachea bronchitis Acute, or Chronic, or Acute on Chronic? @ -Acute Uncomplicated (without systemic symptoms) or Complicated (systemic symptoms)? @ -complicated Side effects of treatment? @ -No Exacerbation, Progression, or Severe Exacerbation? @ -No Poses a threat to life or bodily function? How? (Chest pain, [place], [place], pneumonia, PE, COPD, DKA, ARF, appy, cholecystitis, CVA, Diverticulitis, Homicidal, Suicidal, threat to staff... and all critical care pts) @ -[yes asthma, COPD - Lab Data Result diagrams: 06/01/23 09:13 06/01/23 09:13 Lab Results 06/01/23 06/01/23 06/01/23 Range/Units 09:13 09:13 09:13 WBC 4.0 (3.8-10.6) k/uL RBC 4.01 (3.80-5.40) m/uL Hgb 12.5 (11.4-16.0) gm/dL Hct 37.2 (34.0-46.0) % MCV 92.7 (80.0-100.0) fL MCH 31.2 (25.0-35.0) pg MCHC 33.6 (31.0-37.0) g/dL RDW 13.3 (11.5-15.5) % Plt Count 166 (150-450) k/uL MPV 8.2 Neutrophils % 68 % Lymphocytes % 17 % Monocytes % 7 % Eosinophils % 5 % Basophils % 0 % Neutrophils # 2.7 (1.3-7.7) k/uL Lymphocytes # 0.7 L (1.0-4.8) k/uL Monocytes # 0.3 (0-1.0) k/uL Eosinophils # 0.2 (0-0.7) k/uL Basophils # 0.0 (0-0.2) k/uL PT 10.6 (10.0-12.5) sec INR 1.0 (<1.2) APTT 26.9 (22.0-30.0) sec Sodium (137-145) mmol/L Potassium (3.5-5.1) mmol/L Chloride (98-107) mmol/L Carbon Dioxide (22-30) mmol/L Anion Gap mmol/L BUN (7-17) mg/dL Creatinine (0.52-1.04) mg/dL Est GFR (CKD-EPI)AfAm (>60 ml/min/1.73 sqM) Est GFR (CKD-EPI)NonAf (>60 ml/min/1.73 sqM) Glucose (74-99) mg/dL Plasma Lactic Acid Alonso (0.7-2.0) mmol/L Calcium (8.4-10.2) mg/dL Magnesium (1.6-2.3) mg/dL Total Bilirubin (0.2-1.3) mg/dL AST (14-36) U/L ALT (4-34) U/L Alkaline Phosphatase (38-126) U/L Troponin I (0.000-0.034) ng/mL Total Protein (6.3-8.2) g/dL Albumin (3.5-5.0) g/dL Influenza Type A (PCR) Not Detected (Not Detectd) Influenza Type B (PCR) Not Detected (Not Detectd) RSV (PCR) Not Detected (Not Detectd) SARS-CoV-2 (PCR) Not Detected (Not Detectd) 06/01/23 06/01/23 06/01/23 Range/Units 09:13 09:13 09:13 WBC (3.8-10.6) k/uL RBC (3.80-5.40) m/uL Hgb (11.4-16.0) gm/dL Hct (34.0-46.0) % MCV (80.0-100.0) fL MCH (25.0-35.0) pg MCHC (31.0-37.0) g/dL RDW (11.5-15.5) % Plt Count (150-450) k/uL MPV Neutrophils % % Lymphocytes % % Monocytes % % Eosinophils % % Basophils % % Neutrophils # (1.3-7.7) k/uL Lymphocytes # (1.0-4.8) k/uL Monocytes # (0-1.0) k/uL Eosinophils # (0-0.7) k/uL Basophils # (0-0.2) k/uL PT (10.0-12.5) sec INR (<1.2) APTT (22.0-30.0) sec Sodium 137 (137-145) mmol/L Potassium 4.2 (3.5-5.1) mmol/L Chloride 107 (98-107) mmol/L Carbon Dioxide 22 (22-30) mmol/L Anion Gap 8 mmol/L BUN 14 (7-17) mg/dL Creatinine 0.89 (0.52-1.04) mg/dL Est GFR (CKD-EPI)AfAm >90 (>60 ml/min/1.73 sqM) Est GFR (CKD-EPI)NonAf 80 (>60 ml/min/1.73 sqM) Glucose 93 (74-99) mg/dL Plasma Lactic Acid Alonso 0.7 (0.7-2.0) mmol/L Calcium 9.6 (8.4-10.2) mg/dL Magnesium 1.8 (1.6-2.3) mg/dL Total Bilirubin 0.7 (0.2-1.3) mg/dL AST 26 (14-36) U/L ALT 11 (4-34) U/L Alkaline Phosphatase 79 (38-126) U/L Troponin I <0.012 (0.000-0.034) ng/mL Total Protein 7.8 (6.3-8.2) g/dL Albumin 4.6 (3.5-5.0) g/dL Influenza Type A (PCR) (Not Detectd) Influenza Type B (PCR) (Not Detectd) RSV (PCR) (Not Detectd) SARS-CoV-2 (PCR) (Not Detectd) Disposition Clinical Impression: Asthmatic bronchitis Disposition: HOME SELF-CARE Condition: Stable Instructions (If sedation given, give patient instructions): Acute Bronchitis (ED) Additional Instructions: Please return to the Emergency Department if symptoms worsen or any other concerns. Prescriptions: predniSONE 50 mg PO DAILY #5 tab Azithromycin [Zithromax Z Pack] 0 tab PO DIRECTED #6 tab Is patient prescribed a controlled substance at d/c from ED?: No Referrals: Beth Bang DO [Primary Care Provider] - 1-2 days Time of Disposition: 11:29
[2023-06-01] MEDS: IPRATROPIUM-ALBUTEROL 3 ML NEB INHALATION STA (11:09)
[2023-06-01 12:02] VITALS: BP 122/68; PULSE 58; RESP 18
== END 2023-06-01 11:56 | disposition home or self-care (01) ==
LOC: EC 08:22
DX: J45.909 Unspecified asthma, uncomplicated (principal); F41.9 Anxiety disorder, unspecified; F32.A Depression, unspecified; F90.9 Attention-deficit hyperactivity disorder, unspecified type; Z79.899 Other long term (current) drug therapy; Z87.891 Personal history of nicotine dependence; Z20.822 Contact with and (suspected) exposure to COVID-19; Z88.2 Allergy status to sulfonamides; Z88.8 Allergy status to other drugs, medicaments and biological substances; Z88.1 Allergy status to other antibiotic agents
CPT/HCPCS: 36415; 94640; 93005; 80053; 83605; 83735; 84484; 85025; 85610; 85730; 87636; 71046; 99285; 96374; 96375; 96361; J2930; J2405

== ENCOUNTER 2024-02-13 09:51 | Emergency (ER) | payer OTHER ==
--- NOTE | 2024-02-13 10:35 | ED ---
Chest Pain HPI - General Chief Complaint: Recheck/Abnormal Lab/Rx Stated Complaint: Chest pain,Marcial.arm numbness Time Seen by Provider: 02/13/24 10:02 Source: patient, RN notes reviewed Mode of arrival: ambulatory Limitations: no limitations - History of Present Illness Initial Comments: This is a 43-year-old female who presents to the emergency department for multiple complaints. States that 2 weeks ago she started to develop chest pain/pressure, shortness of breath, and bodyaches. Symptoms continue to persist. Also reports pain and numbness in her bilateral upper and lower extremities. She has a history of blood clots about 7 years ago. States that these were all in her extremities and never traveled to her lungs. They occurred when she was . Not currently on anticoagulation therapy. Over the last couple of days she started to cough up blood as well. MD Complaint: chest pain - Related Data Home Medications Medication Instructions Recorded Confirmed Sertraline [Zoloft] 100 mg PO DAILY 06/08/19 02/13/24 Albuterol Inhaler [Ventolin Hfa 2 puff INHALATION RT-QID PRN 02/13/24 02/13/24 Inhaler] Fluticasone/Umeclidin/Vilanter 1 puff INHALATION RT-DAILY 02/13/24 02/13/24 [Trelegy Ellipta 200-62.5-25] Montelukast [Singulair] 10 mg PO HS 02/13/24 02/13/24 busPIRone HCL 15 mg PO TID 02/13/24 02/13/24 diphenhydrAMINE [Benadryl] 25 mg PO HS 02/13/24 02/13/24 Previous Rx's Medication Instructions Recorded Azithromycin [Zithromax] 250 mg PO DIRECTED 5 Days #6 tab 02/13/24 predniSONE 50 mg PO DAILY 5 Days #5 tab 02/13/24 Allergies Allergy/AdvReac Type Severity Reaction Status Date / Time amoxicillin Allergy Anaphylaxis Verified 02/13/24 10:31 codeine Allergy Nausea & Verified 02/13/24 10:31 Vomiting Penicillins Allergy Anaphylaxis Verified 02/13/24 10:31 morphine AdvReac Dyspnea Verified 02/13/24 10:31 RED & GREEN PEPPER AdvReac Anaphylaxis Uncoded 02/13/24 10:00 Review of Systems ROS Statement: Those systems with pertinent positive or pertinent negative responses have been documented in the HPI. ROS Other: All systems not noted in ROS Statement are negative. Past Medical History Past Medical History: Asthma, GERD/Reflux, Seizure Disorder Additional Past Medical History / Comment(s): states seizure August 2015. Obstetric history: She has had 2 vaginal deliveries, 1 elective termination, 2 miscarriages History of Any Multi-Drug Resistant Organisms: None Reported Past Surgical History: Cholecystectomy, Hysterectomy Additional Past Surgical History / Comment(s): EGD Past Anesthesia/Blood Transfusion Reactions: Motion Sickness, Postoperative Nausea & Vomiting (PONV) Past Psychological History: ADD/ADHD, Anxiety, Depression, PTSD, Schizophrenia Smoking Status: Former smoker Past Alcohol Use History: None Reported Past Drug Use History: None Reported - Past Family History Mother Family Medical History: Cancer, Diabetes Mellitus, Hypertension Additional Family Medical History / Comment(s): STOMACH AND PANCREATIC CANCER General Exam Limitations: no limitations General appearance: alert, in no apparent distress Head exam: Present: atraumatic, normocephalic, normal inspection Respiratory exam: Present: normal lung sounds bilaterally. Absent: respiratory distress, wheezes, rales, rhonchi, stridor Cardiovascular Exam: Present: regular rate, normal rhythm, normal heart sounds. Absent: systolic murmur, diastolic murmur, rubs, gallop, clicks Neurological exam: Present: alert, oriented X3, CN II-XII intact Psychiatric exam: Present: normal affect, normal mood Skin exam: Present: warm, dry, intact, normal color. Absent: rash Course Vital Signs 02/13/24 02/13/24 02/13/24 09:56 10:18 10:43 Temperature 98.5 F Pulse Rate 98 92 Respiratory 18 22 Rate Blood Pressure 119/79 112/92 103/75 O2 Sat by Pulse 98 99 Oximetry 02/13/24 02/13/24 02/13/24 11:35 11:49 11:59 Temperature Pulse Rate 67 68 Respiratory Rate Blood Pressure O2 Sat by Pulse 99 Oximetry 02/13/24 12:41 Temperature 98.2 F Pulse Rate 77 Respiratory 16 Rate Blood Pressure 104/68 O2 Sat by Pulse 93 L Oximetry Chest Pain MDM - MDM This is a 43 year old female who presents to the emergency department for chest pain and body aches. Was pt. sent in by a medical professional or institution? @ -No Did you speak to anyone other than the patient for history? @ -No Did you review nursing and triage notes? @ -Yes, and I agree, it is accurate with regards to the patient's symptoms. Were old charts reviewed? @ -No Differential Diagnosis? @ -Differential Chest Pain: Stable Angina, Unstable Angina, STEMI, NSTEMI Aortic Dissection, Pneumothorax, Musculoskeletal, Esophageal Spasm GERD, Cholecystitis, Pancreatitis, Zoster, this is not meant to be an all-inclusive list. EKG interpreted by me (3pts min.)? @ -EKG interpreted by me demonstrating the following: Sinus rhythm. Ventricular rate 83 BPM, UT interval 137 ms, QRS duration 99 ms, QTc 389 ms. X-rays interpreted by me (1pt min.)? @ -Chest x-ray obtained, my interpretation identifies no localized consolidati ons or infiltrates. CT interpreted by me (1pt min.)? @ -Not obtained U/S interpreted by me (1pt. min.)? @ -Not obtained What testing was considered but not performed? (CT, X-rays, U/S, labs)? Why? @ -None What meds were considered but not given? Why? @ -None Did you discuss the management of the patient with other professionals? @ -No Did you reconcile home meds? @ -No Was smoking cessation discussed for >3mins.? @ -No Was critical care preformed (if so, how long)? @ -No Were there social determinants of health that impacted care today? How? (Homelessness, low income, unemployed, alcoholism, drug addiction, transportation, low edu. Level, literacy, decrease access to med. care, prison, rehab)? @ -No Was there de-escalation of care discussed even if they declined? (Discuss DNR or withdrawal of care, Hospice)? @ -No What co-morbidities impacted this encounter? (DM, HTN, Smoking, COPD, CAD, Cancer, CVA, Hep., AIDS, mental health diagnosis, sleep apnea, morbid obesity)? @ -Asthma Was patient admitted / discharged? @ -Discharged. Lab work unremarkable. Troponin and D-dimer negative. COVID, influenza, and RSV testing negative. Chest x-ray reveals no acute process. Symptoms managed in the emergency department. Given the duration of her symptoms for over 2 weeks with associated asthma, will treat patient with a course of antibiotics at this point. Prescription for prednisone and azithromycin provided. Advised she continue to use her albuterol inhaler as needed. Patient discharged home in stable condition. Case discussed with ED attending Dr. Jimenez. Return precautions reviewed in depth, the patient is instructed to return to the emergency department with any new, worsening, or concerning symptoms. Patient verbalized understanding. Undiagnosed new problem with uncertain prognosis? @ -None Drug Therapy requiring intensive monitoring for toxicity (Heparin, Nitro, Insulin, Cardizem)? @ -None Were any procedures done? @ -None Diagnosis/symptom? @ -Asthma exacerbation Acute, or Chronic, or Acute on Chronic? @ -Acute on chronic Uncomplicated (without systemic symptoms) or Complicated (systemic symptoms)? @ -Uncomplicated Side effects of treatment? @ -None Exacerbation, Progression, or Severe Exacerbation] @ -Exacerbation Poses a threat to life or bodily function? @ -No Disposition Clinical Impression: Asthma exacerbation, URI (upper respiratory infection) Disposition: HOME SELF-CARE Instructions (If sedation given, give patient instructions): Asthma (ED) Additional Instructions: Return to the emergency department with any new, worsening, or concerning symptoms. Take the prednisone daily for 5 days. Take the antibiotic as prescribed for 5 days. Follow up with your primary care provider in 1-2 days. Prescriptions: predniSONE 50 mg PO DAILY 5 Days #5 tab Azithromycin [Zithromax] 250 mg PO DIRECTED 5 Days #6 tab Is patient prescribed a controlled substance at d/c from ED?: No Referrals: Beth Bang DO [Primary Care Provider] - 1-2 days Time of Disposition: 12:20
[2024-02-13] MEDS: methylPREDNISolone SOD SUCCI 125 MG/2 ML VIAL IV STA (10:41)
[2024-02-13] MEDS: SODIUM CHLORIDE 0.9% 1,000 ML IV STA (10:41)
[2024-02-13] MEDS: KETOROLAC 15 MG/ML 1 ML VIAL IVP STA (10:42)
[2024-02-13] MEDS: HYDROmorphone 1 MG/ML 1 ML SYRINGE IVP STA (10:43)
[2024-02-13 10:51] LABS: Basophils % (A) 0 %; Eosinophils # (A) 0.1 k/uL (0-0.7); Eosinophils % (A) 2 %; HCT 40.5 % (34.0-46.0); HGB 13.5 gm/dL (11.4-16.0); Lymphocytes # (A) 0.8 k/uL (1.0-4.8); Lymphocytes % (A) 21 %; MCH 31.8 pg (25.0-35.0); MCHC 33.4 g/dL (31.0-37.0); MCV 95.1 fL (80.0-100.0); Mean Platelet Volume 7.6; Monocytes # (A) 0.3 k/uL (0-1.0); Monocytes % (A) 8 %; Neutrophils # (A) 2.5 k/uL (1.3-7.7); Neutrophils % (A) 66 %; Platelet Count 176 k/uL (150-450); RBC 4.26 m/uL (3.80-5.40); WBC 3.8 k/uL (3.8-10.6)
[2024-02-13 11:01] LABS: INR 0.9 (<1.2); Partial Thromboplastin Time 26.2 sec (22.0-30.0); Prothrombin Time 10.5 sec (10.0-12.5)
[2024-02-13 11:03] LABS: ALT 15 U/L (4-34); AST 27 U/L (14-36); African American GFR (CKD) >90 (>60 ml/min/1.73 sqM); Alkaline Phosphatase 72 U/L (38-126); Anion Gap 11 mmol/L; Blood Urea Nitrogen 11 mg/dL (7-17); Carbon Dioxide 23 mmol/L (22-30); Chloride 103 mmol/L (98-107); Glucose 94 mg/dL (74-99); Lipase 124 U/L (23-300); Magnesium 1.9 mg/dL (1.6-2.3); Non-African American GFR(CKD) 79 (>60 ml/min/1.73 sqM); Potassium 4.5 mmol/L (3.5-5.1); Sodium 137 mmol/L (137-145); Total Bilirubin 0.6 mg/dL (0.2-1.3); Total Protein 8.1 g/dL (6.3-8.2)
[2024-02-13] MEDS: ONDANSETRON 4 MG/2 ML VIAL IVP STA (11:04)
[2024-02-13] MEDS: IPRATROPIUM-ALBUTEROL 3 ML NEB INHALATION STA (11:49)
--- NOTE | 2024-02-13 11:53 | XR ---
EXAMINATION TYPE: XR chest 2V DATE OF EXAM: 02/13/2024 COMPARISON: 06/01/2023 HISTORY: 43-year-old female with chest pain TECHNIQUE: AP and lateral views FINDINGS: The cardiomediastinal silhouette, aorta, and pulmonary vasculature are within normal limits. Lungs an d pleural spaces are clear. IMPRESSION: No acute cardiopulmonary process. [facility], , 02/13/2024 11:50 AM
[2024-02-13] MEDS: LORazepam 2 MG/ML INJ IV STA (11:55)
[2024-02-13] MEDS: ONDANSETRON 4 MG ODT STARTER PACK 2 TAB BTL PO STA (12:39)
[2024-02-13] MEDS: traMADol 50 MG STARTER PACK 3 TAB BTL PO STA (12:39)
[2024-02-13 12:42] VITALS: BP 104/68; PULSE 77; RESP 16; TEMP 98.2
== END 2024-02-13 12:46 | disposition home or self-care (01) ==
LOC: EC 09:51
DX: J45.901 Unspecified asthma with (acute) exacerbation (principal); J06.9 Acute upper respiratory infection, unspecified; Z88.0 Allergy status to penicillin; Z88.5 Allergy status to narcotic agent; Z91.02 Food additives allergy status; Z87.891 Personal history of nicotine dependence; Z79.899 Other long term (current) drug therapy
CPT/HCPCS: 36415; 94640; 93005; 85379; 80053; 83605; 83690; 83735; 84484; 85025; 85610; 85730; 87636; 71046; 99285; 96374; 96375 ×4; 96361; J2060; J2405; J1171; J1885; S0119; J2919

== ENCOUNTER 2024-05-18 15:40 | Emergency (ER) | payer OTHER ==
--- NOTE | 2024-05-18 15:55 | ED ---
Chest Pain HPI - General Chief Complaint: Chest Pain Stated Complaint: chest pain numb legs Time Seen by Provider: 05/18/24 15:51 Source: patient, RN notes reviewed, old records reviewed Mode of arrival: wheelchair Limitations: no limitations - History of Present Illness Initial Comments: This is a 43-year-old female to the ER with chest pain shortness of breath weakness feels cold shaking. History of asthma history of PE not on blood thinners. No travel history or sick contacts no other complaints MD Complaint: chest pain, other (Shortness of breath weakness) -: days(s) Onset: during rest, during exertion Pain Location: left chest Pain Radiation: back Severity: moderate Severity scale (1-10): 6 Quality: sharp Consistency: constant Improves With: nothing Worsens With: nothing Context: recent illness Anginal Symptoms: dyspnea, sense of impending doom Other Symptoms: palpitations Treatments Prior to Arrival: none - Related Data Home Medications Medication Instructions Recorded Confirmed Sertraline [Zoloft] 100 mg PO DAILY 06/08/19 02/13/24 Albuterol Inhaler [Ventolin Hfa 2 puff INHALATION RT-QID PRN 02/13/24 02/13/24 Inhaler] Fluticasone/Umeclidin/Vilanter 1 puff INHALATION RT-DAILY 02/13/24 02/13/24 [Trelecharis Ellipta 200-62.5-25] Montelukast [Singulair] 10 mg PO HS 02/13/24 02/13/24 busPIRone HCL 15 mg PO TID 02/13/24 02/13/24 diphenhydrAMINE [Benadryl] 25 mg PO HS 02/13/24 02/13/24 Previous Rx's Medication Instructions Recorded Azithromycin [Zithromax] 250 mg PO DIRECTED 5 Days #6 tab 02/13/24 predniSONE 50 mg PO DAILY 5 Days #5 tab 02/13/24 Allergies Allergy/AdvReac Type Severity Reaction Status Date / Time amoxicillin Allergy Anaphylaxis Verified 05/18/24 15:47 codeine Allergy Nausea & Verified 05/18/24 15:47 Vomiting Penicillins Allergy Anaphylaxis Verified 05/18/24 15:47 morphine AdvReac Dyspnea Verified 05/18/24 15:47 RED & GREEN PEPPER AdvReac Anaphylaxis Uncoded 05/18/24 15:47 Review of Systems ROS Statement: Those systems with pertinent positive or pertinent negative responses have been documented in the HPI. ROS Other: All systems not noted in ROS Statement are negative. EKG Findings - EKG Comments: EKG Findings:: EKG sinus 96 VT 140 QRS 98 QTc 358 - EKG Results: EKG: interpreted by RANDA Past Medical History Past Medical History: Asthma, GERD/Reflux, Seizure Disorder Additional Past Medical History / Comment(s): states seizure August 2015. Ob stetric history: She has had 2 vaginal deliveries, 1 elective termination, 2 miscarriages History of Any Multi-Drug Resistant Organisms: None Reported Past Surgical History: Cholecystectomy, Hysterectomy Additional Past Surgical History / Comment(s): EGD Past Anesthesia/Blood Transfusion Reactions: Motion Sickness, Postoperative Nausea & Vomiting (PONV) Past Psychological History: ADD/ADHD, Anxiety, Depression, PTSD, Schizophrenia Smoking Status: Former smoker Past Alcohol Use History: None Reported Past Drug Use History: None Reported - Past Family History Mother Family Medical History: Cancer, Diabetes Mellitus, Hypertension Additional Family Medical History / Comment(s): STOMACH AND PANCREATIC CANCER General Exam Limitations: no limitations General appearance: alert, in no apparent distress Head exam: Present: atraumatic, normocephalic, normal inspection Eye exam: Present: normal appearance, PERRL, EOMI. Absent: scleral icterus, conjunctival injection, periorbital swelling ENT exam: Present: normal exam, mucous membranes moist Neck exam: Present: normal inspection. Absent: tenderness, meningismus, lymphadenopathy Respiratory exam: Present: normal lung sounds bilaterally. Absent: respiratory distress, wheezes, rales, rhonchi, stridor Cardiovascular Exam: Present: regular rate, normal rhythm, normal heart sounds. Absent: systolic murmur, diastolic murmur, rubs, gallop, clicks GI/Abdominal exam: Present: soft, normal bowel sounds. Absent: distended, tenderness, guarding, rebound, rigid Extremities exam: Present: normal inspection, full ROM, normal capillary refill. Absent: tenderness, pedal edema, joint swelling, calf tenderness Back exam: Present: normal inspection Neurological exam: Present: alert, oriented X3, CN II-XII intact Psychiatric exam: Present: normal affect, normal mood Skin exam: Present: warm, dry, intact, normal color. Absent: rash Course Vital Signs 05/18/24 05/18/24 05/18/24 15:47 16:11 17:23 Temperature 98 F Pulse Rate 104 H 98 87 Respiratory 20 23 18 Rate Blood Pressure 102/64 110/92 125/86 O2 Sat by Pulse 96 100 99 Oximetry 05/18/24 17:50 Temperature 99.9 F H Pulse Rate 87 Respiratory 18 Rate Blood Pressure 121/71 O2 Sat by Pulse 98 Oximetry - Reevaluation(s) Reevaluation #1: 05/18/24 15:54 Medical records reviewed Reevaluation #2: 05/18/24 17:50 Patient symptoms unimproved Reevaluation #3: 05/18/24 18:12 Patient informed of results and questions answered Reevaluation #4: Was pt. sent in by a medical professional or institution ([facility] Cardenas, [employer], urgent care, hospital, or [facility]...) When possible be specific @ -no Did you speak to anyone other than the patient for history (EMS, parent, family, police, friend...)? What history was obtained from this source @ -no Did you review nursing and triage notes (agree or disagree)? Why? @ -agree Are old charts reviewed (outside hosp., previous admission, EMS record, old EKG, old radiological studies, urgent care reports/EKG's, [facility] records)? Report findings @ -yes Differential Diagnosis (chest pain, altered mental status, abdominal pain women, abdominal pain men, vaginal bleeding, weakness, fever, dyspnea, syncope, headache, dizziness, GI bleed, back pain, seizure, CVA, palpatations, mental health, musculoskeletal)? @ -prior EKG interpreted by me (3pts min.). @ -yes X-rays interpreted by me (1pt min.). @ -yes negative for acute disease CT interpreted by me (1pt min.). @ -no U/S interpreted by me (1pt. min.). @ -no What testing was considered but not performed or refused? (CT, X-rays, U/S, labs)? Why? @ -none What meds were considered but not given or refused? Why? @ -none Did you discuss the management of the patient with other professionals (professionals i.e. [facility]LL[facility] Cardenas, [employer] SCI[employer]IST, lab, RT, psych nurse, community mental health social worker, mulcher operator, teacher, juvenile corrections officer, ed case manager)? Give summary @ -no Was smoking cessation discussed for >3mins.? @ -no Was critical care preformed (if so, how long)? @ -no Were there social determinants of health that impacted care today? How? (Homelessness, low income, unemployed, alcoholism, drug addiction, transportation, low edu. Level, literacy, decrease access to med. care, long-term, rehab)? @ -none Was there de-escalation of care discussed even if they declined (Discuss DNR or withdrawal of care, Hospice)? DNR status @ -no What co-morbidities impacted this encounter? (DM, HTN, Smoking, COPD, CAD, Cancer, CVA, ARF, Chemo, Hep., AIDS, mental health diagnosis, sleep apnea, morbid obesity)? @ -none Was patient admitted / discharged? Hospital course, mention meds given and route, prescriptions, significant lab abnormalities, going to OR and other pertinent info. @ - Undiagnosed new problem with uncertain prognosis? @ -no Drug Therapy requiring intensive monitoring for toxicity (Heparin, Nitro, Insulin, Cardizem)? @ -no Were any procedures done? @ -no Diagnosis/symptom? @ - Acute, or Chronic, or Acute on Chronic? @ -Acute Uncomplicated (without systemic symptoms) or Complicated (systemic symptoms)? @ -Complicated Side effects of treatment? @ -no Exacerbation, Progression, or Severe Exacerbation? @ -exacerbation Poses a threat to life or bodily function? How? (Chest pain, USA, CT, pneumonia, PE, COPD, DKA, ARF, appy, cholecystitis, CVA, Diverticulitis, Homicidal, Suicidal, threat to staff... and all critical care pts) @ -yes Reevaluation #5: Differential Chest Pain: Stable Angina, Unstable Angina, STEMI, NSTEMI Aortic Dissection, Pneumothorax, Musculoskeletal, Esophageal Spasm GERD, Cholecystitis, Pancreatitis, Zoster, this is not meant to be an all-inclusive list. Chest Pain MDM - MDM 43 female to the ER with chest pain and shortness of breath both improved here in the ER CTA negative for acute disease patient discharged home Disposition Clinical Impression: Chest pain, Atypical chest pain Disposition: HOME SELF-CARE Condition: Good Instructions (If sedation given, give patient instructions): Chest Pain (ED) Is patient prescribed a controlled substance at d/c from ED?: No Referrals: Paige Song PAC [Family Provider] - 1-2 days Time of Disposition: 18:00
[2024-05-18] MEDS: SODIUM CHLORIDE 0.9% 1,000 ML IV STA ×2 (16:13→17:49)
[2024-05-18 16:17] LABS: Basophils % (A) 0 %; Eosinophils % (A) 0 %; HCT 34.7 % (34.0-46.0); Lymphocytes # (A) 1.2 k/uL (1.0-4.8); Lymphocytes % (A) 17 %; MCH 32.1 pg (25.0-35.0); MCHC 34.5 g/dL (31.0-37.0); MCV 92.8 fL (80.0-100.0); Monocytes # (A) 0.4 k/uL (0-1.0); Monocytes % (A) 5 %; Neutrophils # (A) 5.6 k/uL (1.3-7.7); Neutrophils % (A) 77 %; Platelet Count 138 k/uL (150-450); RBC 3.73 m/uL (3.80-5.40); RDW 13.3 % (11.5-15.5); WBC 7.4 k/uL (3.8-10.6)
[2024-05-18 16:29] LABS: INR 1.1 (<1.2); Partial Thromboplastin Time 25.2 sec (22.0-30.0); Prothrombin Time 11.6 sec (10.0-12.5)
[2024-05-18 16:31] LABS: ALT 10 U/L (4-34); AST 15 U/L (14-36); African American GFR (CKD) >90 (>60 ml/min/1.73 sqM); Albumin 4.8 g/dL (3.5-5.0); Alkaline Phosphatase 76 U/L (38-126); Anion Gap 12 mmol/L; Blood Urea Nitrogen 9 mg/dL (7-17); Calcium 9.9 mg/dL (8.4-10.2); Carbon Dioxide 23 mmol/L (22-30); Chloride 99 mmol/L (98-107); Glucose 98 mg/dL (74-99); Lipase 101 U/L (23-300); Magnesium 1.5 mg/dL (1.6-2.3); Non-African American GFR(CKD) 84 (>60 ml/min/1.73 sqM); Sodium 134 mmol/L (137-145); Total Protein 7.4 g/dL (6.3-8.2)
[2024-05-18 16:39] LABS: NT-Pro-B-Type Natriuretic Pept 82 pg/mL
--- NOTE | 2024-05-18 16:49 | XR ---
EXAMINATION TYPE: XR chest 2V DATE OF EXAM: 05/18/2024 4:42 PM COMPARISON: Previous chest radiograph 02/13/2024. CLINICAL INDICATION: Female, 43 years old with history of Chest Pain; [facility] TECHNIQUE: XR chest 2V Frontal and lateral views of the chest. FINDINGS: Lungs/Pleura: There is no evidence of pleural effusion, focal consolidation, or pneumothorax. Pulmonary vascularity: Unremarkable. Heart/mediastinum: Cardiomediastinal silhouette is unremarkable. Musculoskeletal: No acute osseous pathology. Other findings: None IMPRESSION: No acute cardiopulmonary disease/process. [facility], , 05/18/2024 4:47 PM
[2024-05-18 17:26] VITALS: RESP 18
[2024-05-18] MEDS: ONDANSETRON 4 MG/2 ML VIAL IVP STA (17:49)
[2024-05-18] MEDS: HYDROmorphone 0.5 MG/0.5 ML SYRINGE IVP STA (17:53)
--- NOTE | 2024-05-18 17:55 | CT ---
EXAMINATION TYPE: CT angio chest DATE OF EXAM: 05/18/2024 5:43 PM COMPARISON: Previous CT study dated 01/11/2019. CLINICAL INDICATION: Female, 43 years old with history of cp; chest pain TECHNIQUE/CONTRAST: CTA scan of the thorax is performed with IV Contrast, patient injected with 10oml mL of Isovue 370, M IP images are created and reviewed these are created on a separate workstation.. CT DLP: 232.9 mGycm, Automated exposure control for dose reduction was used. FINDINGS: Pulmonary Artery: There is no evidence for a filling defect within the pulmonary vasculature to sugge st acute pulmonary embolism. The pulmonary artery is of normal size. Lungs/Pleura: No evidence of focal consolidation, pleural effusion or pneumothorax. Airway: Large airways are patent. Heart: Heart is within normal limits for size. Vasculature: No evidence of aortic aneurysm. Mediastinum: No gross evidence of adenopathy. Musculoskeletal: No acute osseous abnormalities Soft Tissues/lymph nodes: Unremarkable. Lower neck: No significant findings. Upper Abdomen: No significant acute findings. Gallbladder surgically absent. IMPRESSION: No evidence of acute pulmonary embolism or acute pulmonary pathology. [facility], , 05/18/2024 5:53 PM
[2024-05-18] MEDS: ACETAMINOPHEN TAB 500 MG TAB PO STA (18:08)
[2024-05-18] MEDS: DEXAMETHASONE SOD PHOSPHATE 10 MG/ML 1 ML VIAL IVP STA (18:32)
[2024-05-18] MEDS: KETOROLAC 15 MG/ML 1 ML VIAL IVP STA (18:32)
[2024-05-18 18:50] LABS: Influenza A Not Detected (Not Detectd); Influenza B Not Detected (Not Detectd); RSV Not Detected (Not Detectd)
[2024-05-18 19:12] VITALS: BP 104/66; TEMP 99.3
[2024-05-18] MEDS: IPRATROPIUM-ALBUTEROL 3 ML NEB INHALATION STA (19:35)
[2024-05-18 19:36] VITALS: PULSE 85
== END 2024-05-18 19:50 | disposition home or self-care (01) ==
LOC: EC 15:40
DX: R07.89 Other chest pain (principal); Z87.891 Personal history of nicotine dependence; Z88.0 Allergy status to penicillin; Z88.5 Allergy status to narcotic agent; Z91.018 Allergy to other foods
CPT/HCPCS: 36415; 94640; 93005; 83880; 80053; 83690; 83735; 84484; 85025; 85610; 85730; 87636; 71046; 71275; 99285; 96374; 96375; 96361; J1100; J2405; J1885; J1171; Q9967

== ENCOUNTER 2024-07-14 09:15 | Emergency (ER) | payer OTHER ==
--- NOTE | 2024-07-14 09:46 | ED ---
General Adult HPI - General Chief complaint: Anxiety Stated complaint: anxiety Time Seen by Provider: 07/14/24 09:28 Source: patient, RN notes reviewed Mode of arrival: wheelchair Limitations: no limitations - History of Present Illness Initial comments: Patient is a 43-year-old female presenting to the emergency department with concern with multiple complaints. Patient has chronic chest pain for years that is still bothering her. Patient also has congestion and feels short of breath. Patient admits to feeling anxious and having chronic anxiety as well. Patient also has numbness of her left leg. - Related Data Home Medications Medication Instructions Recorded Confirmed Sertraline [Zoloft] 100 mg PO DAILY 06/08/19 02/13/24 Albuterol Inhaler [Ventolin Hfa 2 puff INHALATION RT-QID PRN 02/13/24 02/13/24 Inhaler] Fluticasone/Umeclidin/Vilanter 1 puff INHALATION RT-DAILY 02/13/24 02/13/24 [Trelegy Ellipta 200-62.5-25] Montelukast [Singulair] 10 mg PO HS 02/13/24 02/13/24 busPIRone HCL 15 mg PO TID 02/13/24 02/13/24 diphenhydrAMINE [Benadryl] 25 mg PO HS 02/13/24 02/13/24 Previous Rx's Medication Instructions Recorded Azithromycin [Zithromax] 250 mg PO DIRECTED 5 Days #6 tab 02/13/24 predniSONE 50 mg PO DAILY 5 Days #5 tab 02/13/24 Allergies Allergy/AdvReac Type Severity Reaction Status Date / Time amoxicillin Allergy Anaphylaxis Verified 07/14/24 09:19 codeine Allergy Nausea & Verified 07/14/24 09:19 Vomiting Penicillins Allergy Anaphylaxis Verified 07/14/24 09:19 morphine AdvReac Dyspnea Verified 07/14/24 09:19 RED & GREEN PEPPER AdvReac Anaphylaxis Uncoded 07/14/24 09:19 Review of Systems ROS Statement: Those systems with pertinent positive or pertinent negative responses have been documented in the HPI. ROS Other: All systems not noted in ROS Statement are negative. Constitutional: Denies: fever Respiratory: Reports: cough Cardiovascular: Reports: as per HPI Psychiatric: Reports: anxiety Past Medical History Past Medical History: Asthma, GERD/Reflux, Seizure Disorder Additional Past Medical History / Comment(s): states seizure August 2015. Obstetric history: She has had 2 vaginal deliveries, 1 elective termination, 2 miscarriages History of Any Multi-Drug Resistant Organisms: None Reported Past Surgical History: Cholecystectomy, Hysterectomy Additional Past Surgical History / Comment(s): EGD Past Anesthesia/Blood Transfusion Reactions: Motion Sickness, Postoperative Nausea & Vomiting (PONV) Past Psychological History: ADD/ADHD, Anxiety, Depression, PTSD, Schizophrenia Smoking Status: Former smoker Past Alcohol Use History: None Reported Past Drug Use History: None Reported - Past Family History Mother Family Medical History: Cancer, Diabetes Mellitus, Hypertension Additional Family Medical History / Comment(s): STOMACH AND PANCREATIC CANCER General Exam Limitations: no limitations General appearance: alert, anxious Head exam: Present: normocephalic Eye exam: Present: normal appearance Neck exam: Present: normal inspection Respiratory exam: Present: normal lung sounds bilaterally. Absent: respiratory distress Cardiovascular Exam: Present: regular rate, normal rhythm Expanded Peripheral pulses: 2+: Radial (R), Radial (L), Posterior Tibialis (R), Posterior Tibialis (L) GI/Abdominal exam: Present: soft. Absent: tenderness, pulsatile mass Extremities exam: Present: normal inspection. Absent: pedal edema, calf tenderness Neurological exam: Present: alert Psychiatric exam: Present: anxious Skin exam: Present: normal color Course Vital Signs 07/14/24 09:16 Temperature 99.0 F Pulse Rate 102 H Respiratory 22 Rate Blood Pressure 97/60 O2 Sat by Pulse 98 Oximetry EKG Findings - EKG Results: EKG: interpreted by ERMD, sinus rhythm, normal axis, normal QRS, normal ST/T EKG shows: tachycardia Medical Decision Making - Medical Decision Making Was pt. sent in by a medical professional or institution (, PA, [employer], urgent care, hospital, or assisted...) When possible be specific @ -No Did you speak to anyone other than the patient for history (EMS, parent, family, police, friend...)? What history was obtained from this source @ -No Did you review nursing and triage notes (agree or disagree)? Why? @ -I reviewed and agree with nursing and triage notes Were old charts reviewed (outside hosp., previous admission, EMS record, old EKG, old radiological studies, urgent care reports/EKG's, assisted records)? Report findings @ -No old charts were reviewed Differential Diagnosis (chest pain, altered mental status, abdominal pain women, abdominal pain men, vaginal bleeding, weakness, fever, dyspnea, syncope, headache, dizziness, GI bleed, back pain, seizure, CVA, palpatations, mental health, musculoskeletal)? @ -Differential Palpitations Ventricular arrhythmias, atrial arrhythmias, myocardial infarction, anemia, thyrotoxicosis, electrolyte imbalance, hypokalemia, pulmonary embolism, pulmonary disease, drugs, alcohol, anxiety, stress.... This is not meant to be an all-inclusive list. EKG interpreted by me (3pts min.). @ -As above X-rays interpreted by me (1pt min.). @ -Chest x-ray shows no acute process CT interpreted by me (1pt min.). @ -None done U/S interpreted by me (1pt. min.). @ -None done What testing was considered but not performed or refused? (CT, X-rays, U/S, labs)? Why? @ -None What meds were considered but not given or refused? Why? @ -None Did you discuss the management of the patient with other professionals (professionals i.e. , PA, [employer], lab, RT, psych nurse, social services specialist, adjunct professor of english, teacher, correction officer city or county jail, family independence case manager)? Give summary @ -No Was smoking cessation discussed for >3mins.? @ -No Was critical care preformed (if so, how long)? @ -No Were there social determinants of health that impacted care today? How? (Homelessness, low income, unemployed, alcoholism, drug addiction, transportation, low edu. Level, literacy, decrease access to med. care, nursing home, rehab)? @ -No Was there de-escalation of care discussed even if they declined (Discuss DNR or withdrawal of care, Hospice)? DNR status @ -No What co-morbidities impacted this encounter? (DM, HTN, Smoking, COPD, CAD, Cancer, CVA, ARF, Chemo, Hep., AIDS, mental health diagnosis, sleep apnea, morbid obesity)? @ -None Was patient admitted / discharged? Hospital course, mention meds given and route, prescriptions, significant lab abnormalities, going to OR and other pertinent info. @ -Patient presents with multiple nonspecific symptoms including anxiety. Patient given Ativan and reevaluated. Patient is significantly improved. Patient only complains of her chronic pain and states she takes Zoloft for this. Patient states she did not take this today and would like this. Patient is updated on results and need for follow-up. Undiagnosed new problem with uncertain prognosis? @ -No Drug Therapy requiring intensive monitoring for toxicity (Heparin, Nitro, Insulin, Cardizem)? @ -No Were any procedures done? @ -No Diagnosis/symptom? @ -Paresthesia, anxiety Acute, or Chronic, or Acute on Chronic? @ -Acute, acute Uncomplicated (without systemic symptoms) or Complicated (systemic symptoms)? @ -Default Side effects of treatment? @ -No Exacerbation, Progression, or Severe Exacerbation? @ -No Poses a threat to life or bodily function? How? (Chest pain, [place], ND, pneumonia, PE, COPD, DKA, ARF, appy, cholecystitis, CVA, Diverticulitis, Homicidal, Suicidal, threat to staff... and all critical care pts) @ -No - Lab Data Result diagrams: 07/14/24 10:37 07/14/24 09:49 Lab Results 07/14/24 07/14/24 07/14/24 Range/Units 09:49 09:49 09:49 WBC (3.8-10.6) k/uL RBC (3.80-5.40) m/uL Hgb (11.4-16.0) gm/dL Hct (34.0-46.0) % MCV (80.0-100.0) fL MCH (25.0-35.0) pg MCHC (31.0-37.0) g/dL RDW (11.5-15.5) % Plt Count (150-450) k/uL MPV Neutrophils % % Lymphocytes % % Monocytes % % Eosinophils % % Basophils % % Neutrophils # (1.3-7.7) k/uL Lymphocytes # (1.0-4.8) k/uL Monocytes # (0-1.0) k/uL Eosinophils # (0-0.7) k/uL Basophils # (0-0.2) k/uL PT 12.3 (10.0-12.5) sec INR 1.1 (<1.2) APTT 25.9 (22.0-30.0) sec D-Dimer 0.45 (<0.60) mg/L FEU Sodium 135 L (137-145) mmol/L Potassium 4.0 (3.5-5.1) mmol/L Chloride 101 (98-107) mmol/L Carbon Dioxide 20 L (22-30) mmol/L Anion Gap 14 mmol/L BUN 11 (7-17) mg/dL Creatinine 0.87 (0.52-1.04) mg/dL Est GFR (CKD-EPI)AfAm >90 (>60 ml/min/1.73 sqM) Est GFR (CKD-EPI)NonAf 82 (>60 ml/min/1.73 sqM) Glucose 98 (74-99) mg/dL Plasma Lactic Acid Alonso 0.8 (0.7-2.0) mmol/L Calcium 10.0 (8.4-10.2) mg/dL Total Bilirubin 1.4 H (0.2-1.3) mg/dL AST 22 (14-36) U/L ALT 11 (4-34) U/L Alkaline Phosphatase 78 (38-126) U/L Troponin I (0.000-0.034) ng/mL Total Protein 8.7 H (6.3-8.2) g/dL Albumin 5.3 H (3.5-5.0) g/dL Influenza Type A (PCR) (Not Detectd) Influenza Type B (PCR) (Not Detectd) RSV (PCR) (Not Detectd) SARS-CoV-2 (PCR) (Not Detectd) 07/14/24 07/14/24 07/14/24 Range/Units 09:49 09:49 10:37 WBC 9.0 (3.8-10.6) k/uL RBC 4.00 (3.80-5.40) m/uL Hgb 12.8 (11.4-16.0) gm/dL Hct 38.7 (34.0-46.0) % MCV 96.7 (80.0-100.0) fL MCH 32.0 (25.0-35.0) pg MCHC 33.0 (31.0-37.0) g/dL RDW 13.1 (11.5-15.5) % Plt Count 149 L (150-450) k/uL MPV 7.7 Neutrophils % 78 % Lymphocytes % 14 % Monocytes % 5 % Eosinophils % 1 % Basophils % 0 % Neutrophils # 7.1 (1.3-7.7) k/uL Lymphocytes # 1.3 (1.0-4.8) k/uL Monocytes # 0.5 (0-1.0) k/uL Eosinophils # 0.1 (0-0.7) k/uL Basophils # 0.0 (0-0.2) k/uL PT (10.0-12.5) sec INR (<1.2) APTT (22.0-30.0) sec D-Dimer (<0.60) mg/L FEU Sodium (137-145) mmol/L Potassium (3.5-5.1) mmol/L Chloride (98-107) mmol/L Carbon Dioxide (22-30) mmol/L Anion Gap mmol/L BUN (7-17) mg/dL Creatinine (0.52-1.04) mg/dL Est GFR (CKD-EPI)AfAm (>60 ml/min/1.73 sqM) Est GFR (CKD-EPI)NonAf (>60 ml/min/1.73 sqM) Glucose (74-99) mg/dL Plasma Lactic Acid Alonso (0.7-2.0) mmol/L Calcium (8.4-10.2) mg/dL Total Bilirubin (0.2-1.3) mg/dL AST (14-36) U/L ALT (4-34) U/L Alkaline Phosphatase (38-126) U/L Troponin I 0.033 (0.000-0.034) ng/mL Total Protein (6.3-8.2) g/dL Albumin (3.5-5.0) g/dL Influenza Type A (PCR) Not Detected (Not Detectd) Influenza Type B (PCR) Not Detected (Not Detectd) RSV (PCR) Not Detected (Not Detectd) SARS-CoV-2 (PCR) Not Detected (Not Detectd) Disposition Clinical Impression: Acute anxiety, Paresthesia Disposition: HOME SELF-CARE Condition: Stable Instructions (If sedation given, give patient instructions): Generalized Anxiety Disorder (ED), Paresthesia (ED) Additional Instructions: Please do follow-up with your primary care physician in the next 1 or 2 days for recheck. Return for difficulty breathing, fevers, chest pain, worsening or changing symptoms or other concerns. Is patient prescribed a controlled substance at d/c from ED?: No Referrals: Fadi Bennett MD [Primary Care Provider] - 1-2 days Time of Disposition: 12:29
[2024-07-14 10:25] LABS: ALT 11 U/L (4-34); African American GFR (CKD) >90 (>60 ml/min/1.73 sqM); Albumin 5.3 g/dL (3.5-5.0); Anion Gap 14 mmol/L; Blood Urea Nitrogen 11 mg/dL (7-17); Carbon Dioxide 20 mmol/L (22-30); Chloride 101 mmol/L (98-107); Glucose 98 mg/dL (74-99); Non-African American GFR(CKD) 82 (>60 ml/min/1.73 sqM); Sodium 135 mmol/L (137-145); Total Bilirubin 1.4 mg/dL (0.2-1.3); Total Protein 8.7 g/dL (6.3-8.2)
[2024-07-14 10:27] LABS: AST 22 U/L (14-36); Alkaline Phosphatase 78 U/L (38-126)
--- NOTE | 2024-07-14 10:40 | XR ---
EXAMINATION TYPE: XR chest 2V DATE OF EXAM: 07/14/2024 CLINICAL INDICATION: Female, 43 years old with history of Weakness, TECHNIQUE: Frontal and lateral views of the chest are obtained. COMPARISON: CTA chest May 18, 2024 FINDINGS: There is no focal air space opacity, pleural effusion, or pneumothorax seen. The cardiac silhouette size is within normal limits. The osseous structures are intact. IMPRESSION: No acute cardiopulmonary process. [facility], , 07/14/2024 10:38 AM
[2024-07-14 11:09] LABS: Basophils % (A) 0 %; Eosinophils # (A) 0.1 k/uL (0-0.7); Eosinophils % (A) 1 %; HCT 38.7 % (34.0-46.0); HGB 12.8 gm/dL (11.4-16.0); Lymphocytes # (A) 1.3 k/uL (1.0-4.8); Lymphocytes % (A) 14 %; MCV 96.7 fL (80.0-100.0); Mean Platelet Volume 7.7; Monocytes # (A) 0.5 k/uL (0-1.0); Monocytes % (A) 5 %; Neutrophils # (A) 7.1 k/uL (1.3-7.7); Neutrophils % (A) 78 %; Platelet Count 149 k/uL (150-450); RDW 13.1 % (11.5-15.5)
[2024-07-14 11:22] LABS: INR 1.1 (<1.2); Partial Thromboplastin Time 25.9 sec (22.0-30.0); Prothrombin Time 12.3 sec (10.0-12.5)
[2024-07-14] MEDS: LORazepam 2 MG/ML INJ IV STA (11:25)
[2024-07-14 11:45] LABS: Influenza A Not Detected (Not Detectd); Influenza B Not Detected (Not Detectd); RSV Not Detected (Not Detectd)
[2024-07-14] MEDS: SERTRALINE 50 MG TAB PO STA (13:11)
[2024-07-14] MEDS: ONDANSETRON ODT 4 MG TAB PO STA (14:10)
[2024-07-14 14:14] VITALS: BP 100/67; PULSE 99; RESP 18; TEMP 98.6
== END 2024-07-14 14:14 | disposition home or self-care (01) ==
LOC: EC 09:15
DX: F41.9 Anxiety disorder, unspecified (principal); R20.2 Paresthesia of skin; R00.0 Tachycardia, unspecified; Z88.0 Allergy status to penicillin; Z88.5 Allergy status to narcotic agent; Z91.018 Allergy to other foods; Z87.891 Personal history of nicotine dependence; Z79.899 Other long term (current) drug therapy
CPT/HCPCS: 36415; 93005; 85379; 80053; 83605; 84484; 85025; 85610; 85730; 87636; 71046; 99284; 96374; J2060